=== PATIENT | male | born 1950 | race Caucasian/White ===

== ENCOUNTER 2020-01-24 07:23 | Outpatient (RCR) | payer SELFPAY | END 2020-08-23 14:23 | disposition home or self-care (01) | LOC: ANHCPRIII 07:23 | PROVIDERS: Visit Provider Internal Medicine Cardiovascular Disease | DX: Z95.1 Presence of aortocoronary bypass graft (principal); Z95.2 Presence of prosthetic heart valve | CPT/HCPCS: 99199 ==

== ENCOUNTER 2020-04-09 14:34 | Emergency (ER) | payer MEDICARE, SELFPAY ==
[2020-04-09] VITALS (7 sets, daily range): BP systolic 126–150; BP diastolic 75–87; PULSE 69–86; RESP 16–22; TEMP 36.7; O2SAT 97–100
--- NOTE | ~2020-04-09 | XR_ITS ---
EXAMINATION: XR chest 2V DATE: 04/09/2020 15:16 INDICATION: Left-sided chest pain TECHNIQUE: PA and lateral views of the chest are obtained. COMPARISON: 12/17/2018 FINDINGS: There is mild atelectasis of the lingula. There is no pleural effusion or pneumothorax. The re are changes of prior cardiac valve surgery. There is moderate thoracic spondylosis. IMPRESSION: 1. No acute cardiopulmonary abnormality. Reviewed, dictated and finalized at location A.
--- NOTE | 2020-04-09 14:44 | ECG_ITS ---
Measurements Intervals [place] Rate: 84 P: 65 RI: 180 QRS: -6 QRSD: 89 T: 53 QT: 378 QTc: 447 Interpretive Statements SINUS RHYTHM EARLY PRECORDIAL R/S TRANSITION NONSPECIFIC ST & T-WAVE ABNORMALITY- INF/LAT LEADS BORDERLINE ECG Electronically Signed On 04-09-2020 16:20:02 CDT by Jay Jonas D.O.
[2020-04-09 15:02] LABS: Basophils Percent Auto 0.3 % (0.2-1.2); Eosinophils Absolute Auto 0.3 K/mm3 (0-0.3); Eosinophils Percent Auto 3.5 % (0-4.4); Hematocrit 47.9 % (42.0-52.0); Hemoglobin 16.1 g/dL (14.0-18.0); Immature Granulocyte Absolute 0.02 K/mm3 (0.00-0.031); Immature Granulocyte Percent A 0.3 % (0-0.5); Lymphocytes Absolute Auto 1.82 K/mm3 (0.9-3.2); Lymphocytes Percent Auto 24.2 % (18.3-44.2); Mean Corpuscular HGB Conc 33.6 g/dl (32-36); Mean Corpuscular Hemoglobin 33.6 pg (26-34); Mean Platelet Volume 10.2 fl (7.4-10.4); Monocytes Absolute Auto 0.6 K/mm3 (0.1-0.6); Monocytes Percent Auto 7.6 % (2.6-8.5); Neutrophils Absolute Auto 4.8 K/mm3 (1.3-6.7); Neutrophils Percent Auto 64.1 % (45.5-73.1); Platelet Count Result 228 k/mm3 (150-375); Red Blood Count 4.79 M/mm3 (4.6-6.20); Red Cell Distribution Width 13.7 % (11.5-14.5); White Blood Count 7.5 K/mm3 (4.5-10.0)
[2020-04-09 15:12] LABS: Prothrombin Time 12.7 Seconds (11.1-14.7)
[2020-04-09 15:13] LABS: Partial Thromboplastin Time 26.1 SECONDS (22.3-36.8)
[2020-04-09 15:15] LABS: Blood Urea Nitrogen 21 mg/dL (9-20); Calcium 9.3 mg/dL (8.4-10.2); Carbon Dioxide 27 mmol/L (22-30); Chloride 102 mmol/L (98-107); Estimated CRCL calculation 66 ml/min; Estimated Glomerular Filt Rate > 60; Glucose 107 mg/dL (75-110); Potassium 4.3 mmol/L (3.4-5.0); Sodium 138 mmol/L (137-145)
[2020-04-09 15:27] LABS: Troponin I < 0.012 ng/mL (0.000-0.034)
--- NOTE | 2020-04-09 15:51 | ED.CHESTPAIN ---
HPI - Chest Pain General Chief Complaint: Chest Pain Stated Complaint: chest pain Time Seen by Provider: 04/09/20 15:06 Source: patient Mode of arrival: ambulatory Limitations: no limitations History of Present Illness HPI narrative: This patient is a 70 year old male with history of mitral valve repair and CaBG who presents for evaluation of mid chest pain. Patient states he has been having intermittent nonradiating midsternal sharp chest pain since yesterday. When his pain presents it will last a few minutes and then it resolves spontaneously. He denies having pain now. He thinks his pain happens when he moves his upper body. He denies exertional pain, sob, diaphoresis, nausea, or vomiting. His advanced practice nurse psychotherapist is Dr. Rai Related Data Home Medications Medication Instructions Recorded Confirmed Aspir-81 04/09/20 04/09/20 carbidopa-levodopa tablet 04/09/20 ezetimibe mg 04/09/20 hydrochlorothiazide 04/09/20 isosorbide mononitrate mg PO 04/09/20 losartan 04/09/20 propranolol 04/09/20 rosuvastatin mg 04/09/20 Allergies Allergy/AdvReac Type Severity Reaction Status Date / Time No Known Allergies Allergy Verified 04/09/20 14:41 Review of Systems Review of Systems: All systems reviewed & are unremarkable except as noted in HPI and below Constitutional: Constitutional: Denies chills and Denies fever(s) ENT: Denies vertigo and Denies nasal congestion Cardiovascular: Cardiovascular: Reports chest pain, Denies rapid heart rate, Denies radiating jaw, neck or arm pain and Denies slow heart rate Respiratory: Respiratory: Denies cough, Denies dyspnea and Denies wheezing Gastrointestinal: Gastrointestinal: Denies abdominal pain, Denies diarrhea, Denies nausea and Denies vomiting [facility] Past Medical History Medical History (Updated 04/09/20 @ 18:44 by Amira Jj MD) CAD (coronary artery disease) Mitral valve disease Surgical History Surgical History (Updated 04/09/20 @ 15:52 by Amira Jj MD) H/O mitral valve repair S/P CABG x 2 Social History Social History Smoking status: Never smoker Alcohol intake: current Exam Const: General: no acute distress and alert Orientation/consciousness: patient oriented x3 Chest: Other: focal tenderness mid sternum Resp: Effort & Inspection: normal respiratory effort and no retractions Auscultation: clear to auscultation bilaterally Cardio: Rate: regular rate Rhythm: regular rhythm Heart sounds: no murmurs GI: Inspection: non-distended Auscultation: normal bowel sounds Other: soft nontender Back/Spine/Pelvis: Back: no CVA tenderness Skin: General skin exam: normal color Rashes: no rashes Course Reevaluation(s) Reevaluation #1: patient has no pain. His chest pain was not associated with any other symptoms and is extremely atypical. I do not believe this is angina but he will call his advanced practice nurse psychotherapist tomorrow. Date: 04/09/20 Time: 18:43 Vital Signs Vital signs: Vital Signs Temperature 98.0 F 04/09/20 14:37 Pulse Rate 86 04/09/20 14:37 Respiratory Rate 20 04/09/20 14:37 Blood Pressure 150/87 H 04/09/20 14:37 Pulse Oximetry 98 04/09/20 14:37 Temperature 98.0 F 04/09/20 14:37 Pulse Rate 77 04/09/20 19:00 Respiratory Rate 22 H 04/09/20 19:00 Blood Pressure 137/87 04/09/20 19:00 Pulse Oximetry 100 04/09/20 19:00 MDM - Chest Pain Lab Data Attestation: I reviewed the patient's lab results. Result diagrams: 04/09/20 14:55 04/09/20 14:55 Labs: Lab Results 04/09/20 04/09/20 04/09/20 Range/Units 14:55 14:55 14:55 WBC 7.5 (4.5-10.0) K/mm3 RBC 4.79 (4.6-6.20) M/mm3 Hgb 16.1 (14.0-18.0) g/dL Hct 47.9 (42.0-52.0) % MCV 100.0 (80-100) fl MCH 33.6 (26-34) pg MCHC 33.6 (32-36) g/dl RDW 13.7 (11.5-14.5) % Plt Count 228 (150-375) k/mm3 MPV 10.2 (7.4-10.4) fl Immature Gran % (Auto) 0.3 (0-0.5)
[2020-04-09] MEDS: ASPIRIN 81 MG CHEWABLE TABLET 324 MG PO (15:58)
[2020-04-09 18:16] LABS: Troponin I < 0.012 ng/mL (0.000-0.034)
== END 2020-04-09 19:00 | disposition home or self-care (01) ==
PROVIDERS: Emergency Provider General Practice; PCP Family Medicine Adolescent Medicine
DX: R07.89 Other chest pain (principal); I34.1 Nonrheumatic mitral (valve) prolapse; Z95.1 Presence of aortocoronary bypass graft; I25.10 Atherosclerotic heart disease of native coronary artery without angina pectoris; R94.31 Abnormal electrocardiogram [ECG] [EKG]
CPT/HCPCS: 36415; 71046; 80048; 84484; 85025; 85610; 85730; 93005; 99284; A9270

== ENCOUNTER 2021-11-05 08:27 | Outpatient (CLI) | payer MEDICARE, SELFPAY ==
--- NOTE | ~2021-11-05 | NM_ITS ---
EXAMINATION: NM bone scan whole body DATE: 11/05/2021 12:01 INDICATION: Prostate cancer TECHNIQUE: 26 mCi Tc-99m HDP was administered intravenously. Delayed whole-body scintigrams were obt ained. COMPARISON: Pelvis MRI dated 11/05/2021 and chest radiograph dated 04/09/2020 FINDINGS: Mild likely degenerative joint centered uptake at the bilateral acromioclavicular and sternoclavicula r joints. Mild likely enthesopathic uptake at the bilateral patellae and anterior tibial tuberosities . Subtle foci of increased uptake along the inferior sternum. The location and absence of other suspi cious foci of abnormal bone uptake to suggest metastatic disease suggest these are likely related to either the costochondral calcification ribs or related to median sternotomy wires as seen on the prio r radiographs. IMPRESSION: 1. No foci of bone uptake suspicious for metastatic disease. Reviewed, dictated and finalized at [facility]. F TALLY CLERK
--- NOTE | ~2021-11-05 | MR_ITS ---
EXAMINATION: MR pelvis wo/w con DATE: 11/05/2021 11:12 INDICATION: Prostate cancer TECHNIQUE: Magnetic resonance imaging (MRI) of the pelvis was performed without and with 20 mL Multih ance intravenous contrast. [place] sequences of the pelvis included axial and coronal T2-weighted S S FSE, axial, sagittal and coronal 2D FIESTA, axial 2D FIESTA FS, axial SSFSE-IR EMMETT, axial dual-echo T1-weighted FSPGR, axial and coronal T1 weighted LAVA, 3D axial T2 Cube, axial diffusion-weighted SE with apparent diffusion coefficient (ADC) maps. Postcontrast sequences included a time course axial T1-weighted LAVA and sagittal and coronal T1-weighted LAVA. COMPARISON: None. FINDINGS: Prostatomegaly measuring 5.2 x 3.6 to 4.7 cm . There is a region of T2 hyperintensity consistent with hydrocele spacer positioned between the posterior margin of the prostate in the anterior wall of the rectum. The collection measures 3.9 cm craniocaudally, 1.2 cm AP and 2.0 cm medial to lateral. There is anterior extension of a small portion of the hydrogel along the left inferior margin of the prost ate. Bladder is normal. Moderate scattered diverticulosis along the descending and sigmoid colon with out adjacent inflammatory change to suggest diverticulitis remainder of the visualized bowels are unr emarkable. Small fat-containing umbilical hernia. No free fluid in the pelvis or lower abdomen. No pa thologically enlarged pelvic, inguinal or lower abdominal lymphadenopathy. Mild lower lumbar spondylo sis. Normal bone marrow signal with no pathologic marrow replacing process. IMPRESSION: 1. 3.9 x 1.2 x 2.0 cm collection of hydrogel situated between the anterior wall of the rectum and the enlarged prostate. 2. No evident metastatic disease. 3. Diverticulosis. Reviewed, dictated and finalized at location . STRINGER
[2021-11-05 09:55] LABS: Estimated Glomerular Filt Rate > 60
== END 2021-11-05 08:28 | disposition home or self-care (01) ==
LOC: ANHIMG 08:38
PROVIDERS: PCP Family Medicine Adolescent Medicine; Visit Provider Radiology Radiation Oncology
DX: C61 Malignant neoplasm of prostate (principal); K57.90 Diverticulosis of intestine, part unspecified, without perforation or abscess without bleeding
CPT/HCPCS: 72197; 78306; A9561; A9577

== ENCOUNTER 2022-12-18 14:17 | Observation (INO) | payer MEDICARE, SELFPAY ==
--- NOTE | ~2022-12-18 | US_ITS ---
EXAMINATION: US venous doppler [facility] DATE: 12/19/2022 15:44 INDICATION: Lower limb edema. TECHNIQUE: Grayscale ultrasound images without and with compression and Doppler ultrasound images of the bilateral lower extremity veins were obtained. COMPARISON: None. FINDINGS: The visualized portions of right common femoral vein, profunda (deep) femoral vein, femoral vein, pop liteal vein, peroneal veins, posterior tibial veins, and greater saphenous vein outflow are patent. The visualized portions of left common femoral vein, profunda femoral vein, femoral vein, popliteal v ein, peroneal veins, posterior tibial veins, and greater saphenous vein outflow are patent. IMPRESSION: 1. No deep venous thrombosis. Reviewed, dictated and finalized at location A. SHOW HOST
[2022-12-18 14:33] VITALS: BP 150/95; PULSE 83; RESP 18; TEMP 36.9; O2SAT 97
[2022-12-18 17:17] VITALS: BP 158/95; PULSE 81; O2SAT 97
[2022-12-18 19:47] LABS: Alanine Aminotransferase 15 U/L (6-50); Albumin Level 4.2 g/dL (3.5-5.1); Alkaline Phosphatase 89 U/L (38-126); Anion Gap 8 mmol/L (8-16); Aspartate Amino Transferase 25 U/L (17-59); Bilirubin,Total 1.1 mg/dL (0.2-1.3); Blood Urea Nitrogen 23 mg/dL (9-20); Carbon Dioxide 28 mmol/L (22-30); Chloride 108 mmol/L (98-107); Estimated CRCL calculation 68 ml/min; Estimated Glomerular Filt Rate > 60; Glucose 101 mg/dL (65-110); Potassium 3.7 mmol/L (3.4-5.0); Sodium 144 mmol/L (137-145)
[2022-12-18 19:48] LABS: Basophils Percent Auto 0.3 % (0.2-1.2); Eosinophils Absolute Auto 0.2 K/mm3 (0-0.3); Eosinophils Percent Auto 2.9 % (0-4.4); Hematocrit 44.4 % (42.0-52.0); Hemoglobin 13.9 g/dL (14.0-18.0); Immature Granulocyte Absolute 0.02 K/mm3 (0.00-0.031); Immature Granulocyte Percent A 0.3 % (0-0.5); Lymphocytes Absolute Auto 0.67 K/mm3 (0.9-3.2); Lymphocytes Percent Auto 10.7 % (18.3-44.2); Mean Corpuscular HGB Conc 31.3 g/dl (32-36); Mean Corpuscular Hemoglobin 32.4 pg (26-34); Mean Corpuscular Volume 103.5 fl (80-100); Mean Platelet Volume 9.9 fl (7.4-10.4); Monocytes Absolute Auto 0.6 K/mm3 (0.1-0.6); Monocytes Percent Auto 8.9 % (2.6-8.5); Neutrophils Absolute Auto 4.8 K/mm3 (1.3-6.7); Neutrophils Percent Auto 76.9 % (45.5-73.1); Platelet Count Result 182 k/mm3 (150-375); Red Blood Count 4.29 M/mm3 (4.6-6.20); Red Cell Distribution Width 13.9 % (11.5-14.5); White Blood Count 6.3 K/mm3 (4.5-10.0)
[2022-12-18 20:16] VITALS: BP 152/94; PULSE 81; RESP 16; TEMP 36.7; O2SAT 98
--- NOTE | 2022-12-18 21:59 | ED.MALEGU ---
HPI - Male Genitourinary General Chief complaint: Urogenital-Male Stated complaint: hematuria Time Seen by Provider: 12/18/22 21:08 History of Present Illness HPI Narrative: Patient with history of prostate ca receiving radiation therapy has had urinary retention and hematuria since yesterday. No fevers or chills, has never had symptoms like this in the past. Now completely unable to produce urine at the vertigo. Is distended and uncomfortable Related Data Home Medications Medication Instructions Recorded Confirmed Aspir-81 1 tablet PO DAILY 04/09/20 12/19/22 carbidopa 25 mg-levodopa 100 mg 2 tablet PO TID 04/09/20 12/19/22 tablet ezetimibe 10 mg tablet 1 mg PO DAILY 04/09/20 12/19/22 losartan 100 mg tablet 100 mg PO DAILY 04/09/20 12/19/22 propranolol 60 mg tablet 60 mg PO DAILY 04/09/20 12/19/22 rosuvastatin 40 mg tablet 40 mg PO DAILY 04/09/20 12/19/22 omega-3 fatty acids-fish oil 360 1 cap PO DAILY 10/23/22 12/19/22 mg-1,200 mg capsule (Fish Oil) tamsulosin 0.4 mg capsule 0.4 mg PO DAILY 10/23/22 12/19/22 escitalopram oxalate 10 mg tablet 10 mg PO DAILY 12/19/22 12/19/22 mirtazapine 7.5 mg tablet 3.75 mg PO HS 12/19/22 12/19/22 oxybutynin chloride 15 mg 15 mg PO DAILY 12/19/22 12/19/22 tablet,extended release 24 hr Allergies Allergy/AdvReac Type Severity Reaction Status Date / Time No Known Allergies Allergy Verified 12/19/22 02:15 Review of Systems Review of Systems: CONST: No fever. HEENT: No sore throat C/V: No chest pain RESP: No cough GI: Reports abdominal distention : Hematuria and retention M/S: No joint pain. SKIN: No rash. NEURO: [No headache or focal numbness or weakness] PSYCH: [No depression] [facility] Past Medical History Medical History (Updated 12/19/22 @ 04:07 by Isatu Robertson MD) CAD (coronary artery disease) Malignant neoplasm of prostate (2020) 2020 Mitral valve disease Parkinson's disease 12/04 Surgical History Surgical History H/O mitral valve repair (2016) History of coronary artery stent placement (2004) S/P CABG x 2 (2016) Family History Family History Father Heart disease Mother Heart disease Social History Social History Smoking status: Former smoker Tobacco type: cigarettes Alcohol intake: never Substance use: never Substance use type: does not use Lack of Transportation: No Lack of Food: Never True Current Housing: I Have Housing Concerned About Future Housing: No Difficulty Paying Gas/Electric Bills: No Difficulty Paying for Meds: No Currently Unemployed: No Education: Trade/Vocational Certificate Difficulty w/ Childcare or Family Care: No Spiritual care concerns: No Exam Narrative: EXAMINATION OF ORGAN SYSTEMS/BODY AREAS: Constitutional: Vital signs per nursing GENERAL: Appears quite uncomfortable HEAD: Normal with no signs of head trauma. EYES: EOMI, conjunctiva normal ENT: Hearing grossly intact LUNGS: Nonlabored breathing. HEART: [Regular rate and rhythm] ABD: [Soft], [distended, somewhat tender to palpation] EXT: Normal range of motion SKIN: [No rashes or lesions.] NEURO: [Alert and oriented x 3. Tremulous.] PSYCH: Normal affect Course Vital Signs Vital signs: Vital Signs Temperature 98.4 F 12/18/22 14:33 Pulse Rate 83 12/18/22 14:33 Respiratory Rate 18 12/18/22 14:33 Blood Pressure 150/95 H 12/18/22 14:33 Pulse Oximetry 97 12/18/22 14:33 Oxygen Delivery Room Air 12/18/22 14:33 Temperature 96.9 F L 12/19/22 02:20 Pulse Rate 82 12/19/22 02:20 Respiratory Rate 20 12/19/22 02:20 Blood Pressure 126/67 12/19/22 02:20 Pulse Oximetry 100 12/19/22 02:20 Oxygen Delivery Room Air 12/19/22 02:47 MDM - Male Genitourinary MDM Narrative Medical decision making narrative: 72-year-old male presenting with u
[2022-12-18 22:02] LABS: Appearance Urine Cloudy (Clear); Bilirubin Urine 1+ (Negative); Blood Urine 3+ (Negative); Color Urine Yellow (Yellow); Glucose Urine UA Negative (Negative); Ketones Urine Trace mg/dL (Negative); Leukocyte Esterase Ur 3+ LEU/UL (Negative); Nitrate Urine Negative (Negative); Protein Urine 3+ mg/dL (Negative)
[2022-12-18 22:07] LABS: Bacteria Urine Trace /hpf; Mucus Urine Heavy /lpf; RBC Urine >75 /hpf (0-2); Squamous Epithelial Cell Urine Many /hpf (Few); WBC Urine >75 /hpf
[2022-12-18 22:08] LABS: Add Urine Microscopic? YES
[2022-12-18] MEDS: CIPROFLOXACIN 400 MG/D5W 200ML 200 ML 200 MG IVPB (22:33)
--- NOTE | 2022-12-18 23:23 | WPDURCON ---
Assessment and Plan Assessment and plan (1) Urinary retention: Code(s): R33.9 - Retention of urine, unspecified Status: Acute Assessment and Plan: I attempted to advance a glide wire per urethra, however the wire kept bending back. Thus a flexible cystoscope was placed and a dense bulbar urethral stricture noted with a 4-6F opening noted. A glidewire was advanced through and to the bladder. A 16F [place] was then advanced through the stricture and to the bladder with return of urine, 10 cc of sterile water placed, 1600 mL of tea colored urine drained. Plan Maintain catheter, minimum 1 week. Recommend antibiotics to cover pathogens for 3-4 days. Follow up with Dr. Anaya. Urology Consult Note HPI Date Seen: 12/18/22 Primary Care Provider: iWll Mac MD Consult Narrative Narrative: Nando Interiano is a 72 year old male Review of Systems Review of Systems: 72 year old man with Parkinson's and history of prostate cancer s/p IMRT, current patient of Dr. Lockhart significant LUTS. Started on Gemtesa and then Ditropan. Reports he has not voided for 2 days, except for small squirts of urine and as of this afternoon, blood without clots. SCr 1.00 mg/dL. He denies fevers or chills. ER has attempted catheter placement x2 without success. Constitutional: Comments: none Eyes: Comments: none ENT: Comments: none Cardiovascular: Comments: none Respiratory: Comments: none Gastrointestinal: Comments: none Genitourinary: Comments: urinary retention, hematuria. Musculoskeletal: Comments: none Integumentary/Breasts: Comments: none Neurologic: Comments: none Psychiatric: Comments: none [facility] Past Medical History Medical History (Updated 12/18/22 @ 23:27 by Andrew Salmon MD) CAD (coronary artery disease) Mitral valve disease Surgical History Surgical History (Updated 10/22/22 @ 16:33 by Will Mac MD) H/O mitral valve repair (2016) History of coronary artery stent placement (2004) S/P CABG x 2 (2016) Social History Social History Smoking status: Never smoker Alcohol intake: current Meds Home Medications and Allergies Home Medications Medication Instructions Recorded Confirmed Type Aspir-81 04/09/20 04/09/20 History carbidopa 25 mg-levodopa 100 mg tablet 04/09/20 History tablet ezetimibe 10 mg tablet mg 04/09/20 History losartan 100 mg tablet 04/09/20 History propranolol 60 mg tablet 04/09/20 History rosuvastatin 40 mg tablet mg 04/09/20 History omega-3 fatty acids-fish oil 360 1 cap PO DAILY 10/23/22 History mg-1,200 mg capsule (Fish Oil) tamsulosin 0.4 mg capsule 0.4 mg PO DAILY 10/23/22 History Allergies Allergy/AdvReac Type Severity Reaction Status Date / Time No Known Allergies Allergy Verified 10/23/22 10:07 Vital Signs Vital Signs - 24 hr 12/18/22 14:33 12/18/22 17:17 12/18/22 20:16 Temperature 98.4 F 98.1 F Pulse Rate 83 81 81 Respiratory Rate 18 16 Blood Pressure 150/95 H 158/95 H 152/94 H Pulse Oximetry 97 97 98 Oxygen Delivery Room Air Exam Narrative: Minimal distress, A&Ox3 RRR eWOB Soft, bladder palpable. Blood at meatus. Results Labs 12/18/22 19:26 12/18/22 19:26 Labs: Short CBC 12/18/22 Range/Units 19:26 WBC 6.3 (4.5-10.0) K/mm3 Hgb 13.9 L (14.0-18.0) g/dL Hct 44.4 (42.0-52.0) % Plt Count 182 (150-375) k/mm3 BMP 12/18/22 19:26 Sodium 144 Potassium 3.7 Chloride 108 H Carbon Dioxide 28 BUN 23 H Creatinine 1.00 Glucose 101 Calcium 9.0 Liver Function 12/18/22 Range/Units 19:26 Total Bilirubin 1.1 (0.2-1.3) mg/dL AST 25 (17-59) U/L ALT 15 (6-50) U/L Alkaline Phosphatase 89 (38-126) U/L Albumin 4.2 (3.5-5.1) g/dL Urine 12/18/22 Range/Units 21:45 Urine Color Yellow (Yellow) Urine Appearance Cloudy H (Clear) Urine pH
--- NOTE | 2022-12-18 23:31 | P.OP_ITS ---
Procedure Note - Detailed Date of Procedure 12/18/22 Pre-op Diagnosis urinary retention Post-op Diagnosis Same Procedure Performed 1. Flexible cystoscopy 2. Urethral stricture dilation by calibration 3. Complex catheter placement Surgeon Andrew Salmon MD Anesthesia None Indications Patient in urinary retention and unable to place catheter after multiple attempts by ER staff. Findings 4-6F urethral sticture 16F [place] placed over wire with some difficulty. 1600 mL of tea colored urine drained. Description of Procedure Under sterile conditions a flexible cystoscope was placed atraumatically. The cystosope was navigated through the urethra to the bulbar urethra where a dense stricture was noted with a 4-6 cm lumen noted. A straight glidewire was advanced through the working channel of the cystoscope and through the lumen of the stricture and into the bladder. The cystoscope was removed and a 16F [place] catheter advanced over the wire and into the bladder with return of urine, 10 cc of sterile water placed in balloon. Patient tolerated well. Estimated Blood Loss 2 (2 mL) Drains Yes (16F [place] catheter) Condition Stable Disposition Other (Per ER)
[2022-12-18] MEDS: SODIUM CHLORIDE 0.9% IV 1,000 ML 999 ML (23:32)
[2022-12-19] VITALS (8 sets, daily range): BP systolic 112–132; BP diastolic 64–72; PULSE 53–82; RESP 16–20; TEMP 36.1–37.1; O2SAT 96–100
--- NOTE | 2022-12-19 | ECHO_ITS ---
Patient Info Name: Nando Interiano Age: 72 years : 1950 Gender: Male Ht: 71 in Wt: 215 lbs BSA: 2.23 m2 HR: 58 bpm BP: 112 / 64 mmHg Heart Rhythm: Sinus Rhythm Technical Quality: Fair Exam Date: 12/19/2022 4:17 PM Exam Location: [facility] Pulmonary Exam Room: 257 Patient Status: Inpatient Admit Date: 12/18/2022 Staff Ordering Physician: Jacqueline Barrientos PA-C Brand Coordinator: Dayanna Recinos RDCS Attending Provider: Batool Garcia DO Referring Physician: Floyd CARTER; Exam Type: CA echo dop color flow w con Study Info Indications - MVR EDEMA Complete two-dimensional, color flow and Doppler transthoracic echocardiogram is performed with contrast to opacify the left ventricle and to improve the deliniation of the left ventricle endocardial borders. Contrast/Agitated Saline Contrast/Ag. Saline: Definity Amount: 2.00 ml Administered By: Dayanna Recinos [facility] Existing IV Access: Yes IV Access Condition: patent with no signs of infiltration Summary 1. Left ventricular chamber dimension is mildly enlarged. 2. Left ventricular systolic function is normal, estimated at 60-65%. 3. There is mildly increased left ventricular wall thickness. 4. The left ventricular diastolic function is grade I diastolic dysfunction. 5. Left atrial chamber dimension is mildly enlarged. 6. There is moderate aortic valve regurgitation. 7. There is mild mitral valve regurgitation. 8. There is mild to moderate tricuspid valve regurgitation. 9. Mild pulmonary hypertension, estimated pulmonary arterial systolic pressure is 42 mmHg. 10. There is moderate pulmonic regurgitation. Left Ventricle Left ventricular chamber dimension is mildly enlarged. Left ventricular systolic function is normal, estimated at 60-65%. There is mildly increased left ventricular wall thickness. The left ventricular diastolic function is grade I diastolic dysfunction. Right Ventricle Right ventricular chamber dimension is normal. Right ventricular systolic function is normal. Left Atria Left atrial chamber dimension is mildly enlarged. Right Atria Right atrial chamber dimension is normal. Atrial Septum Intact interatrial septum visualized by color flow imaging. Aortic Valve The aortic valve is trileaflet. There is no aortic valve stenosis. There is moderate aortic valve regurgitation. Pulmonic Valve The pulmonic valve is normal. There is no pulmonic valve stenosis. There is moderate pulmonic regurgitation. Mitral Valve The mitral valve has thickened leaflets. There is no mitral valve stenosis. There is mild mitral valve regurgitation. Tricuspid Valve The tricuspid valve leaflets are normal. There is no significant tricuspid valve stenosis. There is mild to moderate tricuspid valve regurgitation. Mild pulmonary hypertension, estimated pulmonary arterial systolic pressure is 42 mmHg. Pericardium/Pleural The pericardium appears normal. There is trivial pericardial effusion. Aorta The aortic root size at the sinus of Valsalva is dilated. Left Ventricular Outflow Tract Name Value Normal LVOT 2D LVOT Diameter 2.21 cm L
[2022-12-19] MEDS: ACETAMINOPHEN 500 MG TABLET 1000 MG PO (00:33)
[2022-12-19] MEDS: LIDOCAINE HCL 2% GEL UROJET 10 ML PKG MUCOUS MEM (00:35)
--- NOTE | 2022-12-19 02:16 | ADMGEN ---
This patient, Nando Interiano, was admitted to 2 Medical Room 257-01. Patient/family oriented to hospital policies and general routines including ID bracelet, bed and alarms, visiting hours, pain management, procedures, bathroom and other care routines, personal items, smoking policy, room service/diet, and visiting hours. Information on how to activate the Rapid Response Team has been discussed. Patient/Family are encouraged to report perceived risks to care and to ask questions if they do not understand what they are told or what they should do.
[2022-12-19 02:22] LABS: Influenza A QL RT-PCR Negative (Negative); Influenza B QL RT-PCR Negative (Negative); RSV RNA, RT-PCR Negative (Negative); SARS-CoV-2 RNA PCR Negative
[2022-12-19 05:21] LABS: Basophils Percent Auto 0.2 % (0.2-1.2); Eosinophils Absolute Auto 0.1 K/mm3 (0-0.3); Eosinophils Percent Auto 1.9 % (0-4.4); Hematocrit 34.1 % (42.0-52.0); Hemoglobin 10.8 g/dL (14.0-18.0); Immature Granulocyte Absolute 0.02 K/mm3 (0.00-0.031); Immature Granulocyte Percent A 0.3 % (0-0.5); Lymphocytes Absolute Auto 0.56 K/mm3 (0.9-3.2); Lymphocytes Percent Auto 9.7 % (18.3-44.2); Mean Corpuscular HGB Conc 31.7 g/dl (32-36); Mean Corpuscular Hemoglobin 32.2 pg (26-34); Mean Corpuscular Volume 101.8 fl (80-100); Mean Platelet Volume 9.8 fl (7.4-10.4); Monocytes Absolute Auto 0.6 K/mm3 (0.1-0.6); Monocytes Percent Auto 10.3 % (2.6-8.5); Neutrophils Absolute Auto 4.5 K/mm3 (1.3-6.7); Neutrophils Percent Auto 77.6 % (45.5-73.1); Platelet Count Result 143 k/mm3 (150-375); Red Blood Count 3.35 M/mm3 (4.6-6.20); Red Cell Distribution Width 13.5 % (11.5-14.5); White Blood Count 5.8 K/mm3 (4.5-10.0)
[2022-12-19 05:34] LABS: Magnesium 2.1 mg/dL (1.6-2.3); Phosphorus 3.6 mg/dL (2.5-4.5)
[2022-12-19 05:40] LABS: Alanine Aminotransferase 19 U/L (6-50); Albumin Level 2.9 g/dL (3.5-5.1); Alkaline Phosphatase 61 U/L (38-126); Anion Gap 5 mmol/L (8-16); Aspartate Amino Transferase 19 U/L (17-59); Bilirubin,Total 0.9 mg/dL (0.2-1.3); Blood Urea Nitrogen 22 mg/dL (9-20); Carbon Dioxide 26 mmol/L (22-30); Chloride 110 mmol/L (98-107); Estimated CRCL calculation 64 ml/min; Estimated Glomerular Filt Rate > 60; Glucose 99 mg/dL (65-110); Potassium 3.5 mmol/L (3.4-5.0); Sodium 141 mmol/L (137-145)
--- NOTE | 2022-12-19 07:18 | WPDUROPN2 ---
Progress Note: A&P Assessment and Plan (1) Acute urinary retention: Code(s): R33.8 - Other retention of urine Status: Acute (2) Malignant neoplasm of prostate: Onset Date: 2020 Code(s): C61 - Malignant neoplasm of prostate Status: Acute (3) Urinary retention: Code(s): R33.9 - Retention of urine, unspecified Status: Acute Assessment and Plan: Urine minimally blood tinged, no clots. Will need catheter indwelling for 7 days. Possibly home later today if urine continues to clear. Subjective Subjective Date/Time Seen: 12/19/22 07:18 Comfortable, no complaints Review of Systems Cardiovascular: Cardiovascular: Denies chest pain, Denies lightheadedness, Denies palpitations and Denies dyspnea Respiratory: Respiratory: Denies dyspnea Gastrointestinal: Gastrointestinal: Denies diarrhea, Denies nausea and Denies vomiting Genitourinary: Genitourinary: Denies hematuria and Denies dysuria Endocrine: Endocrine: Denies palpitations Exam Const: General: no acute distress Resp: Effort & Inspection: normal respiratory effort GI: Inspection: non-distended GI Palp: No abdominal tenderness and No Guarding due to palpation present (GI) Auscultation: normal bowel sounds Urinary Catheter: Urinary Catheter: patent and draining and urine pink Objective Data Vital Signs Vital Signs: Vital Signs - 24 hr 12/18/22 14:33 12/18/22 17:17 12/18/22 20:16 Temperature 98.4 F 98.1 F Pulse Rate 83 81 81 Respiratory Rate 18 16 Blood Pressure 150/95 H 158/95 H 152/94 H Pulse Oximetry 97 97 98 Oxygen Delivery Room Air 12/19/22 01:49 12/19/22 02:20 12/19/22 02:47 Temperature 98.8 F 96.9 F L Pulse Rate 82 82 Respiratory Rate 18 20 Blood Pressure 132/72 126/67 Pulse Oximetry 98 100 Oxygen Delivery Room Air 12/19/22 04:09 Temperature 97.1 F L Pulse Rate 67 Respiratory Rate 20 Blood Pressure 112/64 Pulse Oximetry 96 Oxygen Delivery Intake/Output Intake/Output: Intake & Output 12/16/22 12/17/22 12/18/22 12/19/22 23:59 23:59 23:59 23:59 Intake Total 1580 Output Total 1200 1650 Balance -1200 -70 Meds/Results Medications: Active Medications Generic Name Dose Route Start Last Admin Trade Name Silverio PRN Reason Stop Dose Admin Acetaminophen 650 mg 12/19/22 03:49 Acetaminophen 325 Mg Tablet PO Q4H PRN Mild Pain (1-3) or Fever Carbidopa/Levodopa 2 tablet 12/19/22 08:00 Carbidopa/Levodopa 25/100 Mg Tablet PO TIDWM [facility] Ezetimibe 10 mg 12/19/22 09:00 Ezetimibe 10 Mg Tablet PO DAILY [facility] Escitalopram Oxalate 10 mg 12/19/22 09:00 Escitalopram Oxalate 10 Mg Tablet PO DAILY [facility] Fish Oil 1 gm 12/19/22 09:00 [place] 3 Polyunsat Fatty Acids 1 Gm Cap PO DAILY [facility] Losartan Potassium 100 mg 12/19/22 09:00 Losartan Potassium 100 Mg Tablet PO DAILY [facility] Mirtazapine 3.75 Mg 1 each 12/19/22 21:00 Tablet PO HS [facility] Propranolol HCl 60 mg 12/19/22 09:00 Propranolol Hcl 60 Mg Capsule Cr PO DAILY [facility] Rosuvastatin Calcium 40 mg 12/19/22 09:00 Rosuvastatin 10 Mg Tablet PO DAILY [facility] Tamsulosin HCl 0.4 mg 12/19/22 09:00 Tamsulosin Hcl 0.4 Mg Capsule PO DAILY [facility] Labs Labs: Laboratory Results - last 24 hr 12/18/22 12/18/22 12/18/22 19:26 19:26 21:45 WBC 6.3 RBC 4.29 L Hgb 13.9 L Hct 44.4 MCV 103.5 H MCH 32.4 MCHC 31.3 L RDW 13.9 Plt Count 182 MPV 9.9 Immature Gran % (Auto) 0.3 Neut % (Auto) 76.9 H Lymph % (Auto) 10.7 L [place] % (Auto) 8.9 H Eos % (Auto) 2.9 Baso % (Auto) 0.3 Lymph # (Auto) 0.67 L [place] # (Auto) 0.6 Eos # (Auto) 0.2 Baso # (Auto) 0.0 Abs Immat Gran (auto) 0.02 Absolute Neuts (auto) 4.8 Absolute Nucleated RBC 0.0 Nucleated RBC % 0.0 Sodium 144 Potassium 3.7 Chloride 108 H Carbon Dioxide 28 Anion Gap 8 BUN
[2022-12-19] MEDS: TAMSULOSIN HCL 0.4 MG CAPSULE PO (08:48)
[2022-12-19] MEDS: LOSARTAN POTASSIUM 100 MG TABLET PO (08:48)
[2022-12-19] MEDS: ROSUVASTATIN 10 MG TABLET 40 MG PO (08:48)
[2022-12-19] MEDS: CARBIDOPA/LEVODOPA 25/100 MG TABLET 2 TABLET PO ×3 (08:48→18:07)
[2022-12-19] MEDS: PROPRANOLOL HCL 60 MG CAPSULE CR PO (08:49)
[2022-12-19] MEDS: OMEGA 3 POLYUNSAT FATTY ACIDS 1 GM CAP PO (08:50)
[2022-12-19] MEDS: ESCITALOPRAM OXALATE 10 MG TABLET PO (08:50)
[2022-12-19] MEDS: EZETIMIBE 10 MG TABLET PO (08:50)
[2022-12-19] MEDS: BISACODYL 5 MG TABLET EC 10 MG PO (09:00)
[2022-12-19 11:38] LABS: Toxigenic C. Diff NEGATIVE (NEGATIVE)
--- NOTE | 2022-12-19 13:41 | PM.IMHP ---
H&P: HPI History of Present Illness Date/Time: 12/19/22 13:41 Chief Complaint: Urinary tension, hematuria Narrative: This is a 72-year-old male with a history of prostate cancer, Parkinson's disease, hypertension, and mitral valve disease. Patient presented to the ED on at the 12/18/22 with complaints of urinary retention and hematuria. Patient states that he has not urinated in 2 days prior to ED arrival. Patient noticed blood when he was attempt to go to the bathroom and about 3 drops of urine came out with blood in it. Patient states that he had feelings of feeling bloated and felt as if he had to use the restroom. When he attempted to urinate nothing would come out. Denies pain, fever, nausea vomiting. Bladder scan done in the ED and showed greater than 1 L of urine in the bladder. Chou catheter placement attempted although ER staff could not place catheter. Urology consulted and [address] [place] was placed through the stricture and into the bladder. 1600 mL of tea-colored urine was drained. UA positive for 3+ leukocyte esterase, greater than 75 RBCs, greater than 75 wbc's, many squamous epithelial cells and heavy mucus. Patient not being treated for UTI but urine cultures are pending. Other labs unremarkable. Patient negative COVID and flu. Patient underwent flexible cystoscopy, urethral stricture dilation by calibration and a catheter placement. Patient admitted to observation. Urology following patient. Review of Systems Review of Systems: All systems reviewed & are unremarkable except as noted in HPI and below PMFSH Past Medical History Medical History CAD (coronary artery disease) Malignant neoplasm of prostate (2020) 2020 Mitral valve disease Parkinson's disease 12/04 Surgical History Surgical History H/O mitral valve repair (2016) History of coronary artery stent placement (2004) S/P CABG x 2 (2016) Family History Family History Father Heart disease Mother Heart disease Social History Social History Smoking status: Former smoker Tobacco type: cigarettes Alcohol intake: never Substance use: never Substance use type: does not use Lack of Transportation: No Lack of Food: Never True Current Housing: I Have Housing Concerned About Future Housing: No Difficulty Paying Gas/Electric Bills: No Difficulty Paying for Meds: No Currently Unemployed: No Education: Trade/Vocational Certificate Difficulty w/ Childcare or Family Care: No Spiritual care concerns: No Meds Home Medications and Allergies Home Medications Medication Instructions Recorded Confirmed Type Aspir-81 1 tablet PO DAILY 04/09/20 12/19/22 History carbidopa 25 mg-levodopa 100 mg 2 tablet PO TID 04/09/20 12/19/22 History tablet ezetimibe 10 mg tablet 1 mg PO DAILY 04/09/20 12/19/22 History losartan 100 mg tablet 100 mg PO DAILY 04/09/20 12/19/22 History propranolol 60 mg tablet 60 mg PO DAILY 04/09/20 12/19/22 History rosuvastatin 40 mg tablet 40 mg PO DAILY 04/09/20 12/19/22 History omega-3 fatty acids-fish oil 360 1 cap PO DAILY 10/23/22 12/19/22 History mg-1,200 mg capsule (Fish Oil) tamsulosin 0.4 mg capsule 0.4 mg PO DAILY 10/23/22 12/19/22 History escitalopram oxalate 10 mg tablet 10 mg PO DAILY 12/19/22 12/19/22 History mirtazapine 7.5 mg tablet 3.75 mg PO HS 12/19/22 12/19/22 History oxybutynin chloride 15 mg 15 mg PO DAILY 12/19/22 12/19/22 History tablet,extended release 24 hr Allergies Allergy/AdvReac Type Severity Reaction Status Date / Time No Known Allergies Allergy Verified 12/19/22 02:15 Vital Signs Vital Signs - 24 hr 12/18/22 14:33 12/18/22 17:17 12/18/22 20:16 Temperature 98.4 F 98.1 F Pulse Rate 83 81 81 Respiratory Rate 18 16 [place]
[2022-12-19] MEDS: PERFLUTREN LIPID MICROSPHERES 1.5 ML VIAL DILUTED TO 10 ML TOTAL VOLUME IV PUSH (16:40)
--- NOTE | 2022-12-19 16:47 | IVDEFINITY ---
Prior to administration of IV Definity the patient was educated on the risks and benefits of the imaging enhancing agent including potential adverse side effects. The patient verbalized understanding. Allergies were verified. No exclusion criteria were identified and at least one of the following inclusion criteria were met: 1) physician request, 2) patient technically difficult to image (per the [place] [employer] guidelines of two or more segments not discernable within the apical view), or 3) questionable left ventricular function. ?
[2022-12-19] MEDS: ACETAMINOPHEN 325 MG TABLET 650 MG PO (20:59)
[2022-12-20 04:36] VITALS: BP 136/74; PULSE 55; RESP 20; TEMP 36; O2SAT 96
[2022-12-20 06:21] LABS: Basophils Percent Auto 0.4 % (0.2-1.2); Eosinophils Absolute Auto 0.3 K/mm3 (0-0.3); Eosinophils Percent Auto 7.2 % (0-4.4); Hematocrit 35.2 % (42.0-52.0); Hemoglobin 11.2 g/dL (14.0-18.0); Immature Granulocyte Absolute 0.01 K/mm3 (0.00-0.031); Immature Granulocyte Percent A 0.2 % (0-0.5); Lymphocytes Absolute Auto 0.68 K/mm3 (0.9-3.2); Lymphocytes Percent Auto 14.4 % (18.3-44.2); Mean Corpuscular HGB Conc 31.8 g/dl (32-36); Mean Corpuscular Hemoglobin 32.3 pg (26-34); Mean Corpuscular Volume 101.4 fl (80-100); Mean Platelet Volume 9.7 fl (7.4-10.4); Monocytes Absolute Auto 0.5 K/mm3 (0.1-0.6); Neutrophils Absolute Auto 3.1 K/mm3 (1.3-6.7); Neutrophils Percent Auto 66.8 % (45.5-73.1); Platelet Count Result 153 k/mm3 (150-375); Red Blood Count 3.47 M/mm3 (4.6-6.20); Red Cell Distribution Width 13.7 % (11.5-14.5); White Blood Count 4.7 K/mm3 (4.5-10.0)
[2022-12-20 06:28] LABS: Alanine Aminotransferase 12 U/L (6-50); Albumin Level 3.2 g/dL (3.5-5.1); Alkaline Phosphatase 61 U/L (38-126); Anion Gap 4 mmol/L (8-16); Aspartate Amino Transferase 17 U/L (17-59); Bilirubin,Total 0.9 mg/dL (0.2-1.3); Blood Urea Nitrogen 23 mg/dL (9-20); Calcium 8.1 mg/dL (8.4-10.2); Carbon Dioxide 27 mmol/L (22-30); Chloride 107 mmol/L (98-107); Estimated CRCL calculation 70 ml/min; Estimated Glomerular Filt Rate > 60; Glucose 91 mg/dL (65-110); Potassium 3.4 mmol/L (3.4-5.0); Sodium 138 mmol/L (137-145)
[2022-12-20 06:36] LABS: NT Pro B Type Natriuretic Pept 537 pg/mL (19.9-100)
[2022-12-20 08:35] VITALS: PULSE 57
[2022-12-20] MEDS: PROPRANOLOL HCL 60 MG CAPSULE CR PO (08:35)
[2022-12-20] MEDS: ENOXAPARIN 40 MG/0.4 ML SYRINGE SUB-Q (08:35)
[2022-12-20] MEDS: CARBIDOPA/LEVODOPA 25/100 MG TABLET 2 TABLET PO ×3 (08:36→16:36)
[2022-12-20] MEDS: EZETIMIBE 10 MG TABLET PO (08:36)
[2022-12-20] MEDS: LOSARTAN POTASSIUM 100 MG TABLET PO (08:36)
[2022-12-20] MEDS: OMEGA 3 POLYUNSAT FATTY ACIDS 1 GM CAP PO (08:36)
[2022-12-20] MEDS: ROSUVASTATIN 10 MG TABLET 40 MG PO (08:36)
[2022-12-20] MEDS: TAMSULOSIN HCL 0.4 MG CAPSULE PO (08:36)
[2022-12-20] MEDS: ESCITALOPRAM OXALATE 10 MG TABLET PO (08:36)
--- NOTE | 2022-12-20 11:24 | PM.IMPN ---
Progress Note: A&P Assessment and Plan (1) Acute urinary retention: Code(s): R33.8 - Other retention of urine Status: Acute Assessment and Plan: Patient presents to the ED with acute urinary retention for 2 days. Urology consulted Catheter placement yielding 1600 mL of urine Patient underwent flexible cystoscopy, urethral stricture dilation and catheter placement. Urology following patient appreciate recommendations Recommended patient keep catheter for a total of 7 days. (2) Hematuria: Code(s): R31.9 - Hematuria, unspecified Status: Acute Assessment and Plan: Patient found to be dribbling blood from urethral orifice. Patient found to have urethral stricture Urology following UA suspicious for UTI. Urine culture pending. Patient started on IV Rocephin (3) Malignant neoplasm of prostate: Onset Date: 2020 Code(s): C61 - Malignant neoplasm of prostate Status: Acute Assessment and Plan: Patient received radiation during the months of November and January of 2022. Last PSA a week or 2 ago was within normal limits (4) Edema: Code(s): R60.9 - Edema, unspecified Status: Acute Assessment and Plan: Patient has lower extremity edema and stated that this had just developed over the past week or 2. 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 Patient eager to go home. Patient's swelling mildly improved. Denies fevers, nausea, vomiting, chest pain and shortness of breath. Review of Systems Review of Systems: All systems reviewed & are unremarkable except as noted in HPI and below Exam Narrative: GENERAL: Comfortable, no acute distress HENMT: moist mucous membranes EYES: EOM intact b/l NECK: no lymphadenopathy RESPIRATORY: clear to auscultation CARDIO: RRR GI: soft, nontender, bowel sounds present : Urinary catheter placed and draining blood tinged urine SKIN: no rashes EXTREMITIES: 2+ pitting edema from mid thigh down. Improved from yesterday Objective Data Vital Signs Vital Signs: Vital Signs - 24 hr 12/19/22 14:33 12/19/22 20:06 12/19/22 20:00 Temperature 98.1 F 97.0 F L Pulse Rate 60 53 L 82 Respiratory Rate 16 18 18 Blood Pressure 116/64 121/68 Pulse Oximetry 97 98 98 Oxygen Delivery Room Air 12/20/22 04:36 12/20/22 08:35 12/20/22 08:35 Temperature 96.8 F L Pulse Rate 55 L 57 L Respiratory Rate 20 Blood Pressure 136/74 Pulse Oximetry 96 Oxygen Delivery Room Air Intake/Output Intake/Output: Intake & Output 12/17/22 12/18/22 12/19/22 12/20/22 23:59 23:59 23:59 23:59 Intake Total 2710 750 Output Total 1200 2100 300 Balance -1200 610 450 Meds/Results Medications: Active Medications Generic Name Dose Route Start Last Admin Trade Name Freq PRN Reason Stop Dose Admin Acetaminophen 650 mg 12/19/22 03:49 12/19/22 20:59 Acetaminophen 325 Mg Tablet PO 650 mg Q4H PRN Administration Mild Pain (1-3) or Fever Carbidopa/Levodopa 2 tablet 12/19/22 08:00 12/20/22 08:36 Carbidopa/Levodopa 25/100 Mg Tablet PO 2 tablet TIDWM DEIDRA Administration Ezetimibe 10 mg 12/19/22 09:00 12/20/22 08:36 Ezetimibe 10 Mg Tablet PO 10 mg DAILY DEIDRA Administration Enoxaparin Sodium 40 mg 12/20/22 09:00 12/20/22 08:35 Enoxaparin 40 Mg/0.4 Ml Syringe SUB-Q 40 mg DAILY DEIDRA Administration Escitalopram Oxalate 10 mg 12/19/22 09:00 12/20/22 08:36 Escitalopram Oxalate 10 Mg Tablet PO 10 mg DAILY DEIDRA Administration Fish Oil 1 gm 12/19/22 09:00
[2022-12-20 15:00] VITALS: BP 114/63; PULSE 53; RESP 20; TEMP 36.5; O2SAT 96
--- NOTE | 2022-12-20 16:34 | PM.DS ---
DS: Admitting Diagnosis Discharge Date 12/20/22 Admitting Diagnosis Urinary retention, hematuria DS: Discharge Diagnosis Discharge Diagnosis (1) Acute urinary retention: Code(s): R33.8 - Other retention of urine Status: Acute Assessment and Plan: Patient presents to the ED with acute urinary retention for 2 days. Urology consulted Catheter placement yielding 1600 mL of urine Patient underwent flexible cystoscopy, urethral stricture dilation and catheter placement. Urology following patient appreciate recommendations Recommended patient keep catheter for a total of 7 days. (2) Hematuria: Code(s): R31.9 - Hematuria, unspecified Status: Acute Assessment and Plan: Patient found to be dribbling blood from urethral orifice. Patient found to have urethral stricture Urology following UA suspicious for UTI. Urine culture negative Patient started on IV Rocephin and then discontinued after urine culture negative (3) Malignant neoplasm of prostate: Onset Date: 2020 Code(s): C61 - Malignant neoplasm of prostate Status: Acute Assessment and Plan: Patient received radiation during the months of November and January of 2022. Last PSA a week or 2 ago was within normal limits (4) Edema: Code(s): R60.9 - Edema, unspecified Status: Acute Assessment and Plan: Patient has lower extremity edema and stated that this had just developed over the past week or 2. 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 Patient had not urinated 2 days prior to arrival to ED. patient did notice that he had some blood tinged urine at the urethral orifice and felt as if he should be evaluated. ED nurses were unable to insert Chou catheter and Urology consulted. Chou catheter placed and 1600 mL of tea-colored urine was strained. UA positive for 3+ leukocyte esterase, greater than 75 RBCs, greater than 75 wbc's, many squamous epithelial cells heavy mucus. Patient started on Rocephin. Urine culture sent. Patient underwent flexible cystoscopy, urethral stricture dilation and catheter placement. Patient advised to follow-up with urology as an outpatient to have catheter removed. Urine culture came back negative. Antibiotics discontinued. Patient cleared for discharge to follow-up with urology. Time Spent with Patient Time attestation: Total time spent providing and/or coordinating discharge services: Exam Narrative: GENERAL: Comfortable, no acute distress HENMT: moist mucous membranes EYES: EOM intact b/l NECK: no lymphadenopathy RESPIRATORY: clear to auscultation CARDIO: RRR GI: soft, nontender, bowel sounds present : Urinary catheter placed and draining blood tinged urine SKIN: no rashes EXTREMITIES: 2+ pitting edema from mid thigh down. Improved from yesterday DS: Data Data Completed and Pending Labs on day of discharge: Labs from last 24 hours 12/20/22 12/20/22 06:01 06:01 WBC 4.7 RBC 3.47 L Hgb 11.2 L Hct 35.2 L MCV 101.4 H MCH 32.3 MCHC 31.8 L RDW 13.7 Plt Count 153 MPV 9.7 Immature Gran % (Auto) 0.2 Neut % (Auto) 66.8 Lymph % (Auto) 14.4 L [place] % (Auto) 11.0 H Eos % (Auto) 7.2 H Baso % (Auto) 0.4 Lymph # (Auto) 0.68 L [place] # (Auto) 0.5 Eos # (Auto) 0.3 Baso # (Auto) 0.0 Abs Immat Gran (auto) 0.01 Absolute Neuts (auto) 3.1 Absolute Nucleated RBC 0.0 Nucleated RBC % 0.0 Sodium 138 [place]
== END 2022-12-20 18:40 | disposition home or self-care (01) ==
LOC: ANHED 22:25 → ANH2MED 12-19 02:08
PROVIDERS: Internal Medicine Critical Care Medicine; Admitting Provider Internal Medicine; Emergency Provider Emergency Medicine; PCP Family Medicine Adolescent Medicine; Visit Provider Internal Medicine
DX: N35.912 Unspecified bulbous urethral stricture, male (principal); R33.9 Retention of urine, unspecified; R31.9 Hematuria, unspecified; Z85.46 Personal history of malignant neoplasm of prostate; I25.10 Atherosclerotic heart disease of native coronary artery without angina pectoris; Z95.1 Presence of aortocoronary bypass graft; G20 Parkinson's disease; I10 Essential (primary) hypertension; R60.9 Edema, unspecified; Z87.891 Personal history of nicotine dependence; Z20.822 Contact with and (suspected) exposure to COVID-19
CPT/HCPCS: 52281; 36415; 80053; 81001; 83735; 83880; 84100; 85025; 87086; 87088; 87493; 87637; 93970; 96365; 96366; 96367; 96372; 96375; 99285; A9270; C1769; C8929; G0378; J0696; J0744; J1650; J7030; Q9957

== ENCOUNTER 2023-06-03 07:48 | Outpatient (CLI) | payer MEDICARE, SELFPAY ==
--- NOTE | 2023-06-03 08:00 | ECG_ITS ---
Measurements Intervals [place] Rate: 69 P: -17 HI: 182 QRS: -18 QRSD: 90 T: 99 QT: 378 QTc: 408 Interpretive Statements SINUS RHYTHM DELAYED PRECORDIAL R/S TRANSITION BORDERLINE ST-T WAVE ABNORMALITY- HIGH LATERAL LEADS BASELINE ARTIFACT- I, II, III, AVR, AVL, AVF, V2-V3 BORDERLINE ECG COMPARED TO ECG 04/09/2020 14:40:39 NO SIGNIFICANT CHANGES Electronically Signed On 06-03-2023 8:41:53 CDT by Jay Jonas D.O.
== END 2023-06-03 07:49 | disposition home or self-care (01) ==
LOC: ANHSURGERY 07:56
PROVIDERS: PCP Family Medicine Adolescent Medicine; Visit Provider Urology
DX: I10 Essential (primary) hypertension (principal); Z01.818 Encounter for other preprocedural examination; R94.31 Abnormal electrocardiogram [ECG] [EKG]
CPT/HCPCS: 93005

== ENCOUNTER 2023-06-09 01:42 | Day surgery (SDC) | payer MEDICARE, SELFPAY ==
[2023-05-27 15:07] VITALS: BMI 31.0
--- NOTE | 2023-05-27 15:23 | PC.NURSE ---
PRE-OP INSTRUCTIONS, PLEASE READ CAREFULLY Report to the Outpatient Waiting Room, entrance under the green pavilion located off [facility], at time _1000_ on date _06/09/23_. Planned Procedure Time: _1200_. Time changes happen often and if your time is changed the preop area will call you the afternoon before. - You and your visitor will be asked to self-screen and do not enter if you have any COVID symptoms. - A mask is optional within the hospital at this time. Patients may have clear liquids (water, carbonated beverages, clear teas, apple juice) until 3 hours prior to surgery (0900 AM) with a maximum of 20 ounces. - No food from midnight until time of surgery Take the following medications with a SIP of water the morning of surgery: _CARBIDOPA-LEVODOPA, PROPRANOLOL_ DO NOT STOP ANY OF YOUR OTHER PRESCRIPTION MEDICATIONS PRIOR TO SURGERY ?EXCEPT THE FOLLOWING Medications to discontinue - _ASPIRIN & FISH OIL PER DR. DUBOSE'S INSTRUCTIONS_ Date to take last dose Please no make-up, nail [place], hairspray, perfume, deodorant, or body powder the day of surgery. No jewelry (including any body piercings) or valuables the day of surgery, leave them at home. Please take a shower or bath the night before, or the morning of, surgery with an antibacterial soap. Wear comfortable, loose fitting clothing. - Jewelry must be removed prior to entering the operating room. Rings and piercings that are not removed may be cut off. - The hospital will not accept responsibility for valuables. - Please leave all valuables, including medications, at home the day of surgery. If you are going home after surgery, a licensed fork truck driver must drive you home. - NO public transportation without another adult if you receive anesthesia. - We recommend that an adult stay with you for 24 hours following discharge. - We also recommend that you do not drive, make important decision, drink alcoholic beverages, or take any drugs that were not prescribed by your health care provider for at least 24 hours after your discharge time. Follow any additional instructions given to you from your surgeon. If you or anyone in your household have experienced Covid symptoms in the past week, please notify your surgeon or the nurse liaison at the phone number below for possible testing. Telephone instructions given to _PATIENT_and asked if any additional questions and then verbalized understanding. Patient advised to call surgeon office or pre surgery nurse liaison [phone] if any additional questions.
[2023-06-09] VITALS (7 sets, daily range): BP systolic 109–125; BP diastolic 68–85; PULSE 47–62; RESP 12–20; TEMP 36.1–36.3; O2SAT 100
--- NOTE | ~2023-06-09 | XR_ITS ---
XR urethrocystogram 06/09/2023 12:58 Indication: Retrograde urethrogram. Urethral dilation. Procedure: 3 fluoroscopic images from retrograde urethrogram are submitted. 19 seconds of fluoroscopy . Comparison: No prior studies for comparison. Findings: There is normal contrast opacification of the urethra. No focal strictures or intraluminal filling defects are identified. Please refer to procedural report for details. Impression: 1: Unremarkable retrograde urethrogram. Please refer to procedural report for details. Reviewed, dictated and finalized at location A. Impression: 1: Unremarkable retrograde urethrogram. Please refer to procedural report for d etails.
--- NOTE | 2023-06-09 07:51 | WPDANESEPPF ---
Anes - Initial Pre Proc Eval Procedure: Operation Date: 06/09/23 12:00 Proposed Procedures p Cystoscopy, Retrograde Pyelography, Urethral Dilatation - Rodolfo Anaya MD Date/Time: 06/09/23 07:51 Surgeon: Rodolfo Anaya MD Pre Op Diagnosis: uretheral stricture Patient Data Age: 73 Gender: M Height: 1.75 m Weight: 95.45 kg Allergies Allergy/AdvReac Type Severity Reaction Status Date / Time No Known Allergies Allergy Verified 06/09/23 10:09 Home Medications Medication Instructions Recorded Confirmed Type Aspir-81 1 tablet PO DAILY 04/09/20 05/27/23 History carbidopa 25 mg-levodopa 100 mg 3 tablet PO TID 04/09/20 05/27/23 History tablet losartan 100 mg tablet 100 mg PO DAILY 04/09/20 05/27/23 History propranolol 60 mg tablet 60 mg PO DAILY 04/09/20 05/27/23 History rosuvastatin 40 mg tablet 40 mg PO DAILY 04/09/20 05/27/23 History omega-3 fatty acids-fish oil 360 1 cap PO DAILY 10/23/22 05/27/23 History mg-1,200 mg capsule (Fish Oil) tamsulosin 0.4 mg capsule 0.4 mg PO DAILY 10/23/22 05/27/23 History mirtazapine 7.5 mg tablet 3.75 mg PO HS 12/19/22 05/27/23 History mirabegron 25 mg tablet,extended 25 mg PO DAILY 05/27/23 05/27/23 History release 24 hr (Myrbetriq) Patient hx anesthesia problems: none Family hx anesthesia problems: none Results Review: All pre-operative results and documents have been reviewed as part of the pre-operative evaluation. [facility] Past Medical History Medical History (Updated 06/09/23 @ 07:52 by Nando Torres DO) Anxiety CAD (coronary artery disease) Malignant neoplasm of prostate (2020) 2020 Mitral valve disease Parkinson's disease 12/04 PVD (peripheral vascular disease) Surgical History Surgical History H/O mitral valve repair (2016) History of coronary artery stent placement (2004) S/P CABG x 2 (2017) Family History Family History Father Heart disease Mother Heart disease Social History Social History Smoking packs per day: 1.5 Smoking cigarettes per day: 30.0 Years smoked: 31 Smoking pack-years: 46.50 Smoking status: Former smoker Tobacco type: cigarettes Second hand tobacco smoke exposure: No Smoking end date: 11/16/92 Alcohol intake: never Substance use: never Substance use type: does not use Lack of Transportation: No Lack of Food: Never True Current Housing: I Have Housing Concerned About Future Housing: No Difficulty Paying Gas/Electric Bills: No Difficulty Paying for Meds: No Currently Unemployed: No Education: Trade/Vocational Certificate Difficulty w/ Childcare or Family Care: No Living arrangements: with family Spiritual care concerns: No Anes - Eval Final PreProcedure Day of Procedure 06/09/23 07:51 Patient weight: obese Heart: regular rate and rhythm Lungs: clear to auscultation Airway: Mallampati scale class II Neurological: alert and oriented Last oral intake: >/= 8 hours ASA classification: IV Emergent: no Anesthetic plan: proceed Anesthesia type and monitoring: general LMA and standard monitoring Results Review: All pre-operative results and documents have been reviewed as part of the pre-operative evaluation. Informed Consent: The patient's anesthetic plan and its attendant risks and benefits were discussed with the patient/family/POA. Questions were solicited and answers provided to the satisfaction of the patient/family/POA.
--- NOTE | 2023-06-09 10:38 | SUR.PREOP ---
Patient unable to void for urine specimen. Notified Dr Anaya who cancelled specimen.
[2023-06-09] MEDS: LACTATED RINGERS 1,000 ML 30 ML IV CONT (10:43)
--- NOTE | 2023-06-09 12:14 | WPDHPUPDATE1 ---
History and Physical Update Update Date/Time: 06/09/23 12:14 History and Physical has been reviewed, including an updated exam of the patient. There are NO changes in the patient's condition. Risks, benefits, and alternatives have been discussed and questions answered. Patient agrees to proceed with procedure. Proceed with cystoscopy, retrograde urethrogram, urethral dilation
[2023-06-09] MEDS: ceFAZolin 2 GM/D5W 50 ML 2 GM/50 ML BAG IVPB (12:27)
[2023-06-09] MEDS: LIDOCAINE HCL 2% GEL UROJET 10 ML PKG MUCOUS MEM (12:50)
--- NOTE | 2023-06-09 12:56 | P.OP_ITS ---
Procedure Note - Detailed Date of Procedure 06/09/23 Pre-op Diagnosis uretheral stricture Post-op Diagnosis Same Procedure Performed Retrograde urethrogram, cystoscopy, urethral dilation with amplantz dilators 24 fr., complex Chou catheter placement 20 [place] tip Surgeon Rodolfo Anaya MD Anesthesia General Description of Procedure Patient is taken to the operative suite correctly identified. Once anesthesia was obtained was placed in dorsal lithotomy position and prepped draped usual sterile fashion. Sixteen [place] red rubber catheters inserted into the urethra and a retrograde urethrogram was performed. He has a tight bulbar stricture. I could not get any contrast go into the bladder. I then used a Glidewire was able to manipulated through a small tiny opening and under fluoroscopy confirmed placement into the bladder. And plans dilators were placed and a superstiff wire was then passed into the bladder. The urethral stricture was dilated up to 24 [place]. Reinspection now cystoscopy revealed no other strictures. Prostate has some lateral lobe hypertrophy. The bladder itself has no evidence of bladder tumors at this time. 2% viscous lidocaine was inserted into the urethra. Twenty [place] tip catheter was then passed over the guidewire into the bladder. 10 cc was placed in the balloon. Patient is taken recovery stable condition. Will plan on removing the catheter on Thursday. This completes to take a degroot on this patient. Please send a copy of this op note to my office. Estimated Blood Loss 0 Drains Yes Packing No Pathology None sent Complications No immediate complications Condition Stable Disposition PACU
[2023-06-09] MEDS: oxyCODONE HCL (*CRX) 5 MG TAB IR PO (14:08)
== END 2023-06-09 14:32 | disposition home or self-care (01) ==
PROVIDERS: PCP Family Medicine Adolescent Medicine; Visit Provider Urology
PROC: 0T7D8ZZ Dilation of Urethra, Via Natural or Artificial Opening Endoscopic (ICD-10-PCS; CPT 52281; principal; 2023-06-09 12:00)
DX: N35.912 Unspecified bulbous urethral stricture, male (principal); I25.10 Atherosclerotic heart disease of native coronary artery without angina pectoris; G20 Parkinson's disease; I73.9 Peripheral vascular disease, unspecified; F41.9 Anxiety disorder, unspecified; Z95.5 Presence of coronary angioplasty implant and graft; Z95.1 Presence of aortocoronary bypass graft; Z85.46 Personal history of malignant neoplasm of prostate; Z87.891 Personal history of nicotine dependence; E66.9 Obesity, unspecified; Z68.29 Body mass index [BMI] 29.0-29.9, adult; Z79.82 Long term (current) use of aspirin
CPT/HCPCS: 52281; 51610; 74450; A9270; C1726; C1769; J0690; J1100; J2405; J2704; J3010; J7120; Q9966

== ENCOUNTER 2025-01-16 12:17 | Emergency (ER) | payer MEDICARE, SELFPAY ==
[2025-01-16] VITALS (7 sets, daily range): BP systolic 120–154; BP diastolic 74–92; PULSE 61–85; RESP 15–20; TEMP 36.4–36.8; O2SAT 97–100
[2025-01-16 14:54] LABS: Basophils Percent Auto 0.2 % (0.2-1.2); Eosinophils Percent Auto 0.4 % (0-4.4); Hematocrit 45.7 % (42.0-52.0); Hemoglobin 14.9 g/dL (14.0-18.0); Immature Granulocyte Absolute 0.03 K/mm3 (0.00-0.031); Immature Granulocyte Percent A 0.3 % (0-0.5); Lymphocytes Absolute Auto 0.79 K/mm3 (0.9-3.2); Lymphocytes Percent Auto 7.3 % (18.3-44.2); Mean Corpuscular HGB Conc 32.6 g/dl (32-36); Mean Corpuscular Volume 101.1 fl (80-100); Monocytes Absolute Auto 0.6 K/mm3 (0.1-0.6); Monocytes Percent Auto 5.7 % (2.6-8.5); Neutrophils Absolute Auto 9.3 K/mm3 (1.3-6.7); Neutrophils Percent Auto 86.1 % (45.5-73.1); Platelet Count Result 190 k/mm3 (150-375); Red Blood Count 4.52 M/mm3 (4.6-6.20); Red Cell Distribution Width 13.2 % (11.5-14.5); White Blood Count 10.8 K/mm3 (4.5-10.0)
--- NOTE | 2025-01-16 14:54 | ED.ABDPAIN ---
HPI - Abdominal Pain General Chief Complaint: Abdominal Pain <Abigail Greer APRN - Last Filed: 01/16/25 14:57> Stated Complaint: abd pain <Abigail Greer APRN - Last Filed: 01/16/25 14:57> Time Seen by Provider: 01/16/25 16:00 <Abigail Greer APRN - Last Filed: 01/16/25 14:57> Focused HPI: Patient is a 74-year-old male who presents to the with abdominal pain that radiates to his right flank. He reports it started approximately 9:00 a.m. this morning. Patient reports he had a bowel movement this morning at 7:00 a.m. and it was normal for him. Patient or cyst history of high blood pressure, Parkinson's, and Agent [place] exposure. He denies any history of COPD or diabetes. Patient reports the abdominal pain comes and goes. GENERAL: Well-appearing, well-nourished, and in mild distress d/t abdominal pain. HEAD: Normocephalic, atraumatic. CHEST: Clear to auscultation. ?No respiratory distress. HEART: Regular rate and rhythm.? NEURO: ?Alert and oriented x3. Patient screened in triage and initial orders placed.? ?Additional care and disposition to be based upon?diagnostic testing and treatment. <Abigail Greer APRN - Last Filed: 01/16/25 14:57> History of Present Illness HPI narrative: 74 YEARS OLD WHITE MALE CAME TO THE ED WITH HIS BY PRIVATE CAR COMPLAINING OF SUDDEN ONSET OF LOWER ABDOMINAL PAIN STARTED 9:00 A.M. TODAY, SHARP, STABBING, FEELING LIKE HIS ABDOMEN IS SWOLLEN AND TIGHT. SYMPTOMS ARE IMPROVING ON ARRIVAL TO THE ED. PATIENT DENIES ANY FEVER, CHILLS, NAUSEA, VOMITING, DIARRHEA, CONSTIPATION. PATIENT WAS ABLE TO URINATE AND DEFECATE PRIOR TO ARRIVAL WITHOUT ANY SIGNIFICANT EFFECT ON THE PAIN. HISTORY OF HYPERTENSION HYPERLIPIDEMIA MITRAL VALVE REPAIR [place], CURRENTLY ON BABY ASPIRIN ONCE A DAY. PATIENT DOES NOT SMOKE OR DRINK OR USE DRUGS <Garret Torres MD - Last Filed: 01/16/25 18:57> Related Data Home Medications: Home Medications ?Medication ?Instructions ?Recorded ?Confirmed ?Last Taken ?Type Aspir-81 1 tablet PO DAILY 04/09/20 06/18/23 Unknown History carbidopa 25 mg-levodopa 100 mg 3 tablet PO TID 04/09/20 06/18/23 Unknown History tablet losartan 100 mg tablet 100 mg PO DAILY 04/09/20 06/18/23 Unknown History propranolol 60 mg tablet 60 mg PO DAILY 04/09/20 06/18/23 Unknown History rosuvastatin 40 mg tablet 40 mg PO DAILY 04/09/20 06/18/23 Unknown History omega-3 fatty acids-fish oil 360 1 cap PO DAILY 10/23/22 06/18/23 Unknown History mg-1,200 mg capsule (Fish Oil) tamsulosin 0.4 mg capsule 0.4 mg PO DAILY 10/23/22 06/18/23 Unknown History mirtazapine 7.5 mg tablet 3.75 mg PO HS 12/19/22 06/18/23 Unknown History mirabegron 25 mg tablet,extended 25 mg PO DAILY 05/27/23 06/18/23 Unknown History release 24 hr (Myrbetriq) <Abigail Greer APRN - Last Filed: 01/16/25 14:57> Allergies/Adverse Reactions: Allergies Allergy/AdvReac Type Severity Reaction Status Date / Time No Known Allergies Allergy Verified 06/18/23 09:42 <Abigail Greer APRN - Last Filed: 01/16/25 14:57> Review of Systems Review of Systems: All systems reviewed & are unremarkable except as noted in HPI and below <Garret Torres MD - Last Filed: 01/16/25 18:57> [facility] Past Medical History Medical History: Medical History Anxiety PVD (peripheral vascular disease) Malignant neoplasm of prostate (2020) 2020 Parkinson's disease 12/04 CAD (coronary artery disease) Mitral valve disease <Abigail Greer APRN - Last Filed: 01/16/25 14:57> Surgical History Surgical History: Surgical History History of coronary artery stent placement (2004) H/O mitral valve repair (2016) S/P CABG x 2 (2016) <Abigail Greer APRN - Last Filed: 01/16/25 14:57> Family History Family History: Family History Father Heart disease Mother Heart disease <Abigail Greer APRN - Last Filed: 01/16/25 14:57> Social History Social History: Social History Smoking packs per day: 1.5 Smoking cigarettes per day: 30.0 Years smoked: 31 Smoking pack-years: 46.50 Smoking status: Former smoker Tobacco type: cigarettes Second hand tobacco smoke exposure: No Smoking end date: 11/16/92 Alcohol intake: never Substance use: never Substance use type: does not use Lack of Transportation: No Lack of Food: Never True Current Housing: I Have Housing Concerned About Future Housing: No Difficulty Paying Gas/Electric Bills: No Difficulty Paying for Meds: No Currently Unemployed: No Education: Trade/Vocational Certificate Difficulty w/ Childcare or Family Care: No Living arrangements: with family Spiritual care concerns: No <Abigail Greer PROFESSOR OF COMMUNICATION ARTS - Last Filed: 01/16/25 14:57> Exam Narrative: GENERAL APPEARANCE: WELL-DEVELOPED, WELL-NOURISHED SKIN: NORMAL COLOR HEAD: NORMOCEPHALIC, NONTRAUMATIC EYES: CLEAR CONJUNCTIVA ENT: OROPHARYNX NORMAL, EARS NORMAL, NOSE NORMAL NECK: SUPPLE, NONTENDER CHEST AND RESPIRATORY: AIRWAY PATENT, NO RESPIRATORY DISTRESS, NO ACCESSORY MUSCLE USE HEART: REGULAR RATE/RHYTHM ABDOMEN: SOFT, SLIGHT DIFFUSE TENDERNESS ACROSS THE LOWER ABDOMEN, NO BRUISES, NO SWELLING, NO RASH, NO GUARDING OR REBOUND, NO ORGANOMEGALY, QUIET BOWEL SOUNDS VASCULAR: NORMAL PERIPHERAL PULSES, NORMAL CAPILLARY REFILL. MUSCULOSKELETAL: NORMAL RANGE OF MOTION, NONTENDER BACK NEUROLOGIC: ALERT AND ORIENTED ?3, COURT ABSTRACTOR IS NORMAL TESTED, NO GROSS MOTOR DEFICIT <Garret Torres MD - Last Filed: 01/16/25 18:57> Course Vital Signs Vital signs: Vital Signs Temperature 36.6 C 01/16/25 12:35 Pulse Rate 61 01/16/25 12:35 Respiratory Rate 15 01/16/25 12:35 Blood Pressure 120/74 01/16/25 12:35 Pulse Oximetry 99 01/16/25 12:35 Temperature 36.5 C 01/16/25 16:59 Pulse Rate 85 01/16/25 18:00 Respiratory Rate 20 01/16/25 18:00 Blood Pressure 153/86 H 01/16/25 18:00 Pulse Oximetry 97 01/16/25 18:00 Oxygen Delivery Room Air 01/16/25 16:46 <Abigail Greer APRN - Last Filed: 01/16/25 14:57> Vital Signs Temperature 36.6 C 01/16/25 12:35 Pulse Rate 61 01/16/25 12:35 Respiratory Rate 15 01/16/25 12:35 Blood Pressure 120/74 01/16/25 12:35 Pulse Oximetry 99 01/16/25 12:35 Temperature 36.5 C 01/16/25 16:59 Pulse Rate 85 01/16/25 18:00 Respiratory Rate 20 01/16/25 18:00 Blood Pressure 153/86 H 01/16/25 18:00 Pulse Oximetry 97 01/16/25 18:00 Oxygen Delivery Room Air 01/16/25 16:46 <Garret Torres MD - Last Filed: 01/16/25 18:57> MDM - Abdominal Pain MDM Narrative Medical decision making narrative: PATIENT PRESENTS WITH LOWER ABDOMINAL PAIN VITAL SIGNS ARE STABLE PHYSICAL EXAMINATION CONSISTENT WITH SLIGHT TENDERNESS ACROSS THE LOWER ABDOMEN DIFFERENTIAL DIAGNOSIS INCLUDE DIVERTICULITIS, APPENDICITIS, COLITIS, DIVERTICULITIS, URINARY TRACT INFECTION, CONSTIPATION, INTRA-ABDOMINAL MALIGNANCY. BLOOD WORK TODAY WITH CBC, CMP, LIPASE SHOWED WBC OF 10.8 URINALYSIS SHOWED 2+ PROTEIN, 2+ KETONE, 3+ BLOOD 3+ LEUKOCYTE ESTRACE, WBC MORE THAN 100 CT ABDOMEN AND PELVIS WITH IV CONTRAST SHOWED Right-sided hydroureteronephrosis without an obstructing calculus identified. 8 mm nonobstructing stone within the lower pole of the right kidney. Asymmetric perinephric fat stranding on the right, possibly sequelae of a recently passed stone. Hiatal hernia with eccentric wall thickening for which direct visualization is recommended (nonemergently). PATIENT RECEIVED 1 G OF ROCEPHIN IV PRIOR TO DISCHARGE, DISCHARGED ON CIPRO 500 B.I.D. FOR 10 DAYS <Garret Torres MD - Last Filed: 01/16/25 18:57> Differential Diagnosis Differential diagnosis: Likely other ( ABOVE) <Garret Torres MD - Last Filed: 01/16/25 18:57> Medical Records Attestation: I reviewed the patient's medical records. <Garret Torres MD - Last Filed: 01/16/25 18:57> Lab Data Attestation: I reviewed the patient's lab results. <Garret Torres MD - Last Filed: 01/16/25 18:57> Result diagrams: 01/16/25 14:33 01/16/25 14:33 <Abigail Greer APRN - Last Filed: 01/16/25 14:57> Labs: Lab Results 01/16/25 01/16/25 Range/Units 14:33 16:22 WBC 10.8 H (4.5-10.0) K/mm3 RBC 4.52 L (4.6-6.20) M/mm3 Hgb 14.9 D (14.0-18.0) g/dL Hct 45.7 (42.0-52.0) % MCV 101.1 H (80-100) fl MCH 33.0 (26-34) pg MCHC 32.6 (32-36) g/dl RDW 13.2 (11.5-14.5) % Plt Count 190 (150-375) k/mm3 MPV 10.0 (7.4-10.4) fl Immature Gran % (Auto) 0.3 (0-0.5) % Neut % (Auto) 86.1 H (45.5-73.1) % Lymph % (Auto) 7.3 L (18.3-44.2) % Brule % (Auto) 5.7 (2.6-8.5) % Eos % (Auto) 0.4 (0-4.4) % Baso % (Auto) 0.2 (0.2-1.2) % Lymph # (Auto) 0.79 L (0.9-3.2) K/mm3 Brule # (Auto) 0.6 (0.1-0.6) K/mm3 Eos # (Auto) 0.0 (0-0.3) K/mm3 Baso # (Auto) 0.0 (0.0-0.1) K/mm3 Abs Immat Gran (auto) 0.03 (0.00-0.031) K/mm3 Absolute Neuts (auto) 9.3 H (1.3-6.7) K/mm3 Absolute Nucleated RBC 0.000 (0.0-0.012) K/mm3 Nucleated RBC % 0.0 (0.0-0.2) % Sodium 142 (137-145) mmol/L Potassium 4.7 (3.4-5.0) mmol/L Chloride 107 (98-107) mmol/L Carbon Dioxide 22 (22-30) mmol/L Anion Gap 13 H (4-12) mmol/L BUN 19 (9-20) mg/dL Creatinine 0.81 (0.7-1.3) mg/dL Estim Creat Clear Calc 80 ml/min Estimated GFR > 60 (59 - ) Glucose 98 (65-110) mg/dL Calcium 9.3 (8.4-10.2) mg/dL Total Bilirubin 1.3 (0.2-1.3) mg/dL AST 32 (17-59) U/L ALT 19 (6-50) U/L Alkaline Phosphatase 79 (38-126) U/L Total Protein 8.0 (6.3-8.2) g/dL Albumin 4.2 (3.5-5.1) g/dL Lipase 41 (23-300) U/L Urine Color Yellow (Yellow) Urine Appearance Cloudy H (Clear) Urine pH 5.0 (5.0-9.0) Ur Specific [place] 1.015 (1.001-1.035) Urine Protein 2+ H (Negative) mg/dL Urine Glucose (UA) Negative (Negative) mg/dL Urine Ketones 2+ H (Negative) mg/dL Ur Blood (Man) 3+ H (Negative) Urine Nitrate Negative (Negative) Urine Bilirubin Negative (Negative) Urine Urobilinogen 0.2 (<2.0) mg/dL Leukocyte Esterase Rfl 3+ H (Negative) ANALISA/UL Urine RBC 21-50 H (0-2) /hpf Urine WBC >100 H (0-3) /hpf Ur Squamous Epith Cells None seen (Few) /hpf Urine Bacteria 1+ H /hpf Urine Casts 0-2 <Abigail Greer, PROFESSOR OF COMMUNICATION ARTS - Last Filed: 01/16/25 14:57> Lab Results 03/03/25 03/03/25 Range/Units 14:33 16:22 WBC 10.8 H (4.5-10.0) K/mm3 RBC 4.52 L (4.6-6.20) M/mm3 Hgb 14.9 D (14.0-18.0) g/dL Hct 45.7 (42.0-52.0) % MCV 101.1 H (80-100) fl MCH 33.0 (26-34) pg MCHC 32.6 (32-36) g/dl RDW 13.2 (11.5-14.5) % Plt Count 190 (150-375) k/mm3 MPV 10.0 (7.4-10.4) fl Immature Gran % (Auto) 0.3 (0-0.5) % Neut % (Auto) 86.1 H (45.5-73.1) % Lymph % (Auto) 7.3 L (18.3-44.2) % Brule % (Auto) 5.7 (2.6-8.5) % Eos % (Auto) 0.4 (0-4.4) % Baso % (Auto) 0.2 (0.2-1.2) % Lymph # (Auto) 0.79 L (0.9-3.2) K/mm3 Brule # (Auto) 0.6 (0.1-0.6) K/mm3 Eos # (Auto) 0.0 (0-0.3) K/mm3 Baso # (Auto) 0.0 (0.0-0.1) K/mm3 Abs Immat Gran (auto) 0.03 (0.00-0.031) K/mm3 Absolute Neuts (auto) 9.3 H (1.3-6.7) K/mm3 Absolute Nucleated RBC 0.000 (0.0-0.012) K/mm3 Nucleated RBC % 0.0 (0.0-0.2) % Sodium 142 (137-145) mmol/L Potassium 4.7 (3.4-5.0) mmol/L Chloride 107 (98-107) mmol/L Carbon Dioxide 22 (22-30) mmol/L Anion Gap 13 H (4-12) mmol/L BUN 19 (9-20) mg/dL Creatinine 0.81 (0.7-1.3) mg/dL Estim Creat Clear Calc 80 ml/min Estimated GFR > 60 (59 - ) Glucose 98 (65-110) mg/dL Calcium 9.3 (8.4-10.2) mg/dL Total Bilirubin 1.3 (0.2-1.3) mg/dL AST 32 (17-59) U/L ALT 19 (6-50) U/L Alkaline Phosphatase 79 (38-126) U/L Total Protein 8.0 (6.3-8.2) g/dL Albumin 4.2 (3.5-5.1) g/dL Lipase 41 (23-300) U/L Urine Color Yellow (Yellow) Urine Appearance Cloudy H (Clear) Urine pH 5.0 (5.0-9.0) Ur Specific [place] 1.015 (1.001-1.035) Urine Protein 2+ H (Negative) mg/dL Urine Glucose (UA) Negative (Negative) mg/dL Urine Ketones 2+ H (Negative) mg/dL Ur Blood (Man) 3+ H (Negative) Urine Nitrate Negative (Negative) Urine Bilirubin Negative (Negative) Urine Urobilinogen 0.2 (<2.0) mg/dL Leukocyte Esterase Rfl 3+ H (Negative) ANALISA/UL Urine RBC 21-50 H (0-2) /hpf Urine WBC >100 H (0-3) /hpf Ur Squamous Epith Cells None seen (Few) /hpf Urine Bacteria 1+ H /hpf Urine Casts 0-2 <Garret Torres MD - Last Filed: 01/16/25 18:57> Imaging Data Radiologist's impression: ITS Impressions Abdomen/Pelvis CT 01/16/25 17:24 IMPRESSION: Right-sided hydroureteronephrosis without an obstructing calculus identified. 8 mm nonobstructing stone within the lower pole of the right kidney. Asymmetric perinephric fat stranding on the right, possibly sequelae of a recently passed stone. Hiatal hernia with eccentric wall thickening for which direct visualization is recommended (nonemergently). <Abigail Greer APRN - Last Filed: 01/16/25 14:57> ITS Impressions Abdomen/Pelvis CT 01/16/25 17:24 IMPRESSION: Right-sided hydroureteronephrosis without an obstructing calculus identified. 8 mm nonobstructing stone within the lower pole of the right kidney. Asymmetric perinephric fat stranding on the right, possibly sequelae of a recently passed stone. Hiatal hernia with eccentric wall thickening for which direct visualization is recommended (nonemergently). <Garret Torres MD - Last Filed: 01/16/25 18:57> Critical Care Time Critical Care Time Critical Care Time: No <Garret Torres MD - Last Filed: 01/16/25 18:57> Discharge Plan Discharge Clinical Impression: Urinary tract infection, Kidney stone <Abigail Greer APRN - Last Filed: 01/16/25 14:57> Patient Disposition: Home, Self-Care <Abigail Greer APRN - Last Filed: 01/16/25 14:57> Condition: Stable <Abigail Greer APRN - Last Filed: 01/16/25 14:57> Instructions: Antibiotic Form, Kidney Stones (ED), Urinary Tract Infection in Men (ED) <Abigail Greer APRN - Last Filed: 01/16/25 14:57> Additional Instructions: RETURN IF SYMPTOMS ARE WORSENING , CALL YOUR UROLOGIST FOR APPOINTMENT, TAKE TYLENOL, IBUPROFEN NEEDED FOR ACHES AND PAIN, CONTINUE HOME MEDICATIONS. <Abigail Greer APRN - Last Filed: 01/16/25 14:57> Patient Language: Wolof <Abigail Greer APRN - Last Filed: 01/16/25 14:57> Prescriptions: New ciprofloxacin HCl [Cipro] 500 mg tablet 500 mg PO Q12H Qty: 10 0RF No Action tamsulosin 0.4 mg capsule 0.4 mg PO DAILY omega-3 fatty acids-fish oil [Fish Oil] 360-1,200 mg capsule 1 cap PO DAILY Aspir-81 1 tablet PO DAILY propranolol 60 mg tablet 60 mg PO DAILY carbidopa-levodopa 25-100 mg tablet 3 tablet PO TID losartan 100 mg tablet 100 mg PO DAILY rosuvastatin 40 mg tablet 40 mg PO DAILY mirtazapine 7.5 mg tablet 3.75 mg PO HS Myrbetriq 25 mg Tablet Extended Release 24 Hr 25 mg PO DAILY <Abigail Greer APRN - Last Filed: 01/16/25 14:57> Follow-up/Referrals: Will Mac MD [Primary Care Provider] - <Abigail Greer, PROFESSOR OF COMMUNICATION ARTS - Last Filed: 01/16/25 14:57>
[2025-01-16 15:05] LABS: Alanine Aminotransferase 19 U/L (6-50); Albumin Level 4.2 g/dL (3.5-5.1); Alkaline Phosphatase 79 U/L (38-126); Anion Gap 13 mmol/L (4-12); Aspartate Amino Transferase 32 U/L (17-59); Bilirubin,Total 1.3 mg/dL (0.2-1.3); Blood Urea Nitrogen 19 mg/dL (9-20); Calcium 9.3 mg/dL (8.4-10.2); Carbon Dioxide 22 mmol/L (22-30); Chloride 107 mmol/L (98-107); Estimated CRCL calculation 80 ml/min; Estimated Glomerular Filt Rate > 60; Glucose 98 mg/dL (65-110); Lipase 41 U/L (23-300); Potassium 4.7 mmol/L (3.4-5.0); Sodium 142 mmol/L (137-145)
[2025-01-16 16:31] LABS: Add Urine Microscopic? YES; Appearance Urine Cloudy (Clear); Bacteria Urine 1+ /hpf; Bilirubin Urine Negative (Negative); Blood Urine 3+ (Negative); Color Urine Yellow (Yellow); Glucose Urine UA Negative (Negative); Ketones Urine 2+ mg/dL (Negative); Leukocyte Esterase Ur 3+ LEU/UL (Negative); Nitrate Urine Negative (Negative); Non Pathogenic Casts 0-2; Protein Urine 2+ mg/dL (Negative); RBC Urine 21-50 /hpf (0-2); Specific Grav Ur 1.015 (1.001-1.035); Squamous Epithelial Cell Urine None Seen /hpf (Few); Urobilinogen Urine 0.2 mg/dL (<2.0); WBC Urine >100 /hpf (0-3)
[2025-01-16] MEDS: SODIUM CHLORIDE 0.9% IV 1,000 ML 999 ML IV CONT (16:56)
[2025-01-16] MEDS: ONDANSETRON INJ 4 MG/2 ML VIAL IV PUSH (16:57)
[2025-01-16] MEDS: HYDROmorphone HCL INJ (*CRX) 1 MG/ML SYR 0.5 MG IV PUSH (16:58)
== END 2025-01-16 19:39 | disposition home or self-care (01) ==
PROVIDERS: Registered Nurse; Emergency Provider Emergency Medicine; PCP Family Medicine Adolescent Medicine
DX: N39.0 Urinary tract infection, site not specified (principal); N20.0 Calculus of kidney; G20.A1 Parkinson's disease without dyskinesia, without mention of fluctuations; I10 Essential (primary) hypertension; I73.9 Peripheral vascular disease, unspecified; I25.10 Atherosclerotic heart disease of native coronary artery without angina pectoris; E78.5 Hyperlipidemia, unspecified; Z95.5 Presence of coronary angioplasty implant and graft; Z95.1 Presence of aortocoronary bypass graft; Z85.46 Personal history of malignant neoplasm of prostate; Z87.891 Personal history of nicotine dependence; Z79.82 Long term (current) use of aspirin; Z79.899 Other long term (current) drug therapy; K44.9 Diaphragmatic hernia without obstruction or gangrene; N13.30 Unspecified hydronephrosis
CPT/HCPCS: 36415; 74177; 80053; 81001; 83690; 85025; 87086; 87186; 96365; 96375; 99284; J0696; J1171; J2405; J7030; Q9967

== ENCOUNTER → 2025-02-13 10:27 | Outpatient (CLI) | payer MEDICARE, SELFPAY ==
--- NOTE | ~2025-02-13 | XR_ITS ---
XR hip RT min 2V 02/13/2025 10:55 Indication: Right hip pain Procedure: 3 views right hip Comparison: No prior studies for comparison. Findings: No fracture, subluxation or dislocation. There is mild osteoarthritis of the right hip. Ost eopenia. There is lower lumbar spondylosis. Impression: 1: Mild osteoarthritis of the right hip. Reviewed, dictated and finalized at location A. Impression: 1: Mild osteoarthritis of the right hip.
== END ==
LOC: EXPCRAD 10:30
PROVIDERS: PCP Family Medicine; Visit Provider Family Medicine
DX: M16.11 Unilateral primary osteoarthritis, right hip (principal)
CPT/HCPCS: 73502

== ENCOUNTER 2025-03-09 10:30 | Outpatient (CLI) | payer MEDICARE, SELFPAY ==
--- NOTE | ~2025-03-09 | XR_ITS ---
Supine and upright views of the abdomen Clinical history: Renal stone Findings: Bowel gas pattern is nonspecific. No evidence for obstruction or free air. No abnormal mass lesion or calcification is seen. Probable pelvic phleboliths. Osseous structures are intact. Impression: No significant abnormality is seen. Reviewed, dictated and finalized at [facility]. Impression: No significant abnormality is seen.
--- OUTSIDE RECORDS SUMMARY | 2025-03-09 11:56 | XMS_ITS | Referral Summary ---
Author Organization [facility] Address [address] [place] [address] Care Team Providers Care Global Cmo Name Role Phone Will Mac MD Primary Care Prov ider Kell Berkowitz MD Unavailable [phone] Jitendra Moses MD Unavailable [phone] Ivett Saenz MD Unavailable [phone] Allergies Active Allergy Reactions Criticality Noted Date Comments Lisinopril Cough Low 09/08/2018 Oxybutynin Chloride Delusions,Other (See comments) Medium 02/12/2023 Medications carbidopa-levodo pa (SINEMET) 25-100 mg per tabletIndication s:Parkinsonism Take 2 tablets by mouth 3 (three) times a day Active tamsulosin (FLOMAX) 0.4 mg extended release capsuleIndicatio ns:benign prostatic hyperplasia with lower urinary tract sx Take 1 capsule (0.4 mg total) by mouth daily Active aspirin 81 mg enteric coated tablet Take 1 tablet (81 mg total) by mouth daily Active cephalexin (KEFLEX) 500 mg capsule Take 1 capsule (500 mg total) by mouth 2 (two) times a day 6 capsule 09/16/2023 Active HYDROcodone-acet aminophen (NORCO) 5-325 mg per tabletIndication s:Pain Take 1 tablet by mouth every 6 (six) hours as needed for pain 10 tablet 09/16/2023 Active propranoloL (INDERAL) 60 mg tablet TAKE 1 TABLET(60 MG) BY MOUTH DAILY 90 tablet 3 10/02/2023 Active losartan (COZAAR) 100 mg tablet Take 1 tablet (100 mg total) by mouth daily 90 tablet 3 10/02/2023 Active rosuvastatin (CRESTOR) 40 mg tablet Take 1 tablet (40 mg total) by mouth daily 90 tablet 2 11/27/2023 Active busPIRone (BUSPAR) 10 mg tablet Take 0.5 tablets (5 mg total) by mouth 05/26/2024 Active ezetimibe (ZETIA) 10 mg tablet Take 1 tablet (10 mg total) by mouth daily Active vibegron 75 mg tablet Take 75 mg by mouth 05/18/2024 Active Active Problems Problem Noted Date Diagnosed Date Preoperative cardiovascular examination 09/09/20 Assessment & Plan (09/09/2023 10:06 AM CDT): Examination and EKG unremarkable. No symptoms suggestive of angina and it does appear that he can exceed 4 Mets of activity. I have advised him to proceed without any additional cardiac investigation. Impaired glucose tolerance 09/07/2023 Overactive bladder 09/07/2023 Vitamin D deficiency 09/07/2023 Post-traumatic bulbous urethral stricture 2022 Malignant neoplasm of prostate 09/03/2023 Insomnia due to medical condition 10/17/2022 Aneurysm of ascending aorta without rupture 08/16 Assessment & Plan (09/14/2024 9:45 AM CDT): Two years since his last assessment. Will obtain a CT angiogram. Assessment & Plan (09/09/2023 10:08 AM CDT): CT imaging performed a year ago demonstrated that this has been stable over the course of several years. May repeat CT imaging after next appointment. Assessment & Plan (08/27/2022 2:15 PM CDT): Identified on a chest CT from 5 years ago. Will repeat chest CT to determine if been any progression. Anxiety and depression 04/18/2022 PD (Parkinson's disease) 10/05/2019 Assessment & Plan (08/03/2023 10:01 AM CDT): 73 y.o. man with Parkinson's disease that reportedly began in 2016 at age 66 with intermittent rest and postural tremor in the left hand that spread to the left leg and then to the right hand, along with slowing of movements including walking, micrographia, and hypophonia. Examination today continues to show asymmetricl parkinsonism with significant asymmetric resting tremor. The history and examination provide evidence for idiopathic PD. - Motor symptoms: some improvement with levodopa 900mg/day, but no further improvement per patient with levodopa 1200mg/day. Exam today largely unchanged from previous visits. It is quite possible that his PD tremor is not responsive to levodopa, and this can occur in up to 50% of cases. We discussed the indications, risks, and benefits of DBS for medically-refractory PD tremor, and we will provide written information as well. - Orthostatic symptoms: Will continue to monitor. Unclear why he is on propranolol. Also on tamsulosin for LUTS. - Depression/anxiety; He remains on lower-dose mirtazapine . Did not tolerate escitalopram. Low-dose quetiapine made him feel very sedated. Would avoid neuroleptics in this patient with parkinsonism as much as possible. - Sleep: Not clear that he has insomnia (trouble falling asleep) as much as fragmented sleep with frequent awakenings and trouble falling back asleep. A great deal of his awakenings are precipitated by nocturia, and he has a complex urologic history. See above for medications used to target mood/sleep. Some degree of daytime fatigue may be related to poor/fragmented sleep. He could try melatonin. - Urinary symptoms: now status post radiation for prostate cancer, on tamsulosin and mirabegron. Will monitor for orthostatic symptoms. As a selective alpha breanna, tamsulosin has a much lower potential to reduce blood pressure compared to nonselective alpha-blockers. - Constipation: he will titrate Miralax, as needed. - Neuropathy: He may have some length-dependent sensory changes. Not a focus of the visit today. Normal TSH, B12, folate. Advised to supplement low-dose B12 by TONY Correa, which is completely safe and reasonable to try. However, I do not consider a B12 level of 403 to be low. Could check B12 and MMA if there is concern for functional B12 deficiency. I recommend the following: Continue carbidopa/levodopa 3 tabs 3x/day. Continue mirtazapine Can try melatonin for sleep Continue Miralax We discussed seeing me at [facility] for your Parkinson Disease care. He would like to set up an appointment with me there. He also expresses interest in following here with the excellent care provided by TONY Norris.. Will provide DBS packet Assessment & Plan (10/17/2022 5:36 PM FARE REGISTER REPAIRER): ASSESSMENT - 72 y.o. man with Parkinson's disease for 6 years that began in 2016 at age 66 with intermittent rest and posture tremor in the left hand that spread to the left leg and now to the right hand, along with slowing of movements including walking, micrographia, and hypophonia. - Motor symptoms: subjectively unchanged and with similar exam as previous visits. He overall notes no improvement, kick in, or wear off from carbi/levo but is still at a low dose. His orthostasis has resolved since stopping two BP meds and it is now safe to increase carbi/levo, which we will do today. If he has more lightheadedness, we could always again try to cut back one of his two remaining hypertensive (denies A-fib, pulse today 56). If he reaches that level with no tremor benefit, we can consider that he has lack of tremor response to carbi/levo and could consider DBS (his MOCA score was 26/30 and MMSE 28/30 today in 04/2022). He also should start APDA youtube channel exercises but is not currently interested in PT. He should also start PD Voice Project. We will refer to PT today as well. - Depression/anxiety; He and his note more irritability and quite a bit of social anxiety and he doesn't tolerate big enough doses of mirtazapine to affect mood. We will try escitalopram today. In the past, low dose quetiapine made him feel very sedated for the following day. - Insomnia: Even 7.5 mg of mirtazapine makes him too drowsy but sleep is not good. We will try half of a 7.5 mg tab and see if that helps. Quetiapine was also too sedating for him. - Weak urine stream and urgency: He has just finished radiation for prostate cancer. If tamsulosin were considered, it would have to be done with caution given history of orthostasis. He is on Gemtesa now and it is expensive and so far has not helped urgency. He [facility] consider [facility] Gem[facility] or could try to switch to tropsium. - Fatigue/neuropathy: He has some of each of these though no paresthesia. We will check B12, folate and TSH today. PLAN (phrased as addressed to the patient): - Increase carbi/levo as directed. - Start escitalopram 10 mg/day. - Change mirtazapine to half of a 7.5 mg tab for sleep. - Start APDA youtube channel exercises and PD Voice Project. - Could consider trading Gemtesa for trospium given cost, could also consider tamsulosin given the frequency and weak flow. -Gave rx for PT and ST. Assessment & Plan (04/18/2022 12:32 PM CDT): ASSESSMENT - 72 y.o. man with Parkinson's disease for 6 years that began in 2016 at age 66 with intermittent rest and posture tremor in the left hand that spread to the left leg and now to the right hand, along with slowing of movements including walking, micrographia, and hypophonia. - Motor symptoms: subjectively unchanged and with similar exam as previous visits. He overall notes no improvement, kick in, or wear off from carbi/levo but is still at a low dose. However, he is now experiencing orthostasis and his BP today was 96 systolic sitting. I would like him to call his specialty department supervisor about cutting back of stopping one of his 3 antihypertensives, probably propranolol (no A-fib and pulse today was 55 resting) or losartan. Once his BPs are more stable and he is not noting lightheadedness, we will incrementally increase carbi/levo to 4 tabs tid. If he reaches that level with no tremor benefit, we can consider that he has lack of tremor response to carbi/levo and could consider DBS (his MOCA score was 26/30 and MMSE 28/30 today in 04/2022). He also should start APDA youtube channel exercises but is not currently interested in PT. 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 We will try mirtazapine since it may help with all of these issues. We will start very low dose (7.5 mg) since in the past, low dose quetiapine made him feel very sedated for the following day. - Falls: no falls in spite of a 1 on the pull test. - Weak urine stream: He has just finished radiation for prostate cancer. If tamsulosin were considered, it would have to be done with caution given the current orthostasis. PLAN (phrased as addressed to the patient): - Ask specialty department supervisor about cutting back either lisinopril or propranolol given lightheadedness. - When BPs are controlled, Increase carbidopa/levodopa as directed. - Start mirtazapine. - Start APDA youtube channel exercises. - Could keep tamsulosin in mind but would have to watch for orthostasis. Assessment & Plan (10/18/2020 11:55 AM FARE REGISTER REPAIRER): ASSESSMENT - 70 y.o. man with Parkinson's disease for 4 years that began in 2016 at age 66 with intermittent rest and posture tremor in the left hand that spread to the left leg, along with slowing of movements including walking, micrographia, and hypophonia. - Motor symptoms: subjectively unchanged and with similar exam, though today there was no rest tremor in the left leg. The motor UPDRS score today was 31 in Oct 2020, 29 in Oct 2019. Will increase the dose of carbidopa/levodopa with goal to reduce tremor which is his most bothersome symtpom. - Behavioral side effects: absent. No need for quetiapine which caused him to feel like he was in a fog the next day. - Falls: no falls in spite of positive pull test. PLAN (phrased as addressed to the patient): - Increase carbidopa/levodopa 25/100 to 2 tabs 3x/day - Look out for the following possible side effects, and call my office if any of these side effects appear: nausea, dizziness when standing, drowsiness, vivid dreams, nightmares, confusion, hallucinations (seeing things), paranoia, fainting (which can cause falls and head injury). - Contact my office in 4 weeks to report whether your tremor has improved. If it has not, I may consider another increase in the medication dose. - A copy of this note should be sent to your [place] physician, Dr. Jitendra Moses: Address: [address] [place] [address] This encounter's total vxui-th-ypav time was 25 minutes. I spent more than 50% of this time in counseling and/or coordination of care as documented in the note. The patient visit started at 1124 and ended at 1154. Greater than 50% of the visit was spent on counseling and coordinating care. Patient was counseled on rationale for increase in carbidopa/levodopa Assessment & Plan (10/07/2019 2:00 PM FARE REGISTER REPAIRER): - 69 y.o. man with a 3-year history of tremor that began as intermittent rest and posture tremor in the left hand and has spread to the left leg and become more frequently present and of larger amplitude. He has also had some slowing of movements including walking, micrographia, and hypophonia. - The examination revealed mild to moderate asymmetric parkinsonism with unilateral mild to moderate rest tremor on the left, diffuse rigidity some hypomimia, mildly stooped posture, and absent right (not left) arm swing. The motor UPDRS score was 29. - I reviewed outside records from Dr. Will Mac (8 pages) - The most likely diagnosis is Parkinson's disease, as already suspected by Dr. Mac. The unilateral nature of the tremor and its presence at rest, along with other motor findings, makes this diagnosis by far the most likely. The left chest aching pain may have a contribution from PD, as it is on the same side that is more affected by PD now. - He has not had subjective benefit from low-dose carbidopa/levodopa. it's possible that higher doses will improve some of his symptoms. Will change to carbidopa/levodopa 25/100. - On the other hand, he has sleep disruption and vivid dreams that are likely side effect of low-dose carbidopa/levodopa. Therefore will need to treat behavioral side effects. Will try quetiapine. - Falls: no falls NEUROPSYCHOLOGICAL EVALUATION: INTERPRETATION Normal performance on MMSE; Normal performance on MoCA. No evidence of depression on GDS; No evidence of depression on HADS. No evidence of anxiety on HADS. No evidence of daytime drowsiness on Mayo scale. No evidence of REM Behavior Disorder (RBD) on Stiasny-Kolster scale. These scores establish a baseline for potential future reference and do not require a change in current plan. PLAN (phrased as addressed to the patient): - As we discussed, I agree with Dr. Mac that your diagnosis is Parkinson's disease. - The vivid dreams you are having, and the frequent sleep interruptions, may be side effects of the medication you are taking, carbidopa/levodopa. - I think you should try a higher dose of carbidopa/levodopa to see if that can reduce your tremor, your left chest ache, and your speed of movements and walking. - To stop the side effects and to prevent them from becoming worse with the higher medication dose, I want you to also start taking a medication, quetiapine, that counters the mental side effects of carbidopa/levodopa. - Stop carbidopa/levodopa 10/100 - Start carbidopa/levodopa 25/100, 1 tab 3x/day - Look out for the following possible side effects, and call my office if any of these side effects appear: nausea, dizziness when standing, drowsiness, vivid dreams, nightmares, confusion, hallucinations (seeing things), paranoia, fainting (which can cause falls and head injury). - Start quetiapine 25 mg tabs, 1 tab at bedtime - Contact my office in 4 weeks to report whether you still have tremor, small handwriting, ache in the left side of your chest, sleep disruption, and vivid dreams. Status post mitral valve annuloplasty 08/31/2017 Assessment & Plan (08/30/2021 5:37 PM CDT): Exam does not suggest any mitral insufficiency, and he is not experiencing any shortness of breath. Assessment & Plan (02/23/2018 9:59 AM CDT): No mitral insufficiency murmur, and no symptoms suggestive of mitral insufficiency status post mitral valve repair. Assessment & Plan (08/31/2017 8:49 AM CDT): No mitral insufficiency murmur heard. Non-rheumatic mitral regurgitation 08/31/2017 Assessment & Plan (10/26/2020 9:38 AM FARE REGISTER REPAIRER): Status post mitral valve repair. He has no symptoms of shortness of breath. Will obtain an echo Doppler with his office visit in one year Assessment & Plan (03/01/2019 9:54 AM CDT): Status post mitral annuloplasty. No mitral insufficiency murmur is heard. Assessment & Plan (08/31/2017 8:49 AM CDT): Mitral valve prolapse with severe MR, successfully repaired. Coronary artery disease of n ative artery of [place] heart with stable angina pectoris ([facility]) 08/31/2017 Assessment & Plan (09/14/2024 9:41 AM CDT): Continues to do well. No chest discomfort. Continue aspirin and Crestor. Continue propranolol. Assessment & Plan (09/09/2023 10:06 AM CDT): Doing well. No chest discomfort. Continue secondary prevention with aspirin and statin. Assessment & Plan (08/27/2022 2:14 PM CDT): Doing well. No chest discomfort on his current regimen. Continue aspirin and statin. Feel that we can safely discontinue isosorbide at this time. Assessment & Plan (08/30/2021 5:37 PM CDT): No symptoms of myocardial ischemia. EKG is reassuring. Continue aspirin 81 mg daily. He is at low risk of cardiac complications in the course of his upcoming prostate biopsy, and can hold aspirin for seven days prior to his biopsy. Assessment & Plan (10/26/2020 9:38 AM FARE REGISTER REPAIRER): No symptoms of myocardial ischemia. Continue aspirin. Assessment & Plan (03/01/2019 9:54 AM CDT): No symptoms of myocardial ischemia. Continue aspirin. Assessment & Plan (02/23/2018 9:59 AM CDT): No symptoms of myocardial ischemia. He is on anti-platelet therapy. Assessment & Plan (08/31/2017 8:48 AM CDT): Recent coronary revascularization. No symptoms of myocardial ischemia. Continue aspirin. Hyperlipidemia 08/31/2017 Assessment & Plan (09/14/2024 9:45 AM CDT): Improved. Continue Zetia and Crestor. Assessment & Plan (09/09/2023 10:07 AM CDT): Variably compliant with rosuvastatin. LDL has increased from 49-101 mg/dL. Recommended that he maintain compliance with rosuvastatin. Assessment & Plan (08/27/2022 2:15 PM CDT): Well controlled. Continue Crestor. Consider stopping Zetia at his next appointment. Assessment & Plan (08/30/2021 5:38 PM CDT): Lipids done at the [place] reviewed. They are excellent. Continue rosuvastatin 40 mg daily and Zetia 10 mg daily. Assessment & Plan (10/26/2020 9:41 AM FARE REGISTER REPAIRER): On chronic lipid lowering therapy with good control. No changes made. Lipids from 09/21/2020 reviewed. Assessment & Plan (03/01/2019 9:55 AM CDT): Lipids checked today are excellent, with his total cholesterol less than 100, HDL 32, and LDL therefore less than 70. Continue rosuvastatin. He does not need to continue Zetia. Assessment & Plan (02/23/2018 9:59 AM CDT): On chronic lipid-lowering therapy. Assessment & Plan (08/31/2017 8:50 AM CDT): On chronic lipid-lowering therapy. Essential hypertension 08/31/2017 Assessment & Plan (09/14/2024 9:45 AM CDT): Currently well controlled. Continue losartan and propranolol. Assessment & Plan (08/30/2021 5:37 PM CDT): Blood pressure is well controlled. Continue losartan 100 mg daily and hydrochlorothiazide 25 mg daily. Assessment & Plan (10/26/2020 9:39 AM FARE REGISTER REPAIRER): Blood pressure is well controlled. Current medications are appropriate. Should he develop any autonomic insufficiency with orthostatic hypotension, would re- evaluate the use of hydrochlorothiazide. Assessment & Plan (03/01/2019 9:54 AM CDT): Blood pressure is adequately controlled on current regimen. No change was made. Assessment & Plan (02/23/2018 9:59 AM CDT): Blood pressure is adequately controlled on current regimen. No change was made. Assessment & Plan (08/31/2017 8:49 AM CDT): Blood pressure is adequately controlled on current regimen. No change was made. Immunizations Immunization Administration Dates Next Due Influenza, Quadrivalent, Spl it, Preservative Free, Intramuscular 08/20/2018 Influenza, Trivalent, High D ose, Split, Preservative Free, Intramuscular 08/31/2017 Influenza, Unspecified 07/17/2021,09/07/2020,11/2015 Pfizer SARS-CoV-2 Monovalent Vaccination (12+ Yrs) PURPLE 08/20/2021 Pneumococcal Conjugate PCV 13 03/01/2018 Pneumococcal Polysaccharide PPV23 03/21/2019 ZOSTER LIVE 01/29/2017 ZOSTER Recombinant 12/25/2020,09/21/2020 Social History Tobacco Use Types Packs/Day Years Used Date Smoking Tobacco: Former Cigarettes 1.5 20 1 973 - 1992 Passive Smoke Exposure: Past Smokeless Tobacco: Never Tobacco Cessation:Counseling Given: Not Answered Alcohol Use Standard Drinks/Week Comments Yes 0 (1 standard drink = 0.6 oz pur e alcohol) AUDIT-C Answer Date Recorded Q1: How often do you have a drink containing alc ohol? 2-3 times a week 09/09/2023 Q2: How many drinks containi ng alcohol do you have on a typical day when you are drinking? 1 or 2 09/09/2023 Q3: How often do you have si x or more drinks on one occasion? Never 09/09/2023 Personal Safety Answer Date Recorded Have you ever been in or are you currently in a harmful physical or emotional relationship or is someone making you feel afraid or unsafe? 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 Not on file Not on fi le Not on file Last Filed Vital Signs Vital Sign Reading Time Taken Comments Blood Pressure 126/78 09/14/2024 8:52 AM CDT Pulse 68 09/14/2024 8:52 AM CDT Temperature 37 C (98.6 F) 09/16/2023 1:07 PM CDT Respiratory Rate 20 09/16/2023 1:45 PM CDT Oxygen Saturation 98% 09/14/2024 8:52 AM CDT Inhaled Oxygen Concentration - - Weight 97.5 kg (215 lb) 09/14/2024 8:52 AM CDT Height 167.6 cm (5' 6 ) 09/14/2024 8:52 AM CDT Body Mass Index 34.7 09/14/2024 8:52 AM CDT Plan of Treatment Not on file Insurance MEDICARE [facility] Address: [address] [address] [facility] MEDICARE [facility] MEDICARE [employer] Advance Directives For more information, please contact: [phone] Documents on File Type Date Recorded Patient Records Management Manager Expl anation ADVANCE DIRECTIVE 07/09/2017 Advance Di rective Checklist ADVANCE DIRECTIVE 06/29/2017 Advance Di rective Checklist Care Teams Global Cmo Relationship Specialty Start Date End Date Will Mac MD [address] [place] [address] PCP - General 02/13/17 Kell Berkowitz MD [address] [place] [address] Consulting Physician Internal Medicine 10/05/19 Jitendra Moses MD [address] [place] [address] Consulting Physician Family Medicine 10/18/20 Ivett Saenz MD [address] [facility] [address] [place] [address] Input Output Clerk Cardiology 12/31/20
--- OUTSIDE RECORDS SUMMARY | 2025-03-09 11:56 | XMS_ITS | Continuity of Care Document ---
Author Name [facility] Organization [facility] Care Team Providers Care Appliance Repairer Name Role Phone [facility] Unavailable Unavailable Problems Combined list of problems from Department of Defense and Veterans Affairs facilities. It does not include entries that were removed or entered in error. Problem Status Onset Date Problem Type Date of Resolution Comments Source CAD - Coronary artery disease (SNOMED CT 54481000) Active Condition [facility] Essential hypertension (SNOMED CT 10972265) Active Condition [facility] Exposure to potentially hazardous substance (SCT 963103245359380) Active Condition Jun 01 4 Entered By: PRIMITIVO STANLEY Comment: Entered automatically through CLAUDINE Problem List documentation program [facility] Impaired glucose tolerance Active Condition [facility] Mixed hyperlipidemia (SNOMED CT 389724161) Active Condition [facility] Parkinson's disease Active Condition [facility] Prostate cancer Active Condition [facility] Vitamin D deficiency Active Condition [facility] Tremor Inactive Condition 08/20/2021 [facility] Diagnosis: ICD-10-CM G20.A1 Parkinson's dis w/o dyskinesia, w/o mention of fluctuations Active Diagnosis [facility] Diagnosis: ICD-10-CM R13.10 Dysphagia, unspecified Active Diagnosis [facility] Diagnosis: ICD-10-CM I25.10 Athscl heart disease [place] coronary artery w/o ang pctrs Active Diagnosis [facility] Diagnosis: ICD-10-CM Z85.46 Personal history of malignant neoplasm of prostate Active Diagnosis [facility] Diagnosis: ICD-10-CM H40.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, low risk, bilateral Active Diagnosis [facility] Diagnosis: ICD-10-CM H04.123 Dry eye syndrome of bilateral lacrimal glands Active Diagnosis [facility] Diagnosis: ICD-10-CM R13.12 Dysphagia, oropharyngeal phase Active Diagnosis [facility] Diagnosis: ICD-10-CM R41.841 Cognitive communication deficit Active Diagnosis [facility] Diagnosis: ICD-10-CM G20.B2 Parkinson's disease with dyskinesia, with fluctuations Active Diagnosis [facility] Diagnosis: ICD-10-CM N32.81 Overactive bladder Active Diagnosis [facility] Medications Combined list of outpatient medications from Department of Defense and [facility] facilities.Medications provided include 1) outpatient medications from the last 15 months, and 2) patient-reported medications. Medication Details Route Status Patient Instructions Prescription Expires Prescription Number Last Dispense Date Ordering Provider Order Date Order Qty Source ASPIRIN 81MG TAB,EC TAKE ONE TABLET BY MOUTH ONCE A DAY FOR CARDIOVA SCULAR DISEASE TAKE WITH FOOD. ORAL ACTIVE 06/01/2025 [id number] ROBBIE FARRELL 2023 120 [facility] BUSPIRONE HCL 10MG TAB TAKE ONE-HALF TABLET BY MOUTH THREE TIMES A DAY FOR ANXIETY DO NOT TAKE WITH GRAPEFRU IT JUICE. ORAL SUSPEND ED 02/02/2026 [id number] 5 TIHSA HARVEY N 2024 135 [facility] BUSPIRONE HCL 10MG TAB TAKE ONE-HALF TABLET BY MOUTH THREE TIMES A DAY FOR ANXIETY DO NOT TAKE WITH GRAPEFRU IT JUICE. ORAL DISCONT INUED 05/27/2025 [id number] 5 TISHA HARVEY N 2023 135 [facility] BUSPIRONE HCL 10MG TAB TAKE ONE-HALF TABLET BY MOUTH TWICE A DAY FOR ANXIETY DO NOT TAKE WITH GRAPEFRU IT JUICE. ORAL 05/24/2024 [id number] COMFORT HARVEYA N 2023 90 [facility] CARBAMIDE PEROXIDE 6.5%/GLYCER IN SOLN,OTIC INSTILL 2 DROPS IN BOTH EARS TWICE DAILY FOR EAR WAX BLOCKAGE AURICU LAR (OTIC) ACTIVE 06/01/2025 [id number] 4 ROBBIE FARRELL B 2023 30 [facility] CARBIDOPA 25MG/LEVODO PA 100MG TAB TAKE 2 TABLETS BY MOUTH THREE TIMES A DAY FOR PARKINSO N DISEASE ORAL SUSPEND ED 09/24/2025 [id number] 5 TRISHA FREITAS ERT L III 2023 540 [facility] CARBIDOPA 25MG/LEVODO PA 100MG TAB TAKE 2 TABLETS BY MOUTH THREE TIMES A DAY FOR PARKINSO N DISEASE ORAL DISCONT INUED 01/22/2025 [id number] 4 TRISHA FREITAS ERT L III 2023 540 [facility] CARBOXYMETH YLCELLULOSE NA 0.5% SOLN,OPH INSTILL 1 DROP IN BOTH EYES FOUR TIMES A DAY NEEDED OPHTHA LMIC ACTIVE 03/18/2025 [id number] 5 ЕКАТЕРИНА SHEETS THI 2023 45 [facility] EZETIMIBE 10MG TAB TAKE ONE TABLET BY MOUTH ONCE A DAY ORAL ACTIVE ANIA LEAVITT 2022 [facility] GABAPENTIN 100MG CAP TAKE ONE CAPSULE BY MOUTH AT BEDTIME FOR NERVE PAIN ORAL ACTIVE 06/01/2025 [id number] 4 ROBBIE FARRELL B 2023 30 [facility] LOSARTAN POTASSIUM 100MG TAB TAKE ONE TABLET BY MOUTH ONCE A DAY FOR HIGH BLOOD PRESSURE ORAL ACTIVE 06/01/2025 [id number] 5 ROBBIE FARRELL E B 2023 90 [facility] PROPRANOLOL HCL 60MG CAP,SA TAKE ONE CAPSULE BY MOUTH ONCE A DAY FOR HIGH BLOOD PRESSURE ORAL ACTIVE 06/01/2025 [id number] 5 ROBBIE FARRELL B 2023 90 [facility] ROSUVASTATI N CA 40MG TAB TAKE ONE TABLET BY MOUTH EVERY EVENING FOR HIGH CHOLESTE ROL ORAL ACTIVE 06/01/2025 [id number] 5 BUDROBBIE Raman 2023 90 [facility] TAMSULOSIN HCL 0.4MG CAP TAKE ONE CAPSULE BY MOUTH EVERY EVENING APPROXIM ATELY 30 MINUTES AFTER THE SAME MEAL EACH DAY ORAL SUSPEND ED 05/19/2025 [id number] 5 ANIA LEAVITT M 2023 90 [facility] TAMSULOSIN HCL 0.4MG CAP TAKE ONE CAPSULE BY MOUTH EVERY EVENING APPROXIM ATELY 30 MINUTES AFTER THE SAME MEAL EACH DAY ORAL DISCONT INUED 11/11/2024 [id number] 4 ANIA LEAVITT 2022 90 [facility] VIBEGRON 75MG TAB TAKE ONE TABLET BY MOUTH ONCE A DAY FOR OVERACTI VE BLADDER ORAL SUSPEND ED 05/19/2025 [id number] 5 ANIA LEAVITT 2023 90 [facility] N VIBEGRON 75MG TAB TAKE ONE TABLET BY MOUTH ONCE A DAY FOR OVERACTI VE BLADDER ORAL DISCONT INUED 11/13/2024 [id number] 4 ANIA LEAVITT 2022 90 [facility] Allergies, Adverse Reactions, Alerts Combined list of allergies from Department of Defense and Veterans Affairs facilities. It does not include entries that were removed or entered in error. Substance Category Reaction Severity Reaction type Status Date Reported Comments Source LISINOPRIL Propensity to adverse reactions to drug (finding) Cough active 8 [facility] OXYBUTYNIN CHLORIDE Propensity to adverse reactions to drug (finding) Delirium, Retention of urine MILD active 3 [facility] Immunizations Combined list of available immunizations from the Department of Defense and Veterans Affairs facilities. Immunization Series Date Given Administered By Site Reaction Lot Number CVX Code Drug [place] Status Comments Source COVID-19 ([employer]), MRNA, LNP-S, PF, 30 MCG/0.3 ML DOSE 3 2020 208 complet ed PFR; [id number]; 1 [facility] INFLUENZA, UNSPECIFIED FORMULATION 2020 88 complet ed [facility] COVID-19 ([employer]), MRNA, LNP-S, PF, 30 MCG/0.3 ML DOSE 2 2020 208 complet ed [facility] COVID-19 ([facility]), MRNA, LNP-S, PF, 30 MCG/0.3 ML DOSE 1 2020 208 complet [facility] DIVISIO N ZOSTER RECOMBINANT 2 2020 FEVER 187 complet [facility] DIVISIO N ZOSTER RECOMBINANT 1 2019 187 complet [facility] DIVISIO N INFLUENZA, UNSPECIFIED FORMULATION 2019 88 [facility] DIVISIO N PNEUMOCOCCAL POLYSACCHARID E PPV23 2018 33 complet [facility] DIVISIO N INFLUENZA, INJECTABLE, QUADRIVALENT, PRESERVATIVE FREE 2017 150 complet [facility] N PNEUMOCOCCAL CONJUGATE PCV 13 2017 133 complet [facility] DIVISIO N INFLUENZA, HIGH DOSE SEASONAL 2016 135 complet [facility] DIVISIO N ZOSTER LIVE 2016 121 complet ed [facility] INFLUENZA, UNSPECIFIED FORMULATION 2015 88 complet [facility] DIV[facility]IO N Results Combined list of recent chemistry, hematology and other laboratory results from Department of Defense and Veterans Affairs, ranging from 15 months to all on record, depending upon the facility. Order Name Results Value Reference Range Date Interpretation Specimen Comments Source PROST. SPECIFIC AG.(PB-ST L) PROSTATE SPECIFIC AG [MASS/VOLUM E] IN SERUM OR PLASMA 0.804 ng/mL 0.000 - 4.000 05/31 Specimen Type: SERUM Comment: The listed sex of this patient may not be a typical indication for this test. Therefore, reference ranges or interpretiv e criteria listed may not be valid. Clinical correlation suggested. Ordering Provider: NATALYA LEAVITT Report Released Date/Time: Nov 17, 2023 07:12 AM Reporting Lab: [facility] [place] [address] Performing Lab: [facility] [address] LIPID PANEL (STL) CHOLESTEROL [MASS/VOLUM E] IN SERUM OR PLASMA 195 mg/dL 0 - 200 05/31 Specimen Type: PLASMA Comment: No hemolysis noted. Ordering Provider: ROSS FARRELL Report Released Date/Time: May 31, 2024 03:05 PM Reporting Lab: [facility] [place] [address] Performing Lab: [facility] [address] LIPID PANEL (STL) TRIGLYCERID E [MASS/VOLUM E] IN SERUM OR PLASMA 147 mg/dL 0 - 150 05/31 Specimen Type: PLASMA Comment: No hemolysis noted. Ordering Provider: ROSS FARRELL Report Released Date/Time: May 31, 2024 03:05 PM Reporting Lab: [facility] 1 [place] [address] Performing Lab: [facility] [address] LIPID PANEL (STL) CHOLESTEROL IN LDL [MASS/VOLUM E] IN SERUM OR PLASMA BY CALCULATION 125 mg/dL 05/31 Specimen Type: PLASMA Comment: No hemolysis noted. Ordering Provider: ROSS FARRELL Report Released Date/Time: May 31, 2024 03:05 PM Reporting Lab: [facility] [place] [address] Performing Lab: [facility] [address] [facility] LIPID PANEL (STL) CHOLESTEROL IN HDL [MASS/VOLUM E] IN SERUM OR PLASMA 41 mg/dL 40 05/31 Specimen Type: PLASMA Comment: No hemolysis noted. Ordering Provider: ROSS FARRELL Report Released Date/Time: May 31, 2024 03:05 PM Reporting Lab: [facility] [place] [address] Performing Lab: [facility] DIVISION COMPREHEN SIVE METABOLIC PANEL CREATININE [MASS/VOLUM E] IN SERUM OR PLASMA 1.00 mg/dL 0.70 - 1.30 05/31 Specimen Type: PLASMA Comment: No hemolysis noted. Ordering Provider: ROSS FARRELL Report Released Date/Time: May 31, 2024 03:05 PM Reporting Lab: [facility] [place] [address] Performing Lab: [facility] DIVISION COMPREHEN SIVE METABOLIC PANEL UREA NITROGEN [MASS/VOLUM E] IN SERUM OR PLASMA 19.1 mg/dL 9.0 - 25.0 05/31 Specimen Type: PLASMA Comment: No hemolysis noted. Ordering Provider: ROSS FARRELL Report Released Date/Time: May 31, 2024 03:05 PM Reporting Lab: [facility] [place] [address] Performing Lab: [facility] DIVISION COMPREHEN SIVE METABOLIC PANEL GLUCOSE [MASS/VOLUM E] IN SERUM OR PLASMA 97 mg/dL 72 - 99 05/31 Specimen Type: PLASMA Comment: No hemolysis noted. Ordering Provider: ROSS FARRELL Report Released Date/Time: May 31, 2024 03:05 PM Reporting Lab: [facility] [place] [address] Performing Lab: [facility] [phone] [place] [address] DIVISION COMPREHEN SIVE METABOLIC PANEL SODIUM [MOLES/VOLU ME] IN SERUM OR PLASMA 141 meq/L 136 - 145 05/31 Specimen Type: PLASMA Comment: No hemolysis noted. Ordering Provider: ROSS FARRELL Report Released Date/Time: May 31, 2024 03:05 PM Reporting Lab: [facility] [address] Performing Lab: [facility] [phone] DIVISION COMPREHEN SIVE METABOLIC PANEL POTASSIUM [MOLES/VOLU ME] IN SERUM OR PLASMA 4.5 meq/L 3.5 - 5.0 05/31 Specimen Type: PLASMA Comment: No hemolysis noted. Ordering Provider: ROSS FARRELL Report Released Date/Time: May 31, 2024 03:05 PM Reporting Lab: [facility] [phone] Performing Lab: [facility] [phone] DIVISION COMPREHEN SIVE METABOLIC PANEL CHLORIDE [MOLES/VOLU ME] IN SERUM OR PLASMA 107 meq/L 98 - 107 05/31 Specimen Type: PLASMA Comment: No hemolysis noted. Ordering Provider: ROSS FARRELL Report Released Date/Time: May 31, 2024 03:05 PM Reporting Lab: [facility] [address] Performing Lab: [facility] DIVISION COMPREHEN SIVE METABOLIC PANEL CARBON DIOXIDE, TOTAL [MOLES/VOLU ME] IN SERUM OR PLASMA 23 meq/L 22 - 31 05/31 Specimen Type: PLASMA Comment: No hemolysis noted. Ordering Provider: ROSS FARRELL Report Released Date/Time: May 31, 2024 03:05 PM Reporting Lab: [facility] [place] [address] Performing Lab: [facility] DIVISION COMPREHEN SIVE METABOLIC PANEL CALCIUM [MASS/VOLUM E] IN SERUM OR PLASMA 9.6 mg/dL 8.4 - 10.4 05/31 Specimen Type: PLASMA Comment: No hemolysis noted. Ordering Provider: ROSS FARRELL Report Released Date/Time: May 31, 2024 03:05 PM Reporting Lab: [facility] [place] [address] Performing Lab: [facility] DIVISION COMPREHEN SIVE METABOLIC PANEL PROTEIN [MASS/VOLUM E] IN SERUM OR PLASMA 7.4 g/dL 6.0 - 8.6 05/31 Specimen Type: PLASMA Comment: No hemolysis noted. Ordering Provider: ROSS FARRELL Report Released Date/Time: May 31, 2024 03:05 PM Reporting Lab: [facility] [place] [address] Performing Lab: [facility] DIVISION COMPREHEN SIVE METABOLIC PANEL ALBUMIN [MASS/VOLUM E] IN SERUM OR PLASMA 4.3 g/dL 3.4 - 5.0 05/31 Specimen Type: PLASMA Comment: No hemolysis noted. Ordering Provider: ROSS FARRELL Report Released Date/Time: May 31, 2024 03:05 PM Reporting Lab: [facility] [place] [address] Performing Lab: [facility] DIVISION COMPREHEN SIVE METABOLIC PANEL BILIRUBIN.T OTAL [MASS/VOLUM E] IN SERUM OR PLASMA 1.0 mg/dL 0.2 - 1.2 05/31 Specimen Type: PLASMA Comment: No hemolysis noted. Ordering Provider: ROSS FARRELL Report Released Date/Time: May 31, 2024 03:05 PM Reporting Lab: [facility] [place] [address] Performing Lab: [facility] DIVISION COMPREHEN SIVE METABOLIC PANEL ALKALINE PHOSPHATASE [ENZYMATIC ACTIVITY/VO LUME] IN SERUM OR PLASMA 92 U/L 40 - 150 05/31 Specimen Type: PLASMA Comment: No hemolysis noted. Ordering Provider: ROSS FARRELL Report Released Date/Time: May 31, 2024 03:05 PM Reporting Lab: [facility] [place] [address] Performing Lab: [facility] DIVISION COMPREHEN SIVE METABOLIC PANEL ASPARTATE AMINOTRANSF ERASE [ENZYMATIC ACTIVITY/VO LUME] IN SERUM OR PLASMA 16 U/L 5 - 34 05/31 Specimen Type: PLASMA Comment: No hemolysis noted. Ordering Provider: ROSS FARRELL Report Released Date/Time: May 31, 2024 03:05 PM Reporting Lab: [facility] [place] [address] Performing Lab: [facility] DIVISION COMPREHEN SIVE METABOLIC PANEL ALANINE AMINOTRANSF ERASE [ENZYMATIC ACTIVITY/VO LUME] IN SERUM OR PLASMA 12 U/L 8 - 40 05/31 Specimen Type: PLASMA Comment: No hemolysis noted. Ordering Provider: ROSS FARRELL Report Released Date/Time: May 31, 2024 03:05 PM Reporting Lab: [facility] [place] [address] Performing Lab: [facility] [phone] [place] [address] DIVISION COMPREHEN SIVE METABOLIC PANEL GLOMERULAR FILTRATION RATE/1.73 SQ M.PREDICTED [VOLUME RATE/AREA] IN SERUM, PLASMA OR BLOOD BY CREATININE- BASED FORMULA (CKD-EPI 2020) 79.47 60 05/31 Specimen Type: PLASMA Comment: No hemolysis noted. Ordering Provider: ROSS FARRELL Report Released Date/Time: May 31, 2024 03:05 PM Reporting Lab: [facility] [place] [address] Performing Lab: [facility] DIVISION HGA1C HEMOGLOBIN A1C/HEMOGLO BIN.TOTAL IN BLOOD 6.0 4.0 - 6.0 05/31 Specimen Type: BLOOD No comment entered. Ordering Provider: ROSS FARRELL Report Released Date/Time: May 31, 2024 03:05 PM Reporting Lab: [facility] [phone] Performing Lab: [facility] DIVISION CBC LEUKOCYTES [#/VOLUME] IN BLOOD BY AUTOMATED COUNT 7.1 10*3/u L 3.6 - 11.2 05/31 Specimen Type: BLOOD No comment entered. Ordering Provider: ROSS FARRELL Report Released Date/Time: May 31, 2024 03:05 PM Reporting Lab: [facility] [phone] Performing Lab: [facility] [phone] DIVISION CBC ERYTHROCYTE S [#/VOLUME] IN BLOOD BY AUTOMATED COUNT 4.57 10*6/u L 4.10 - 5.70 05/31 Specimen Type: BLOOD No comment entered. Ordering Provider: ROSS FARRELL Report Released Date/Time: May 31, 2024 03:05 PM Reporting Lab: [facility] [address] Performing Lab: [facility] DIVISION CBC HEMOGLOBIN [MASS/VOLUM E] IN BLOOD 14.5 g/dL 13.1 - 16.8 05/31 Specimen Type: BLOOD No comment entered. Ordering Provider: ROSS FARRELL Report Released Date/Time: May 31, 2024 03:05 PM Reporting Lab: [facility] [place] [phone] Performing Lab: [facility] CBC HEMATOCRIT [VOLUME FRACTION] OF BLOOD 43.9 38.2 - 48.4 05/31 Specimen Type: BLOOD No comment entered. Ordering Provider: ROSS FARRELL Report Released Date/Time: May 31, 2024 03:05 PM Reporting Lab: [facility] [place] [address] Performing Lab: [facility] DIVISION CBC MCV [ENTITIC VOLUME] BY AUTOMATED COUNT 96.1 fL 80.0 - 100.0 05/31 Specimen Type: BLOOD No comment entered. Ordering Provider: ROSS FARRELL Report Released Date/Time: May 31, 2024 03:05 PM Reporting Lab: [facility] [phone] Performing Lab: [facility] DIVISION CBC MCH [ENTITIC MASS] BY AUTOMATED COUNT 31.7 pg 27.0 - 34.0 05/31 Specimen Type: BLOOD No comment entered. Ordering Provider: ROSS FARRELL Report Released Date/Time: May 31, 2024 03:05 PM Reporting Lab: [facility] [address] Performing Lab: [facility] [phone] [place] [address] DIVISION CBC MCHC [MASS/VOLUM E] BY AUTOMATED COUNT 33.0 g/dL 33.0 - 36.0 05/31 Specimen Type: BLOOD No comment entered. Ordering Provider: ROSS FARRELL Report Released Date/Time: May 31, 2024 03:05 PM Reporting Lab: [facility] [address] Performing Lab: [facility] [phone] DIVISION CBC PLATELETS [#/VOLUME] IN BLOOD BY AUTOMATED COUNT 192 10*3/u L 150 - 400 05/31 Specimen Type: BLOOD No comment entered. Ordering Provider: ROSS FARRELL Report Released Date/Time: May 31, 2024 03:05 PM Reporting Lab: [facility] [address] Performing Lab: [facility] [phone] DIVISION CBC PLATELET MEAN VOLUME [ENTITIC VOLUME] IN BLOOD BY AUTOMATED COUNT 9.6 fL 7.5 - 11.2 05/31 Specimen Type: BLOOD No comment entered. Ordering Provider: ROSS FARRELL Report Released Date/Time: May 31, 2024 03:05 PM Reporting Lab: [facility] [address] Performing Lab: [facility] [phone] DIVISION CBC ERYTHROCYTE DISTRIBUTIO N WIDTH [RATIO] BY AUTOMATED COUNT 14.6 11.8 - 15.1 05/31 Specimen Type: BLOOD No comment entered. Ordering Provider: ROSS FARRELL Report Released Date/Time: May 31, 2024 03:05 PM Reporting Lab: [facility] [address] Performing Lab: [facility] [phone] [place] [address] DIVISION CBC LYMPHOCYTES /100 LEUKOCYTES IN BLOOD BY AUTOMATED COUNT 18 05/31 Specimen Type: BLOOD No comment entered. Ordering Provider: ROSS FARRELL Report Released Date/Time: May 31, 2024 03:05 PM Reporting Lab: [facility] [phone] Performing Lab: [facility] [phone] [place] [address] DIVISION CBC MONOCYTES/1 00 LEUKOCYTES IN BLOOD BY AUTOMATED COUNT 7 05/31 Specimen Type: BLOOD No comment entered. Ordering Provider: ROSS FARRELL Report Released Date/Time: May 31, 2024 03:05 PM Reporting Lab: [facility] [phone] Performing Lab: [facility] [phone] [place] [address] DIVISION CBC NEUTROPHILS /100 LEUKOCYTES IN BLOOD BY AUTOMATED COUNT 70 05/31 Specimen Type: BLOOD No comment entered. Ordering Provider: ROSS FARRELL Report Released Date/Time: May 31, 2024 03:05 PM Reporting Lab: [facility] [id number] Performing Lab: [facility] [id number] [place] [address] DIVISION CBC EOSINOPHILS /100 LEUKOCYTES IN BLOOD BY AUTOMATED COUNT 4 05/31 Specimen Type: BLOOD No comment entered. Ordering Provider: ROSS FARRELL Report Released Date/Time: May 31, 2024 03:05 PM Reporting Lab: [facility] [id number] Performing Lab: [facility] DIVISION CBC BASOPHILS/1 00 LEUKOCYTES IN BLOOD BY AUTOMATED COUNT 0 05/31 Specimen Type: BLOOD No comment entered. Ordering Provider: ROSS FARRELL Report Released Date/Time: May 31, 2024 03:05 PM Reporting Lab: [facility] [place] [id number] Performing Lab: [facility] DIVISION CBC LYMPHOCYTES [#/VOLUME] IN BLOOD BY AUTOMATED COUNT 1.28 10*3/u L 0.77 - 4.50 05/31 Specimen Type: BLOOD No comment entered. Ordering Provider: ROSS FARRELL Report Released Date/Time: May 31, 2024 03:05 PM Reporting Lab: [facility] [place] [address] Performing Lab: [facility] DIVISION CBC MONOCYTES [#/VOLUME] IN BLOOD BY AUTOMATED COUNT 0.51 10*3/u L 0.19 - 0.80 05/31 Specimen Type: BLOOD No comment entered. Ordering Provider: ROSS FARRELL Report Released Date/Time: May 31, 2024 03:05 PM Reporting Lab: [facility] [place] [address] Performing Lab: [facility] DIVISION CBC NEUTROPHILS [#/VOLUME] IN BLOOD BY AUTOMATED COUNT 4.93 10*3/u L 2.10 - 8.00 05/31 Specimen Type: BLOOD No comment entered. Ordering Provider: ROSS FARRELL Report Released Date/Time: May 31, 2024 03:05 PM Reporting Lab: [facility] [place] [address] Performing Lab: [facility] [address] [facility] CBC EOSINOPHILS [#/VOLUME] IN BLOOD BY AUTOMATED COUNT 0.29 10*3/u L 0.00 - 0.60 05/31 Specimen Type: BLOOD No comment entered. Ordering Provider: ROSS FARRELL Report Released Date/Time: May 31, 2024 03:05 PM Reporting Lab: [facility] [address] Performing Lab: [facility] [id number] [place] [address] CBC BASOPHILS [#/VOLUME] IN BLOOD BY AUTOMATED COUNT 0.02 10*3/u L 0.00 - 0.20 05/31 Specimen Type: BLOOD No comment entered. Ordering Provider: RSOS FARRELL Report Released Date/Time: May 31, 2024 03:05 PM Reporting Lab: [facility] [address] Performing Lab: [facility] [id number] Vital Signs Combined list of inpatient and outpatient Vital Signs from Department of Defense and Veterans Affairs, ranging from 12 months to all on record, depending upon the facility. Vital Sign Value Date Comments Source SYSTOLIC BLOOD PRESSURE 123 02/01/2025 12:36:24 [facility] DIASTOLIC BLOOD PRESSURE 86 02/01/2025 12:36:24 [facility] PULSE OXIMETRY 96 02/01/2025 12:36:24 [facility] PAIN 0 02/01/2025 12:36:24 [facility] TEMPERATURE 97.3 02/01/2025 12:36:24 [facility] PULSE 101 02/01/2025 12:36:24 [facility] RESPIRATION 20 02/01/2025 12:36:24 [facility] SYSTOLIC BLOOD PRESSURE 152 05/31/2024 14:21:48 [facility] DIASTOLIC BLOOD PRESSURE 91 05/31/2024 14:21:48 [facility] PULSE OXIMETRY 95 05/31/2024 14:21:48 [place] [facility] WEIGHT 215 05/31/2024 14:21:48 [facility] [place] [facility] BMI 32 kg/m2 05/31/2024 14:21:48 [facility] [place] [facility] PAIN 0 05/31/2024 14:21:48 [facility] [place] [facility] TEMPERATURE 98.2 05/31/2024 14:21:48 [facility] PULSE 75 05/31/2024 14:21:48 [facility] [place] [facility] RESPIRATION 18 05/31/2024 14:21:48 [facility] SYSTOLIC BLOOD PRESSURE 124 05/18/2024 09:33:35 [facility] DIASTOLIC BLOOD PRESSURE 81 05/18/2024 09:33:35 [facility] PULSE OXIMETRY 96 05/18/2024 09:33:35 [place] [facility] WEIGHT 214 05/18/2024 09:33:35 [place] [place] [facility] BMI 32 kg/m2 05/18/2024 09:33:35 [facility] PAIN 0 05/18/2024 09:33:35 [place] [facility] HEIGHT 69 05/18/2024 09:33:35 [facility] TEMPERATURE 97.5 05/18/2024 09:33:35 [facility] PULSE 54 05/18/2024 09:33:35 [facility] RESPIRATION 18 05/18/2024 09:33:35 [facility] Encounters Combined list of: 1) Encounters from Department of [facility] Affairs facilities going backup to the last 18 months, not all VA inpatient encounters are included; 2) Encounters from the Department of Defense facilities going backup to 280 months. Location Location Details Encounter Type Encounter Number Reason For Visit Attending Provider ADM Date DC Date Status Disposition Source [facility] OFFICE O/P EST HI 40-54 MIN [id number] Diagnos is: ICD-10- CM G20.A1 Hayde on's dis w/o dyskine bud, w/o mention of fluctua tions HAO FREITAS RT L III 10/19 [facility] Outpatient Encounter [id number] 10/19 [facility] OFFICE O/P EST MOD 30-39 MIN [id number] Diagnos is: ICD-10- CM Z85.46 Persona l history of maligna nt neoplas m of prostat e DHEERAJ LEAVITT 11/11 [facility] QNHP OL DIG ASSMT&MGMT 5-10 [id number] Diagnos is: ICD-10- CM N32.81 Overact kyle bladder GEOVANY SHETH 11/13 [facility] Outpatient Encounter [id number] Diagnos is: ICD-10- CM 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, with fluctua tions TRACI JACKSON 01/21 [facility] DIV[facility] OFFICE O/P EST HI 40 MIN [id number] [id number] Diagnos is: ICD-10- CM G20.A1 Hayde on's dis w/o dyskine bud, w/o mention of fluctua tions HAO FREITAS RT L III 01/21 [facility] SPEECH/HEA RING THERAPY [id number] Diagnos is: ICD-10- CM R41.841 Cogniti ve communi cation deficit TOBIAS LEWIS C 01/21 [facility] SELF CARE MNGMENT TRAINING [id number] Diagnos is: ICD-10- CM G20.A1 Hayde on's dis w/o dyskine bud, w/o mention of fluctua tions SARAI ROWLAND A 01/21 [facility] Outpatient Encounter [id number] 01/21 [facility] OT EVAL MOD COMPLEX 45 MIN [id number]. [id number] Diagnos is: ICD-10- CM G20.A1 Hayde on's dis w/o dyskine bud, w/o mention of fluctua tions FLINT,ANDR EW H 01/21 [facility] MOTION FLUOROSCOP Y/SWALLOW [id number] Diagnos is: ICD-10- CM R13.12 Dysphag ia, orophar yngeal phase TOBIAS LEWIS C 02/16 [facility] Outpatient Encounter [id number] NANCY ALEX 02/22 [facility] PSYCH DIAG EVAL W/MED SRVCS [id number]. [id number] Diagnos is: ICD-10- CM G20.A1 Hayde on's dis w/o dyskine bud, w/o mention of fluctua tions BENIGNO FIGUEROA 02/23 [facility] [id number] 02/23 [facility] OFFICE O/P EST MOD 30 MIN [id number] Diagnos is: ICD-10- CM H04.123 Dry eye syndrom e of bilater al lacrima l glands [facility] 03/17 [facility] CMPTR OPHTH IMG OPTIC NERVE [id number] [id number] Diagnos is: ICD-10- CM H40.013 Open angle with borderl ine finding s, low risk, bilater al TONYVIRGILIOBRIANAJessicaANNA T 03/[address] [facility] Outpatient Encounter [id number] [facility] 03/[address] 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 DHEERAJ LEAVITT 05/18 [facility] OFFICE O/P EST MOD 30 MIN [id number] Diagnos is: ICD-10- CM G20.A1 Hayde on's dis w/o dyskine bud, w/o mention of fluctua tions BENIGNO FIGUEROA 05/26 [facility] Outpatient Encounter [id number] NANCY ALEX M 05/26 [facility] Outpatient Encounter [id number] ADAM VENTURA M 05/30 [facility] DIV[facility] OFFICE O/P EST HI 40 MIN [id number] Diagnos is: ICD-10- CM I25.10 Athscl heart disease of [place] coronar y artery w/o ang pctrs ROSS FARRELL B 05/31 [facility] Outpatient Encounter [id number] Diagnos is: ICD-10- CM G20.A1 Hayde on's dis w/o dyskine bud, w/o mention of fluctua tions TRACI JACKSON 12/30 [facility] OFFICE O/P EST MOD 30 MIN [id number] Diagnos is: ICD-10- CM G20.A1 Hayde on's dis w/o dyskine bud, w/o mention of fluctua tions HAO FREITAS RT L III 12/30 [facility] TX SP LANG VOICE COMM INDIV [id number] Diagnos is: ICD-10- CM R13.10 Dysphag ia, unspeci fiTAD Olsen N 12/30 [facility] PT EVAL LOW COMPLEX 20 MIN [id number] Diagnos is: ICD-10- CM G20.A1 Hayde on's dis w/o dyskine bud, w/o mention of fluctua tions SARAI ROWLAND 12/30 [facility] OFFICE O/P EST MOD 30 MIN [id number] Diagnos is: ICD-10- CM G20.A1 Hayde on's dis w/o dyskine bud, w/o mention of fluctua tions BRINDADEMARIO COMFORT RiveraAN 02/01 [facility] Outpatient Encounter [id number] NANCY ALEX 02/01 [facility] DIV[facility]IO N Social History Combined list of available smoking, tobacco, and other social history from Department of Defense and Veterans Affairs facilities. Social History Type Response Date Comment Sour e Tobacco smoking status NHIS VA-TOBACCO FORMER USER 02/23/2024 [facility] History of tobacco use VA-TOBACCO QUIT 1 5 YRS OR MORE 02/23/2024 [facility] History of tobacco use TX-TOBACCO FORMER USER 09/19/2020 [facility] History of tobacco use VA-TOBACCO FORMER USER 03/01/2018 [facility] History of tobacco use QUIT TOBACCO >7 Y EARS AGO 03/01/2018 [facility] History of tobacco use QUIT TOBACCO >7 Y EARS AGO 08/31/2017 [facility] History of tobacco use QUIT TOBACCO >7 Y EARS AGO 01/29/2017 [facility] Plan of Care List of future care activities from Department of [facility] Affairs facilities. Additional future care activities may be listed in the Assessment and Plan section. Date/Time Care Activity Care Activity Detail Facili ty 03/23/2025 AMBULATORY - SURGERY AMBULATORY - SURGERY [facility]
--- OUTSIDE RECORDS SUMMARY | 2025-03-09 11:56 | XMS_ITS | Clinical Summary ---
Author Organization [facility] Address [address] [place] [address] Care Team Providers Care Line Up Machine Operator Name Role Phone Will Mac MD Primary Care Prov ider Kell Berkowitz MD Unavailable [phone] Jitendra Moses MD Unavailable [phone] Ivett Saenz MD Unavailable [phone] Allergies Active Allergy Reactions Criticality Noted Date [...] Continue Miralax We discussed seeing me at [facility] for your Parkinson Disease care. He would like to set up an appointment with me there. He also expresses interest in following here with the excellent care provided by TONY Norris.. Will provide DBS packet Assessment & Plan (10/17/2022 5:36 PM TAX COMPLIANCE AGENT): ASSESSMENT - 72 y.o. 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 We will try mirtazapine since it [...] as addressed to the patient): - Ask coil winding machines set up mechanic about cutting back either lisinopril or propranolol given lightheadedness. - When BPs are controlled, Increase carbidopa/levodopa as directed. - Start mirtazapine. - Start APDA youtube channel exercises. - Could keep tamsulosin in mind but would have to watch for orthostasis. Assessment & Plan (10/18/2020 11:55 AM TAX COMPLIANCE AGENT): ASSESSMENT - 70 y.o. man with Parkinson's [...] this note should be sent to your [facility] physician, Dr. Jitendra Moses: Address: [address] [place] [address] This encounter's total hmqg-vw-ppvm time was 25 minutes. I spent more than 50% of this time in counseling and/or coordination of care as documented in the note. The patient visit started at 1124 and ended at 1154. Greater than 50% of the visit was spent on counseling and coordinating care. Patient was counseled on rationale for increase in carbidopa/levodopa Assessment & Plan (10/07/2019 2:00 PM TAX COMPLIANCE AGENT): - 69 y.o. man with a 3-year [...] HADS. No evidence of daytime drowsiness on Edmonson scale. No evidence of REM Behavior Disorder [...] 08/31/2017 Assessment & Plan (10/26/2020 9:38 AM TAX COMPLIANCE AGENT): Status post mitral valve repair. He has [...] artery disease of n ative artery of [place] heart with stable angina pectoris ([facility]) 08/31/2017 Assessment & Plan (09/14/2024 9:41 AM [...] biopsy. Assessment & Plan (10/26/2020 9:38 AM TAX COMPLIANCE AGENT): No symptoms of myocardial ischemia. Continue aspirin. [...] 5:38 PM CDT): Lipids done at the NH reviewed. They are excellent. Continue rosuvastatin 40 mg daily and Zetia 10 mg daily. Assessment & Plan (10/26/2020 9:41 AM TAX COMPLIANCE AGENT): On chronic lipid lowering therapy with good [...] daily. Assessment & Plan (10/26/2020 9:39 AM TAX COMPLIANCE AGENT): Blood pressure is well controlled. Current medications [...] 03/21/2019 [facility] LIVE 01/29/2017 [facility] Recombinant 12/25/2020,09/21/2020 Surgical History Surgery Date Site/Laterality Comments CORONARY STENT PLACEMENT 07/28/2005 Prox and mid LAD stent MITRAL VALVE REPLACEMENT 07/09/2017 MV repair, CABGx2 CORONARY ARTERY BYPASS GRAFT 07/09/2017 MVrepair, CABGx2 Medical History Medical History Date Comments Hypertension Mitral valve regurgitation Coronary artery disease Atrial fibrillation (HCC) post o p after heart surgery Parkinson disease (HCC) Cancer (HCC) prostate Family History Medical History Relation Name Comments Cancer Father father Heart disease Father father Heart disease Mother mother Parkinsonism Neg Hx Tremor Neg Hx Relation Name Status Comments Father father Mother mother Social History Tobacco Use Types Packs/Day Years [...] on file Legal Sex Male 11:20 AM TAX COMPLIANCE AGENT Gender Identity Not on file Sexual Orientation Not on file 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 Not on file Not on fi le Not on file Obstetrics History Last Filed Vital Signs Vital Sign Reading [...] 09/14/2024 8:52 AM CDT Plan of Treatment Health Maintenance Due Date Last Done Comments Colon Cancer Screening-Colonoscopy 1950 Hepatitis C Screening 1950 DTaP/Tdap/Td Vaccine (1 - Tdap) 1962 Hepatitis B Screening 1969 Abdominal Aortic Aneurysm (A AA) Screen 2016 Well Visit 65+ 2016 Depression Screening 04/18/2023 04/18/2022 Covid-19 Vaccine (2023-2 5 season) 2024 08/20/2021, 01/29/2021, 01/10/2021 Fall Risk Assessment 09/16/2024 09/16/2023 Influenza Vaccine (Season Ended) 2025 07/17/2021, 09/07/2020, 08/20/2018, Additional history exists Pneumococcal vaccine 65+ Completed 03/21/2019, 02/14 Zoster Vaccine Completed 12/25/2020, 04/2020, 01/29/2017 [place] [address] [facility] MEDICARE [facility] MEDICARE [facility] Advance Directives For more information, please contact: [phone] Documents on File Type Date Recorded Patient Quarter Backer Expl anation ADVANCE DIRECTIVE 07/09/2017 Advance Di rective Checklist ADVANCE DIRECTIVE 06/29/2017 Advance Di rective Checklist Care Teams Line Up Machine Operator Relationship Specialty Start Date End Date Will Mac MD [address] [place] [address] PCP - General 02/13/17 Kell Berkowitz MD [address] [place] [address] Consulting Physician Internal Medicine 10/05/19 Jitendra Moses MD [address] [place], [place] [id number] Consulting Physician Family Medicine 10/18/20 Ivett Saenz MD [address] [place] [address] Senior Mechanical Engineer Cardiology 12/31/20
--- OUTSIDE RECORDS SUMMARY | 2025-03-09 11:56 | XMS_ITS ---
Author Name [facility] Address [address] [place] [address] Care Team Providers Care Instantizer Operator Name Role Phone ROSS FARRELL Primary Care Provider Bravo bennett Insurance Providers: All historical and current Section Date Range: From patient's date of to the date document was created. This section includes the names of all active insurance providers for the patient. Insurance Provider Type of Coverage Plan Name Start of Policy Coverage End of Policy Coverage Group Number Member ID Insurance Provider's Telephone Number Policy Gray's Name Patient's Relationship to Policy Gray AARP MED SUPP MEDIGAP PLAN F MEDIC ARE SUPPL EMENT March 16, 2017 PLAN F [id number] [phone] Jose Luis [place] PAT[place] MEDICARE (WNR) MEDICARE (M) PART B March 16, 2017 PART B [id number] Jose Luis [place] PATIENT MEDICARE (WNR) MEDICARE (M) PART A March 16, 2016 PART A [id number] Jose Luis [place] PATIENT Selected Encounter This section includes the information on record at [place] for the Encounter. Date/Time Encounter Type Encounter Description Reason Provider Source Feb 01, 2025 12:30 PM OFFICE O/P EST MOD 30 MIN PSYCHOGERIATRIC - INDIVIDUAL ICD-10-CM G20.A1 Parkinson's dis w/o dyskinesia, w/o mention of fluctuations Meliton SORIA Jessica Encounter Template Text not used by [place] Assessments - Encounter Diagnoses This section includes the primary and secondary diagnoses documented for the Encounter. Date/Time Primary/Secondary Diagnosis Diagnosis Name Provider Source Feb 01, 2025 12:49 PM PRIMARY Parkinson's dis w/o dyskinesia, w/o mention of fluctuations CAMMIE SORIA [facility] Feb 01, 2025 12:49 PM SECONDARY Anxiety disorder, unspecified YANGCAMMIE LUISA [facility] Plan of Treatment: Future Appointments (+ 6 months) and Future Tests (+/- 45 days) The Plan of Treatment section includes future care activities for the [facility] [place] [facility] This section includes future appointments and future orders which are active, pending or scheduled. Future Appointments This section includes appointments that were scheduled to occur 6 months from the date of the Encounter, up to a maximum of 20 appointments. The data comes from all [place] treatment facilities. Appointment Date/Time Appointment Type Appointme nt Facility Name March 23, 2025 08:00 AM AMBULATORY - SURGERY [facility] May 02, 2025 02:30 PM AMBULATORY - MEDICINE [facility] May 17, 2025 09:00 AM AMBULATORY - SURGERY [facility] Aug 04, 2025 12:30 PM AMBULATORY - PSYCHIATRY [facility] Vital Signs: All taken on the encounter date This section contains inpatient and outpatient Vital Signs collected on the date of the Encounter. Date/Time Temperature Pulse Blood Pressure Respiratory Rate SP02 Pain Height Weight Body Mass Index Source Feb 01, 2025 12:36 PM 97.3 101 123/86 20 96 0 [facility] Social History: Smoking Status (Most current) and Tobacco Use (All prior to encounter date) This section includes the most current, and the historical, smoking and tobacco- related health factors from the [place] facility where the Encounter took place. Current Smoking Status This section includes the most current smoking, or tobacco-related health factor, from the [place] facility where the Encounter took place. Date/Time Current Smoking Status Michelle haynes Mar 01, 2018 10:44 AM VA-TOBACCO FORMER USER [facility] Tobacco Use History This section includes a history of the smoking, or tobacco-related health factors, that were collected on or before the date of the Encounter. The data comes from the [place] facility where the Encounter took place. Date/Time Smoking Status/Tobacco Use Comment F acility Mar 01, 2018 10:44 AM VA-TOBACCO QUIT 15 YRS OR MORE [facility] Mar 01, 2018 09:42 AM QUIT TOBACCO >7 YEARS AGO [facility] Aug 31, 2017 09:13 AM QUIT TOBACCO >7 YEARS AGO [facility] Jan 29, 2017 01:06 PM QUIT TOBACCO >7 YEARS AGO [facility] Encounter Notes: All associated encounter notes This section contains the clinical notes associated to the Encounter. Date/Time Encounter Note(s) Provider Source Feb 01, 2025 12:40 PM PSYCHIATRY NOTE: LOCAL TITLE: PSYCHIATRY [facility] STANDARD TITLE: PSYCHIATRY NOTE DATE OF NOTE: FEB 01, 2025@12:40 ENTRY DATE: FEB 01, 2025@12:40:10 AUTHOR: GEE SORIA EXP COSIGNER: URGENCY: STATUS: COMPLETED [facility] - MEDICATION MANAG[facility] Name..................[facility] Age...................74 Sex...................MALE SSN...................[id number] Today's Date..........FEB 01, 2025 Service Connection....Service Connected: Yes (100%) ALLERGIES: LISINOPRIL, OXYBUTYNIN CHLORIDE OUTPATIENT MEDICATIONS: Active Outpatient Medications (excluding Supplies): Issue Date Status Last Fill Active Outpatient Medications Refills Expiration 1) ASPIRIN 81MG EC TAB Qty: 120 for 90 days ACTIVE (S) Issue: 05/31/24 Sig: TAKE ONE TABLET BY MOUTH ONCE A DAY Refills: 0 Last : 02/16/25 TAKE WITH FOOD. Expr : 06/01/25 Indication: FOR CARDIOVASCULAR DISEASE 2) BUSPIRONE HCL 10MG TAB Qty: 135 for 90 days ACTIVE Issue: 05/26/24 Sig: TAKE ONE-HALF TABLET BY MOUTH THREE Refills: 0 Last : 02/10/25 TIMES A DAY DO NOT TAKE WITH GRAPEFRUIT Expr : 05/27/25 JUICE. Indication: FOR ANXIETY 3) CARBAMIDE PEROXIDE 6.5% OTIC SOLN Qty: 30 ACTIVE Issue: 05/31/24 for 30 days Sig: INSTILL 2 DROPS IN BOTH Refills: 0 Last : 07/27/24 EARS TWICE DAILY Expr : 06/01/25 Indication: FOR EAR WAX BLOCKAGE 4) CARBIDOPA 25/LEVODOPA 100MG TAB Qty: 540 for ACTIVE (S) Issue: 09/23/24 90 days Sig: TAKE 2 TABLETS BY MOUTH THREE Refills: 0 Last : 03/30/25 TIMES A DAY Expr : 09/24/25 Indication: FOR PARKINSON DISEASE 5) CARBOXYMETHYLCELLULOSE NA 0.5% OPH SOLN Qty: ACTIVE Issue: 03/17/24 45 for 90 days Sig: INSTILL 1 DROP IN BOTH Refills: 1 Last : 09/03/24 EYES FOUR TIMES A DAY NEEDED Expr : 03/18/25 Indication: FOR DRY EYE(S) 6) GABAPENTIN 100MG CAP Qty: 30 for 30 days ACTIVE Issue: 05/31/24 Sig: TAKE ONE CAPSULE BY MOUTH AT BEDTIME Refills: 0 Last : 08/20/24 Indication: FOR NERVE PAIN Expr : 06/01/25 7) LOSARTAN 100MG TAB Qty: 90 for 90 days Sig: ACTIVE (S) Issue: 05/31/24 TAKE ONE TABLET BY MOUTH ONCE A DAY Refills: 0 Last : 02/16/25 Indication: FOR HIGH BLOOD PRESSURE Expr : 06/01/25 8) PROPRANOLOL HCL 60MG SA CAP Qty: 90 for 90 ACTIVE (S) Issue: 05/31/24 days Sig: TAKE ONE CAPSULE BY MOUTH ONCE A Refills: 0 Last : 02/16/25 DAY Expr : 06/01/25 Indication: FOR HIGH BLOOD PRESSURE 9) ROSUVASTATIN CA 40MG TAB Qty: 90 for 90 days ACTIVE (S) Issue: 05/31/24 Sig: TAKE ONE TABLET BY MOUTH EVERY EVENING Refills: 0 Last : 02/16/25 Indication: FOR HIGH CHOLESTEROL Expr : 06/01/25 10) TAMSULOSIN HCL 0.4MG CAP Qty: 90 for 90 days ACTIVE Issue: 05/18/24 Sig: TAKE ONE CAPSULE BY MOUTH EVERY EVENING Refills: 1 Last : 01/15/25 APPROXIMATELY 30 MINUTES AFTER THE SAME MEAL Expr : 05/19/25 EACH DAY Indication: FOR BENIGN PROSTATIC HYPERPLASIA 11) VIBEGRON 75MG TAB Qty: 90 for 90 days Sig: ACTIVE Issue: 05/18/24 TAKE ONE TABLET BY MOUTH ONCE A DAY Refills: 1 Last : 01/16/25 Indication: FOR OVERACTIVE BLADDER Expr : 05/19/25 Issue Date Status Last Fill Pending Outpatient Medications Refills Expiration 1) BUSPIRONE HCL 10MG TAB Qty: 135 Sig: TAKE PENDING ONE-HALF TABLET BY MOUTH THREE TIMES A DAY Refills: 0 DO NOT TAKE WITH GRAPEFRUIT JUICE. Indication: FOR ANXIETY Start Date Active Non-VA Medications Status Stop Date 1) Non-VA EZETIMIBE 10MG TAB SiMG BY MOUTH ACTIVE ONCE A DAY Indication: FOR HIGH CHOLESTEROL 13 Total Medications PROBLEM LIST: 1) CAD - Coronary artery disease (SNOMED CT 57645904) 2) Essential hypertension (SNOMED CT 38770270) 3) Mixed hyperlipidemia (SNOMED CT 883164148) 4) Impaired glucose tolerance 5) Vitamin D deficiency 6) Parkinson's disease 7) Prostate cancer 8) Exposure to potentially hazardous substance ([facility] [id number]) VITAL SIGNS: Pulse.................101 (02/01/2025 12:36) Temperature...........97.3 F [36.3 C] (02/01/2025 12:36) Blood Pressure........123/86 (02/01/2025 12:36) Pain..................0 (02/01/2025 12:36) Weight................215 lb [97.52 kg] (05/31/2024 14:21) Patient Weight History - Last Four 1. 215.0 lbs. / 97.5 kg. on MAY 31, 2024@14:21:48 2. 214.0 lbs. / 97.1 kg. on MAY 18, 2024@09:33:35 3. 203.0 lbs. / 92.1 kg. on MAY 13, 2023@10:13:28 4. 205.1 lbs. / 93.0 kg. on FEB 11, 2023@09:17:09 LAB VALUES: CBC WBC 7.1 10*3/uL 05/31/2024 15:13 RBC 4.57 10*6/uL 05/31/2024 15:13 HGB 14.5 g/dL 05/31/2024 15:13 HCT 43.9 % 05/31/2024 15:13 MCV 96.1 fL 05/31/2024 15:13 MCH 31.7 pg 05/31/2024 15:13 MCHC 33.0 g/dL 05/31/2024 15:13 RDW 14.6 % 05/31/2024 15:13 PLT 192 10*3/uL 05/31/2024 15:13 MPV 9.6 fL 05/31/2024 15:13 NEUTROPHILS, AUTO % 70 % 05/31/2024 15:13 LYMPHOCYTES, AUTO % 18 % 05/31/2024 15:13 MONOCYTES, AUTO % 7 % 05/31/2024 15:13 EOSINOPHILS, AUTO % 4 % 05/31/2024 15:13 BASOPHILS, AUTO % 0 % 05/31/2024 15:13 NEUTROPHILS, ABSOLUTE 4.93 10*3/uL 05/31/2024 15:13 LYMPHOCYTES, ABSOLUTE 1.28 10*3/uL 05/31/2024 15:13 MONOCYTES, ABSOLUTE 0.51 10*3/uL 05/31/2024 15:13 EOSINOPHILS, ABSOLUTE 0.29 10*3/uL 05/31/2024 15:13 BASOPHILS, ABSOLUTE 0.02 10*3/uL 05/31/2024 15:13 CHEM 7 SODIUM 141 mEq/L 05/31/2024 15:13 POTASSIUM 4.5 mEq/L 05/31/2024 15:13 CHLORIDE 107 mEq/L 05/31/2024 15:13 UREA NITROGEN 19.1 mg/dL 05/31/2024 15:13 CREATININE 1.00 mg/dL 05/31/2024 15:13 CALCIUM 9.6 mg/dL 05/31/2024 15:13 CARBON DIOXIDE 23 mEq/L 05/31/2024 15:13 GLUCOSE 97 mg/dL 05/31/2024 15:13 EGFR (CKD-EPI 2020) 79.47 05/31/2024 15:13 HEPATIC PANEL No data available TRIGLYCERIDES...147 mg/dL (05/31/24 15:13) CHOLESTEROL.....CHOLESTEROL 195 mg/dL 05/31/2024 15:13 TSH.............No TSH (2YR) EO data found LITHIUM.........____ VALPROIC ACID...____ DIAGNOSIS BEING TREATED THIS VISIT: PARKINSON'S DISEASE, ANXIETY NOS. ANY COMPLAINTS/PROBLEMS.......Yes HE CAME WITHHIS AND HE RPEORTED THAT HIS SON HAS MOVED IN WITH HIS FAM[place] THEY GET TO SEE THEM EVERY WEEK. HE IS FRUSTRATED WITHHIS SHAKING HANDS. HE RPEORTS CALM MOOD . NO MARCELINO OR PSYCHOSIS. NOS UI THOUGHTS. NO ACUTE RISK OF HARM TO SELF OR OTHERS AT THIS TIME.MEDS AND LABS REIVEWED. PTSD SYMPTOMS: Patient is not currently having active PTSD symptoms SMOKES...No DRINKS...No DRUGS....No MOOD: MOOD TODAY IS CALM. ACTIVITIES: READ, WATCH TV, TAKE NAPS. CONTACT: Mendy Finn GOAL: STABILISE MOOD ANY MEDICATION SIDE EFFECT....No APPETITE......................Go od SLEEP.........................Fa ir This provider engaged the in shared decision-making/treatment planning. MENTAL STATUS: MOOD/AFFECT.................Norm al MOOD IS CALM TODAY DELUSIONS/HALLUCINATIONS....Abse nt SUICIDAL/AGGRESSIVE.........Abse nt ALERT & ORIENTED X3 WITH GOOD CONCENTRATION........Yes COMMENTS: None NEATLY DRESSED WELL GROOMED WHITE MALE WITH SHAVEN HEAD AND NEAT OUSTACHAE. HE IS CO-OP AND FRIENDLY.HAD GOOD SESSION. MEDICATION CHANGE.............No WILL STAY ON SAME MEDS SUPPORTIVE PSYCHOTHERAPY......Yes WILL SEE ME IN 6 MONTHS OR SOONER IF NEED BE. HAD GOOD SESSION TIME SPENT 20 MINUTES. GAF:No previous GAF entered. Current Gaf: TREATMENT PLAN: Continue with current Treatment Plan Medication Management INSTRUCTIONS GIVEN TO PATIENT/FAMILY: Report medication side effects promptly No alcohol/illicit drug use with medication Needs to be cautious with driving/use of machinery Avoid night-time driving Follow up with Primary Care Provider If symptoms get worse, call clinic or Emergency Room as appropriate /raheem/ Gee Soria M.D. Staff Physician, Psychiatry [facility] Signed: 02/01/2025 12:49 [facility]
--- OUTSIDE RECORDS SUMMARY | 2025-03-09 11:56 | XMS_ITS | Encounter Summary ---
Author Name [facility] [place] Organization [facility] [place] Address [address] [place] [address] Care Team Providers Care Technology Training Associate Name Role Phone ROSS FARRELL Primary Care [...] SUPPL EMENT March 16, 2017 PLAN F [phone] Jose Luis SANTA PATIENT MEDICARE (WNR) MEDICARE (M) PART B March 16, 2017 PART B [id number] Jose Luis [place] PATIENT MEDICARE (WNR) MEDICARE (M) PART A March 16, 2016 PART A [id number] Jose Luis SANTA PATIENT Selected Encounter This section includes the information on record at [place] for the Encounter. Date/Time Encounter Type Encounter Description Reason Provider Source May 18, 2024 09:30 AM OFFICE O/P EST LOW 20 MIN UROLOGY CLINIC ICD-10-CM Z85.46 Personal history of malignant neoplasm of prostate PHILOMENA LEAVITT Encounter Template Text not used by [place] Assessments - Encounter Diagnoses This section includes the primary and secondary diagnoses documented for the Encounter. Date/Time Primary/Secondary Diagnosis Diagnosis Name Provider Source May 31, 2024 07:58 AM PRIMARY Personal history of malignant neoplasm of prostate PHILOMENA LEAVITT [facility] May 31, 2024 07:58 AM SECONDARY Overactive bladder TREEPHILOMENA [facility] Plan of Treatment: Future Appointments (+ 6 months) and Future Tests (+/- 45 days) The Plan of Treatment section includes future care activities for the patient from all [place] [facility]. This section includes future appointments and future orders which are active, pending or scheduled. Future Appointments This section includes appointments that were scheduled to occur 6 months from the date of the Encounter, up to a maximum of 20 appointments. The data comes from all [place] treatment facilities. Appointment Date/Time Appointment Type Appointme nt Facility Name May 26, 2024 08:00 AM AMBULATORY - PSYCHIATRY [facility] May 31, 2024 02:30 PM AMBULATORY - MEDICINE [facility] Active, Pending, and Scheduled Orders This section includes a listing of several types of active, pending, and scheduled orders, including clinic medications orders, diagnostic test orders, procedure orders and consult orders; where the start date of the order is 45 days before the date of the Encounter or 45 days after the date of theEncounter. The data comes from all [place] treatment [facility]. Test Date/Time Test Type Test Details Facility Name May 31, 2024 12:00 AM Laboratory - Chemi stry Order URINALYSIS (STL-PB) URINE SP ONCE [facility] May 31, 2024 12:00 AM Laboratory - Chemi stry Order MICRAL/CREAT PROFILE (STL) URINE SP [facility] Lab Results: +/- 30 days of the encounter This section includes the Chemistry and Hematology Lab Results on record with [place] for the patient. Radiology Reports and Pathology Reports are provided separately, in subsequent sections. Lab Results This section contains the Chemistry/Hematology Results that were resulted 30 days before or 30 daysafter the date of the Encounter. Date/Time Source Result Type Result - Unit Interpretation Reference Range Specimen Type Comment May 31, 2024 03:13 PM [facility] PROST. SPECIFIC AG.(PB-STL) SERUM Specimen Ty pe: SERUM Comment: The listed sex of this patient may not be a typical indication for this test. Therefore, reference ranges or interpretive criteria listed may not be valid. Clinical correlation suggested. Ordering Provider: PHILOMENA LEAVITT Report Released Date/Time: Nov 17, 2023 07:12 AM Reporting Lab: [facility] [address] [facility] [id number] Performing Lab: [facility] #[address] [facility] [id number] PROST. SPECIFIC AG.(PB-STL) 0.804 ng/mL 0.000-4.000 May 31, 2024 03:13 PM [facility] LIPID PANEL (STL) PLASMA Specimen Type: PLASM A Comment: No hemolysis noted. Ordering Provider: ROSS FARRELL Report Released Date/Time: May 31, 2024 03:05 PM Reporting Lab: [facility] #[address] [facility] [address] Performing Lab: [facility] #[address] [facility] [address] CHOLESTEROL 195 mg/dL 0-200 TRIGLYCERIDE 147 mg/dL 0-150 CALCULATED LDL 125 mg/dL See Interp HDL(New) 41 mg/dL > 40 May 31, 2024 03:13 PM [facility] COMPREHENSIVE METABOLIC PANEL PLASMA Specimen Type: PLASMA Comment: No hemolysis noted. Ordering Provider: ROSS FARRELL Report Released Date/Time: May 31, 2024 03:05 PM Reporting Lab: [facility] [facility] [address] Performing Lab: [facility] #[address] [facility] [address] CREATININE 1.00 mg/dL 0.70-1.30 UREA NITROGEN 19.1 mg/dL 9.0-25.0 GLUCOSE 97 mg/dL 72-99 SODIUM 141 meq/L 136-145 POTASSIUM 4.5 meq/L 3.5-5.0 CHLORIDE 107 meq/L 98-107 CARBON DIOXIDE 23 meq/L 22-31 CALCIUM 9.6 mg/dL 8.4-10.4 PROTEIN 7.4 g/dL 6.0-8.6 ALBUMIN 4.3 g/dL 3.4-5.0 TOTAL BILIRUBIN 1.0 mg/dL 0.2-1.2 ALKALINE PHOSPHATASE 92 U/L 40-150 AST/SGOT 16 U/L 5-34 ALT/SGPT 12 U/L 8-40 EGFR (CKD-EPI 2020) 79.47 >60 May 31, 2024 03:13 PM [facility] HGA1C BLOOD Specimen Type: BLOOD No comment entered. Ordering Provider: ROSS FARRELL Report Released Date/Time: May 31, 2024 03:05 PM Reporting Lab: [facility] [address] [place] [address] Performing Lab: [facility] [address] [place] [address] HGA1C 6.0 4.0-6.0 May 31, 2024 03:13 PM [facility] CBC BLOOD Specimen Type: BLOOD No comment entered. Ordering Provider: ROSS FARRELL Report Released Date/Time: May 31, 2024 03:05 PM Reporting Lab: [facility] [address] [place] [address] Performing Lab: [facility] [address] [place] [address] WBC 7.1 10*3/uL 3.6-11.2 RBC 4.57 10*6/uL 4.10-5.70 HGB 14.5 g/dL 13.1-16.8 HCT 43.9 38.2-48.4 MCV 96.1 fL 80.0-100.0 MCH 31.7 pg 27.0-34.0 MCHC 33.0 g/dL 33.0-36.0 PLT 192 10*3/uL 150-400 MPV 9.6 fL 7.5-11.2 RDW 14.6 11.8-15.1 LYMPHOCYTES, AUTO % 18 MONOCYTES, AUTO % 7 NEUTROPHILS, AUTO % 70 EOSINOPHILS, AUTO % 4 BASOPHILS, AUTO % 0 LYMPHOCYTES, ABSOLUTE 1.28 10*3/uL 0.77- 4.50 MONOCYTES, ABSOLUTE 0.51 10*3/uL 0.19-0. 80 NEUTROPHILS, ABSOLUTE 4.93 10*3/uL 2.10- 8.00 EOSINOPHILS, ABSOLUTE 0.29 10*3/uL 0.00- 0.60 BASOPHILS, ABSOLUTE 0.02 10*3/uL 0.00-0. 20 Vital Signs: All taken on the encounter date This section contains inpatient and outpatient Vital Signs collected on the date of the Encounter. Date/Time Temperature Pulse Blood Pressure Respiratory Rate SP02 Pain Height Weight Body Mass Index Source May 18, 2024 09:33 AM 97.5 54 124/81 18 96 0 69 214 32 [facility] Social History: Smoking Status (Most current) and Tobacco Use (All prior to encounter date) This section includes the most current, and the historical, smoking and tobacco- related health factors from the [place] facility where the Encounter took place. Current Smoking Status This section includes the most current smoking, or tobacco-related health factor, from the [place] facility where the Encounter took place. Date/Time Current Smoking Status Comment Ludivina ity Feb 23, 2024 08:33 AM VA-TOBACCO FORMER USER [facility] Tobacco Use History This section includes a history of the smoking, or tobacco-related health factors, that were collected on or before the date of the Encounter. The data comes from the [place] facility where the Encounter took place. Date/Time Smoking Status/Tobacco Use Comment F acility Feb 23, 2024 08:33 AM VA-TOBACCO QUIT 15 YRS OR MORE [facility] Sep 19, 2020 10:31 AM VA-TOBACCO FORMER USER [facility] Sep 19, 2020 10:31 AM VA-TOBACCO QUIT 15 YRS OR MORE [facility] Encounter Notes: All associated encounter notes This section contains the clinical notes associated to the Encounter. 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 Yes APPEARANCE / PERFORMANCE STATUS: A&O x3; robust, comfortable No CREATININE EO data found TOTAL PSA(SO-PB-MA 4.0 ng/mL 01/14/2021 08:42 PROST. SPECIFIC AG.(PB-STL) 2.033 ng/mL 02/11/2023 10:08 PROST. SPECIFIC AG.(PB-STL) 5.286 H* ng/mL 06/17/2021 11:34 PROST. SPECIFIC AG.(PB-STL) 4.018 H* ng/ml 09/21/2020 07:53 UA ABNORMALITIES: No URINALYSIS EO data found ASSESSMENT (DXS AND PROBLEMS) --- 1-hx of prostate cancer >s/p XRT in >PSA down to .5 last month (outside records) >follows with [facility] for this 2-LUTS >on tamsulosin and Gemtesa which helps >still some frequency and urgency PLANS------- ADVICE: 1-hx of prostate cancer >continue following with outside urologist >will follow peripherally, RTC in 1 year 2-LUTS >renewed both tamsulosin and Gemtesa >will RTC once a year for medication renewal and to check in with progress MEDS: Gemtesa and tamsulosin renewed FOLLOW-UP (when/why): RTC in 1 year for f/u and safety visit (MORE INFORMATION) * LABS ------ CREATINENo CREATININE EO data found [facility] URINALYSIS EO data found TOTAL PSA(SO-PB-MA 4.0 ng/mL 01/14/2021 08:42 PROST. SPECIFIC AG.(PB-STL) 2.033 ng/mL 02/11/2023 10:08 PROST. SPECIFIC AG.(PB-STL) 5.286 H* ng/mL 06/17/2021 11:34 PROST. SPECIFIC AG.(PB-STL) 4.018 H* ng/ml 09/21/2020 07:53 --- PAST MEDICAL, SOCIAL, FAMILY HX AND ROS RELEVANT MEDICAL PROBLEMS: 1) CAD - Coronary artery disease (SNOMED CT 42488090) 2) Essential hypertension (SNOMED CT 62741950) 3) Mixed hyperlipidemia (SNOMED CT 277972778) 4) Impaired glucose tolerance 5) Vitamin D deficiency 6) Parkinson's disease 7) Prostate cancer MEDICATIONS: Active Outpatient Medications (including Supplies): Active Outpatient Medications Status ========= 1) BUSPIRONE HCL 10MG TAB TAKE ONE-HALF TABLET BY MOUTH ACTIVE TWICE A DAY FOR ANXIETY DO NOT TAKE WITH GRAPEFRUIT JUICE. 2) CARBIDOPA 25/LEVODOPA 100MG TAB TAKE 2 TABLETS BY ACTIVE MOUTH THREE TIMES A DAY FOR PARKINSON DISEASE 3) CARBOXYMETHYLCELLULOSE NA 0.5% OPH SOLN INSTILL 1 ACTIVE DROP IN BOTH EYES FOUR TIMES A DAY NEEDED 4) TAMSULOSIN HCL 0.4MG CAP TAKE ONE CAPSULE BY MOUTH ACTIVE EVERY EVENING APPROXIMATELY 30 MINUTES AFTER THE SAME MEAL EACH DAY 5) VIBEGRON 75MG TAB TAKE ONE TABLET BY MOUTH ONCE A DAY ACTIVE FOR OVERACTIVE BLADDER Pending Outpatient Medications Status ========= 1) TAMSULOSIN HCL 0.4MG CAP TAKE ONE CAPSULE BY MOUTH PENDING EVERY EVENING APPROXIMATELY 30 MINUTES AFTER THE SAME MEAL EACH DAY 2) VIBEGRON 75MG TAB TAKE ONE TABLET BY MOUTH ONCE A DAY PENDING Active Non-VA Medications Status ========= 1) Non-VA ASPIRIN 81MG EC TAB 81MG BY MOUTH ONCE A DAY ACTIVE 2) Non-VA CARBIDOPA 25/LEVODOPA 100MG TAB 2 TABLETS BY ACTIVE MOUTH THREE TIMES A DAY 3) Non-VA EZETIMIBE 10MG TAB 10MG BY MOUTH ONCE A DAY ACTIVE 4) Non-VA LOSARTAN 100MG TAB 100MG BY MOUTH ONCE A DAY ACTIVE 5) Non-VA MIRTAZAPINE 7.5MG TAB 3.75MG BY MOUTH AT ACTIVE BEDTIME 6) Non-VA PROPRANOLOL HCL 60MG SA CAP 60MG BY MOUTH ONCE ACTIVE A DAY 7) Non-VA ROSUVASTATIN CA 40MG TAB 40MG BY MOUTH EVERY ACTIVE EVENING 8) Non-VA TAMSULOSIN HCL 0.4MG CAP 0.4MG BY MOUTH EVERY ACTIVE EVENING 15 Total Medications -- ----THE MOST RELEVANT INFORMATION IS LOCATED ABOVE THE ARROW * PLEASE BE SURE TO LOOK THERE. --- /raheem/ PHILOMENA LEAVITT Physician Printed Circuit Board Preassembler, Urology Signed: 05/18/2024 10:11 06/28/2024 ADDENDUM STATUS: COMPLETED Patient's PSA resulted as follows: PROST. SPECIFIC AG.(PB-STL) GOLD/RED SST SERUM SP LB #[id number] Collection time: May 31, 2024@15:13 Test Name Result Units Range --------- ------ ----- ----- PSA 0.804 ng/mL 0.000 - 4.000 Comments: Will continue with discussed management plan. /cynthia LEAVITT Physician Printed Circuit Board Preassembler, Urology Signed: 06/28/2024 09:36 [facility]
--- OUTSIDE RECORDS SUMMARY | 2025-03-09 11:56 | XMS_ITS | Encounter Summary ---
Author Name [facility] [place] Address [address] [place] [address] Care Team Providers Care Administrative Medical Director Name Role Phone ROSS FARRELL Primary Care Provider Bravo e Insurance Providers: All historical and current Section [...] SUPPL EMENT March 16, 2017 PLAN F [phone] Jose Luis SANT[place] PATIENT MEDICARE (WNR) MEDICARE (M) PART B March 16, 2017 PART B [id number] Jose Luis SANT[place] PATIENT MEDICARE (WNR) MEDICARE (M) PART A March 16, 2016 PART A [id number] Jose Luis SANTA PATIENT Selected Encounter This section includes the information on record at [place] for the Encounter. Date/Time Encounter Type Encounter Description Reason Provider Source Dec 30, 2024 09:15 AM [place] SP LANG VOICE COMM INDIV SPEECH-LANGUAGE PATHOLOGY ICD-10-CM R13.10 Dysphagia, unspecified YOUNGTADN IHE Encounter Template Text not used by [place] Assessments - Encounter Diagnoses This section includes the primary and secondary diagnoses documented for the Encounter. Date/Time Primary/Secondary Diagnosis Diagnosis Name Provider Source Jan 10, 2025 11:57 AM PRIMARY Dysphagia, unspecified LILLIAN LAWS [facility] Jan 10, 2025 11:57 AM SECONDARY Dysarthria and anarthria LILLIAMLILLIAN [facility] Plan of Treatment: Future Appointments (+ 6 months) and Future Tests (+/- 45 days) The Plan of Treatment section includes future care activities for the patient from all [place] [facility]. This section includes future appointments and future orders which are active, pending or scheduled. Future Appointments This section includes appointments that were scheduled to occur 6 months from the date of the Encounter, up to a maximum of 20 appointments. The data comes from all [place] treatment facilities. Appointment Date/Time Appointment Type Appointme nt Facility Name Feb 01, 2025 12:30 PM AMBULATORY - PSYCHIATRY [facility] March 23, 2025 08:00 AM AMBULATORY - SURGERY [facility] May 02, 2025 02:30 PM AMBULATORY - MEDICINE [facility] May 17, 2025 09:00 AM AMBULATORY - SURGERY [facility] Social History: Smoking Status (Most current) and Tobacco Use (All prior to encounter date) This section includes the most current, and the historical, smoking and tobacco- related health factors from the [place] facility where the Encounter took place. Current Smoking Status This section includes the most current smoking, or tobacco-related health factor, from the [place] facility where the Encounter took place. Date/Time Current Smoking Status Comment Ludivina haynes Feb 23, 2024 08:33 AM VA-TOBACCO FORMER USER [facility] Tobacco Use History This section includes a history of the smoking, or tobacco-related health factors, that were collected on or before the date of the Encounter. The data comes from the [place] facility where the Encounter took place. Date/Time Smoking Status/Tobacco Use Comment F ike Feb 23, 2024 08:33 AM [place]-TOBACCO QUIT 15 YRS OR MORE [facility] Sep 19, 2020 10:31 AM VA-TOBACCO FORMER USER [facility] Sep 19, 2020 10:31 AM [place]-TOBACCO QUIT 15 YRS OR MORE [facility] Encounter Notes: All associated encounter notes This section contains the clinical notes associated to the Encounter. Date/Time Encounter Note(s) Provider Source Dec 30, 2024 11:38 AM SPEECH PATHOLOGY N OTE: LOCAL TITLE: SPEECH PATHOLOGY STL STANDARD TITLE: SPEECH PATHOLOGY NOTE DATE OF NOTE: DEC 30, 2024@11:38 ENTRY DATE: DEC 30, 2024@11:38:10 AUTHOR: LILLIAN LAWS COSIGNER: URGENCY: STATUS: COMPLETED SPEECH-LANGUAGE PATHOLOGY MOVEMENT DISORDER NOTE NAME: LOVE SANTA VISIT DATE: 12/30/24 PERTINENT HISTORY: 1) CAD - Coronary artery disease (SNOMED CT 02253374) 2) Essential hypertension (SNOMED CT 35759981) 3) Mixed hyperlipidemia (SNOMED CT 784768536) 4) Impaired glucose tolerance 5) Vitamin D deficiency 6) Parkinson's disease 7) Prostate cancer Patient seen in neurology this date during movement disorder clinic. He was accompanied to clinic by this . RESPONSE TO EVAL/TREATMENT: VOICE: He has c/o decreased vocal quality, voicing in noisy environments, increased rate of speech, and intelligibility. The patient presents with mobility/range of motion that is within normal limits. He presents today with speech that is 100% intelligible. His speech AMR's are appropriate and within normal limits. His reports he can whisper when fatigued or when in other settings where background noise is present. The BRAKE REPAIRER and patient reviewed compensatory speech strategies to utilize during communication. These included slow rate, exaggerated/over articulation, and increased loudness. We discussed speaking with intent especially when in situations where there is background noise or when he is feeling his voice is fatigued Patient and his were educated on SPEAK OUT! treatment and reported they would touch base with BRAKE REPAIRER if they wish to initiate treatment. At this time, patient reported he is overwhelmed with upcoming appointments. SWALLOWING: Patient denied concerns with swallow function. He did report intermittent dysphagia with pill swallows. We discussed placing pills in puree textures and use of liquid wash. He reported understanding. Patient is consuming regular textures and thin liquids. Denied aspiration concerns. Recent MBS completed with recommendations reviewed this date. BRAKE REPAIRER reviewed the following compensatory swallow strategies with the patient: small bites, small sips, slow rate, liquid/solid alternation, upright during and after PO intake, double/dry swallows, extra sauce/gravy for dry food textures. COGNITION Patient reported his cognitive-linguistic tasks remain stable since last visit. He continues to manage his medications at home. He reported he is utilizing cant miss reminders such as leaving his pills on the counter for reminders. We discussed use of alarms to assist with recall of medication times. EDUCATIONS: Both verbal instruction and written instruction were provided to this patient this date. The patient was receptive and demonstrated understanding to the above education/treatment plan of care. IMPRESSION: Patient is implementing compensatory speech, swallow and cognitive strategies for improved function. DIAGNOSIS: Parkinson's disease, dysarthria, dysphagia PLAN: ST will continue to follow as needed and within Movement Disorder Clinic. TREATMENT GOALS: 1. Patient will identify and implement compensatory speech strategies (loud, slow, exaggerated speech) with 100% intelligibility. 2. Patient will implement compensatory memory strategies for improved recall in current living environment. RECOMMENDATIONS: 1. Utilize compensatory speech strategies (slow rate, exaggerated/over articulation, and increased loudness.) 2. Utilize compensatory memory strategies. 3. Patient will implement compensatory swallow strategies for improved safety and efficiency of swallow function /es/ Lillian Laws MS, CCC-BRAKE REPAIRER Speech Pathologist, Speech Language Pathology Signed: 12/30/2024 13:24 LILLIAN LAWS [facility]
--- OUTSIDE RECORDS SUMMARY | 2025-03-09 11:56 | XMS_ITS ---
Author Organization [facility] Address [address] [place] [address] Care Team Providers Care Blender Helper Name Role Phone Will Mac MD Primary Care Prov ider Kell Berkowitz MD Unavailable [phone] Jitendra Moses MD Unavailable [phone] Ivett Saenz MD Unavailable Active Problems Problem Noted Date Diagnosed Date [...] Continue Miralax We discussed seeing me at [facility] for your Parkinson Disease care. He would like to set up an appointment with me there. He also expresses interest in following here with the excellent care provided by TONY Norris.. Will provide DBS packet Assessment & Plan (10/17/2022 5:36 PM POURER CRANE LADLE): ASSESSMENT - 72 y.o. man with Parkinson's [...] 7.5 mg tab for sleep. - Start MediciNovaA youtInviragen channel exercises and PD Voice Project. - [...] I would like him to call his multiple launch rocket system crewmember about cutting back of stopping one of [...] a bit of social anxiety along with supervisor records change insomnia. We will try mirtazapine since it [...] as addressed to the patient): - Ask multiple launch rocket system crewmember about cutting back either lisinopril or propranolol given lightheadedness. - When BPs are controlled, Increase carbidopa/levodopa as directed. - Start mirtazapine. - Start APDA youtube channel exercises. - Could keep tamsulosin in mind but would have to watch for orthostasis. Assessment & Plan (10/18/2020 11:55 AM POURER CRANE LADLE): ASSESSMENT - 70 y.o. man with Parkinson's [...] this note should be sent to your [place] physician, Dr. Jitendra Moses: Address: [address] [place] [id number] This encounter's total muta-pf-wglu time was 25 minutes. I spent more than 50% of this time in counseling and/or coordination of care as documented in the note. The patient visit started at 1124 and ended at 1154. Greater than 50% of the visit was spent on counseling and coordinating care. Patient was counseled on rationale for increase in carbidopa/levodopa Assessment & Plan (10/07/2019 2:00 PM POURER CRANE LADLE): - 69 y.o. man with a 3-year [...] HADS. No evidence of daytime drowsiness on Ovid scale. No evidence of REM Behavior Disorder [...] 08/31/2017 Assessment & Plan (10/26/2020 9:38 AM POURER CRANE LADLE): Status post mitral valve repair. He has [...] artery disease of n ative artery of [place] heart with stable angina pectoris ([facility]) 08/31/2017 Assessment & Plan (09/14/2024 9:41 AM [...] biopsy. Assessment & Plan (10/26/2020 9:38 AM POURER CRANE LADLE): No symptoms of myocardial ischemia. Continue aspirin. [...] 5:38 PM CDT): Lipids done at the [place] reviewed. They are excellent. Continue rosuvastatin 40 mg daily and Zetia 10 mg daily. Assessment & Plan (10/26/2020 9:41 AM POURER CRANE LADLE): On chronic lipid lowering therapy with good [...] daily. Assessment & Plan (10/26/2020 9:39 AM POURER CRANE LADLE): Blood pressure is well controlled. Current medications [...] on current regimen. No change was made. Current Treatment and Therapy Plans No current plan information found. Past Treatment and Therapy Plans No past plan information found. Lifetime Dose Tracking * Chemical Lifetime Dose Automatic Entry Manual Entr y Fluoro Time 0.3 minutes 0.3 minutes 0 minutes Air kerma at the reference point (Ka,r) 3.597 mGy 3 .597 mGy 0 mGy
--- OUTSIDE RECORDS SUMMARY | 2025-03-09 11:56 | XMS_ITS | Encounter Summary ---
Author Name [facility] [place] [facility] [place] Address [address] [place] [address] Care Team Providers Care Express Clerk Name Role Phone ROSS FARRELL Primary Care [...] SUPPL EMENT March 16, 2017 PLAN F [id number] [phone] Jose Luis [place] PATIENT MEDICARE (WNR) MEDICARE (M) PART B March 16, 2017 PART B [id number] Jose Luis [place] PATIENT MEDICARE (WNR) MEDICARE (M) PART A March 16, 2016 PART A [id number] Jose Luis [place] PATIENT Selected Encounter This section includes the information on record at [place] for the Encounter. Date/Time Encounter Type Encounter Description Reason Provider Source May 31, 2024 02:30 PM OFFICE O/P EST HI 40 MIN PRIMARY CARE/MEDICINE ICD-10-CM I25.10 [place] heart disease of [place] coronary artery w/o ang pctrs NARRROSS Morales IHE Encounter Template Text not used by [place] Assessments - Encounter Diagnoses This section includes the primary and secondary diagnoses documented for the Encounter. Date/Time Primary/Secondary Diagnosis Diagnosis Name Provider Source May 31, 2024 03:07 PM PRIMARY Athscl heart disease of [place] coronary artery w/o ang pctrs SHERLYAndrewROSS [facility] May 31, 2024 03:07 PM SECONDARY Contact with and exposure to other hazardous substances SHERLYAndrewROSS Raman [facility] May 31, 2024 03:07 PM SECONDARY Essential (primary) hypertension SHERLYAndrewROSS Raman [facility] May 31, 2024 03:07 PM SECONDARY Mixed hyperlipidemia BUDROSS [facility] May 31, 2024 03:07 PM SECONDARY Parkinson's dis w/o dyskinesia, w/o mention of fluctuations BUDROSS Lamine [facility] May 31, 2024 03:07 PM SECONDARY Personal history of malignant neoplasm of prostate SHERLYAndrewROSS Lamine [facility] May 31, 2024 03:07 PM SECONDARY Vitamin D deficiency, unspecified BUDROSS [facility] Plan of Treatment: Future Appointments (+ 6 months) and Future Tests (+/- 45 days) The Plan of Treatment section includes future care activities for the patient from all [place] treatmentfacilities. This section includes future appointments and future orders which are active, pending or scheduled. Active, Pending, and Scheduled Orders This section includes a listing of several types of active, pending, and scheduled orders, including clinic medications orders, diagnostic test orders, procedure orders and consult orders; where the start date of the order is 45 days before the date of the Encounter or 45 days after the date of theEncounter. The data comes from all [place] treatment facilities. Test Date/Time Test Type Test Details Facility Name May 31, 2024 12:00 AM Laboratory - Chemi stry Order URINALYSIS (STL-PB) URINE SP ONCE [facility] May 31, 2024 12:00 AM Laboratory - Chemi stry Order MICRAL/CREAT PROFILE (STL) URINE SP [facility] Lab Results: +/- 30 days of the encounter This section includes the Chemistry and Hematology Lab Results [facility] record with [facility] for the [facility]. Radiology Reports and Pathology Reports are provided separately, in subsequent sections. Lab Results This section contains the Chemistry/Hematology Results that were resulted 30 days before or 30 daysafter the date of the Encounter. Date/Time Source Result Type Result - Unit Interpretation Reference Range Specimen Type Comment May 31, 2024 03:13 PM [facility] PROST. SPECIFIC AG.(PB-STL) SERUM Specimen Ty pe: SERUM Comment: The listed sex of this patient may not be a typical indication for this test. Therefore, reference ranges or interpretive criteria listed may not be valid. Clinical correlation suggested. Ordering Provider: PHILOMENA LEAVITT Report Released Date/Time: Nov 17, 2023 07:12 AM Reporting Lab: [facility] [address] [place] [address] Performing Lab: [facility] [address] [place] [address] PROST. SPECIFIC AG.(PB-STL) 0.804 ng/mL 0.000-4.000 May 31, 2024 03:13 PM [facility] LIPID PANEL (STL) PLASMA Specimen Type: PLASM A Comment: No hemolysis noted. Ordering Provider: ROSS FARRELL Report Released Date/Time: May 31, 2024 03:05 PM Reporting Lab: [facility] [address] [place] [address] Performing Lab: [facility] [address] [place] [address] CHOLESTEROL 195 mg/dL 0-200 TRIGLYCERIDE 147 mg/dL 0-150 CALCULATED LDL 125 mg/dL See Interp HDL(New) 41 mg/dL > 40 May 31, 2024 03:13 PM [facility] COMPREHENSIVE METABOLIC PANEL PLASMA Specimen Type: PLASMA Comment: No hemolysis noted. Ordering Provider: ROSS FARRELL Report Released Date/Time: May 31, 2024 03:05 PM Reporting Lab: [facility] [address] [place] [id number] Performing Lab: [facility] [facility] [id number] CREATININE 1.00 mg/dL 0.70-1.30 UREA NITROGEN 19.1 [...] 79.47 >60 May 31, 2024 03:13 PM [facility] HGA1C BLOOD Specimen Type: BLOOD No comment entered. Ordering Provider: ROSS FARRELL Report Released Date/Time: May 31, 2024 03:05 PM Reporting Lab: [facility] [address] [facility] [address] Performing Lab: [facility] [address] [place] [phone] HGA1C 6.0 4.0-6.0 May 31, 2024 03:13 PM [facility] CBC BLOOD Specimen Type: BLOOD No comment entered. Ordering Provider: ROSS FARRELL Report Released Date/Time: May 31, 2024 03:05 PM Reporting Lab: [facility] [address] [facility] [phone] Performing Lab: [facility] [address] [place] [phone] WBC 7.1 10*3/uL 3.6-11.2 RBC 4.57 10*6/uL [...] Height Weight Body Mass Index Source May 31, 2024 02:22 PM 138/76 [facility] May 31, 2024 02:21 PM 98.2 75 152/91 18 95 0 215 32 [facility] N Social History: Smoking Status (Most current) and Tobacco Use (All prior to encounter date) This section includes the most current, and the historical, smoking and tobacco- related health factors from the [place] facility where the Encounter took place. Current Smoking Status This section includes the most current smoking, or tobacco-related health factor, from the [place] facility where the Encounter took place. Date/Time Current Smoking Status Comment Ludivina haynes Mar 01, 2018 10:44 AM [facility]-TOBACCO FORMER USER [facility] Tobacco Use History This section includes a history of the smoking, or tobacco-related health factors, that were collected on or before the date of the Encounter. The data comes from the [place] facility where the Encounter took place. Date/Time Smoking Status/Tobacco Use Comment Veronica ramires Mar 01, 2018 10:44 AM [place]TO[place] QU[place] 15 YRS OR MORE [facility] Mar 01, 2018 09:42 AM QUIT TOBACCO >7 YEARS AGO [facility] Aug 31, 2017 09:13 AM QUIT TOBACCO >7 YEARS AGO [facility] Jan 29, 2017 01:06 PM QUIT TOBACCO >7 YEARS AGO [facility] Encounter Notes: All associated encounter notes This section contains the clinical notes associated to the Encounter. Date/Time Encounter Note(s) Provider Source May 31, 2024 02:33 PM PRIMARY CARE NOTE: LOCAL TITLE: PRIMARY CARE PROVIDER ESTABLISHED VISIT ST STANDARD TITLE: PRIMARY CARE NOTE DATE OF NOTE: MAY 31, 2024@14:33 ENTRY DATE: MAY 31, 2024@14:33:14 AUTHOR: ROSS FARRELL EXP COSIGNER: URGENCY: STATUS: COMPLETED PRIMARY CARE PROVIDER ESTABLISHED VISIT ST Has ADDENDA [place] is a 74 year old WHITE MALE with past medical history of PMH: 1) CAD - Coronary artery disease (SNOMED CT 24286331) 2) Essential hypertension (SNOMED CT 97243557) 3) Mixed hyperlipidemia (SNOMED CT 633666067) 4) Impaired glucose tolerance 5) Vitamin D deficiency 6) Parkinson's disease 7) Prostate cancer History of present illness Wax buildup in the right ear psa - prostrate cancer -radiation treatment. 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 DATA Review Measurement DT TEMP PULSE RESP BP HT WT F(C) IN(CM) LB(KG)[BMI] ---- ----- ---- -- ------ 05/18/2024 09:33 97.5(36.4) 54 18 124/81 69.0(175) 214(97.1)[32*] 05/13/2023 10:13 98.0(36.7) 58 19 128/83 203(92.1)[30*] Measurement DT CVP POx CG CMH20(MMHG) (L/MIN)(%) IN(CM) ------ 05/18/2024 09:33 96 05/13/2023 10:13 94 Measurement DT Pain ---- 05/18/2024 09:33 0 05/13/2023 10:13 0 31.7 LABS: No CREATININE EGFR EO data found No HEMOGLOBIN EO data found No HEMOGLOBIN A1C EO data found No LIPID PANEL EO data found No data available Medication reconciliation done General: pleasant, well appearing adult male in no apparent distress HEENT: speech fluent and clear, hearing grossly intact Neck: no carotid bruits Heart: regular rate and rhythm; no murmurs, rubs, or gallops Lungs: respirations regular and non-labored; CTA BL; no wheezes, rhonchi, or rales Abdomen: soft, nontender, nondistended, bowel sounds normal Extremities: warm, well-perfused; no clubbing, cyanosis, or edema Skin: no rashes or lesions noted; good turgor Neuro: A&O x 3, gait steady and normal-based Psych: appropriate mood and affect Assessment and plan #1 cerumen impaction right ear- soft wax #2 BMI 30 Metabolic syndrome #3 Parkinson's disease #4 hypertension blood pressure well controlled 138/76 #5 hypercholesterolemia on rosuvastatin patient receives Zetia in the community Lipid profile ordered #6 prostrate cancer in 2019 s/p radiation - complicated by incontinence - edvin liners #7 elevated PSA patient had an MRI in the community and has a prostate biopsy scheduled for September 16 - Shared medical decision making occurred during this visit with the . - Questions answered and [place] is agreeable with treatment plan. - All new medications discussed/reviewed with /caregiver including side effects/teratogenic side effects. Advised to keep all scheduled medical and follow-up appointments. was advised to seek medical treatment if symptoms do not improve and/or worsens. Time spent with patient 40 minutes Follow-up visit 11 months HEALTH MAINTENANCE: CRC screen -No data available for: COLONOSCOPY CONSULT REPORT STL age 45 - 75 for average risk TOTAL PSA(SO-PB-MA 4.0 ng/mL 01/14/2021 08:42 PROST. SPECIFIC AG.(PB-STL) 2.033 ng/mL 02/11/2023 10:08 PROST. SPECIFIC AG.(PB-STL) 5.286 H* ng/mL 06/17/2021 11:34 PROST. SPECIFIC AG.(PB-STL) 4.018 H* ng/ml 09/21/2020 07:53 ADMINISTERED Immunization Series Date Facility Reaction Info COVID-19 (PFIZER), MRNA, LNP-S, * 3 08/20/2021 [facility]* <C> COVID-19 (PFIZER), MRNA, LNP-S, * 2 01/29/2021 [facility] * COVID-19 (PFIZER), MRNA, LNP-S, * 1 01/10/2021 [facility]* INFLUENZA, HIGH-DOSE, TRIVALENT,* 08/31/2017 . [facility]* INFLUENZA, SPLIT VIRUS, QUADRIVA* 08/15/2019 . [facility]* INFLUENZA, SPLIT VIRUS, QUADRIVA* 08/20/2018 . [facility]* INFLUENZA, UNSPECIFIED FORMULATI* Pcp INFLUENZA, UNSPECIFIED FORMULATI* 09/07/2020 Private INFLUENZA, UNSPECIFIED FORMULATI* Private dr PNEUMOCOCCAL CONJUGATE PCV 13 03/01/2018 [facility]* PNEUMOCOCCAL POLYSACCHARIDE PPV23 03/21/2019 [facility]* TDAP 09/21/2019 [facility]* <C> ZOSTER LIVE 01/29/2017 [facility]* ZOSTER RECOMBINANT 2 12/25/2020 [facility]* <> ZOSTER RECOMBINANT 1 09/21/2020 [facility]* CONTRAINDICATED No data available REFUSED ======= No data available <> ZOSTER RECOMBINANT 12/25/2020 [facility] <C> See the Detailed Immunizations Health Summary Component[DIM] for Comments * Value is truncated; see the Detailed Immunizations Health Summary Component[DIM] for complete text Annual (Male)-The patient was counseled regarding the appropriate use of alcohol, screening procedures and recommended schedule for colonoscopy, psa, cholesterol, thyroid and diabetes screening, prevention of dental and periodontal disease, diet, regular sustained exercise for at least 30 minutes 3- 4 times per week, prostate cancer screening, regular use of seat belts. Recommend dilated eye exam and glaucoma screening every 2 years or as indicated by ophthalmology Discussed and recommended Whole Health modalities include Coaching, Well- Being activities andclasses, Chiropractic, Full Body Acupuncture, Integrative Medicine,Holistic RN Care, Health Behavior Specialists, and Functional Nutrition RETURN TO CLINIC: Return to Clinic order placed SUMMARY STATEMENT: Plan of care has been discussed with including expected therapeutic benefits and potential side effects of prescribed medication and treatments. [place] verbalizes understanding and is in agreement with the plan of care. 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 /cynthia FARRELL M.D. PRIMARY CARE PHYSICIAN Signed: 05/31/2024 15:07 06/16/2024 ADDENDUM STATUS: COMPLETED Toxic Exposure Screening Follow-Up: Exposure Concern(s): 05/31/2024 Agent [place] - Toxic Exposure Concern Follow-up Question(s): 05/31/2024 Benefits/Claims Questions - Toxic Exposure Concern Health/Medical Questions - Toxic Exposure Concern Registry Questions - Toxic Exposure Concern [facility] Enrollment Questions - Toxic Exposure Concern /caregiver has health or medical concerns related to their concern of environmental exposure. Concern: Prostate cancer The following connections were provided to the [place]/caregiver: Consult/Referral to Registry Program /cynthia FARRELL M.D. PRIMARY CARE PHYSICIAN Signed: 06/16/2024 12:25 ROSS FARRELL [facility] May 31, 2024 02:23 PM NURSING NOTE: LOCAL TITLE: V15 PACT FACE TO FACE NOTE ST STANDARD TITLE: NURSING NOTE DATE OF NOTE: MAY 31, 2024@14:23 ENTRY DATE: MAY 31, 2024@14:23:06 AUTHOR: MIKEY VENTURA COSIGNER: URGENCY: STATUS: COMPLETED Provider Visit: Patient Identifiers : Full Name Date of Reason for visit: Established Follow-Up Mode of Arrival: Ambulatory Allergy Review: LISINOPRIL, OXYBUTYNIN CHLORIDE Allergy list reviewed and remains current. Recent Vital Signs: Temperature: 98.2 F [36.8 C] (05/31/2024 14:21) Pulse: 75 (05/31/2024 14:21) Respiration: 18 (05/31/2024 14:21) B/P: 138/76 (05/31/2024 14:22) Pain: 0 (05/31/2024 14:21) Wt: 215 lb [97.52 kg] (05/31/2024 14:21) Ht: 69 in [175.3 cm] (05/18/2024 09:33) BMI: 31.8 POX: 95% (05/31/2024 14:21) Would you like to discuss any personal problem, family problem, alcohol use, drug use, or a mental or emotional illness? No Contact provided Primary Care phone number and encouraged to call if any questions or concerns. Review that after hours nurse line [phone] and emergency room are available 08/06 for patient use. Contact verbalized good understanding. Sexual Orientation: The patient thinks of their sexual orientation as: Straight or Heterosexual Toxic Exposure Screening: The [place]/caregiver was asked if they believe the [place] experienced any toxic exposure(s), such as Airborne Hazards and Open Burn Pit, [place] War related exposures, Agent [place], Radiation, contaminated water at [place] or other such exposures, while serving in the [employer]. [place]/caregiver believes the was exposed to the following while serving in the [employer]: [place]: /caregiver was made aware of educational resources that includes information on the Registry Program, presumptive conditions and how to file a claim. Printed information was offered and provided if desired. Health/Medical Questions All patients who report a health/medical concern will receive follow-up from a clinician. For urgent or emergent concerns, they were advised to follow local facility policy. Benefits/Claims Questions /caregiver was informed of local point of contact. [place] Health Care Enrollment and Eligibility Questions [place]/caregiver was informed of local point of contact. Registry Questions /caregiver was informed of local point of contact. Contact information for local resources: [facility] Registry Exam Program: [phone] Eligibility: [phone] JEANETH [id number] Toxic Exposure Screening Follow-Up reminder is needed. Name of person notified: bud COVID-19 Immunization: Refused Pfizer Monovalent COVID-19 vaccine Immunization: COVID-19 (PFIZER), MRNA, LNP-S, PF, ROYCE-SUCROSE, 30 MCG/0.3 ML (AGES 12+ YEARS) Refusal Reason: PATIENT DECISION Patient refuses all immunization(s) in the COVID-19 group Date Documented: 05/31/24 14:24 Influenza Immunization: No influenza vaccination was received during the recent influenza season. Learning Assessment: - * This patient's learning ABILITIES, BARRIERS to learning, CULTURAL and CHURCH beliefs, and learning PREFERENCES were assessed. Following are findings of note: Patient reads well. Patient has the following hearing/auditory barrier(s) to consider when teaching: Hard of hearing., Othertinnitus Patient has the following speech barrier to consider when teaching: No speech barrier identified. LANGUAGE Patient reports that Martiniquais is preferred language for healthcare. Patient has the following language barrier to consider when teaching: No language barrier has been identified. Patient has the following vision barrier(s) to consider when teaching: The following barrier has been identified:, Requires glasses/contacts for reading Patient has the following dexterity/mobility barrier(s) to consider when teaching: The following barrier has been identified., OtherParkinson's Patient has the following cognitive/memory barrier(s) to consider when teaching: No cognitive/memory barrier has been identified. Patient has the following emotional/psychological barrier(s) to consider when teaching: The following barrier has been identified., Otheranxiety Patient has the following social support deficit(s) to consider when teaching: No social support issues have been identified. Patient reports learning preference is to refer to handouts. Patient reports learning preference is attending one-to-one or group demonstrations. [facility] Whole Health - PHP MAP: PERSONAL HEALTH PLAN INVENTORY & MAP 's Response: family SHARED GOALS get Parkinson medication corrected /es/ MIKEY VENTURA LPN LICENSED PRACTICAL NURSE Signed: 05/31/2024 14:26 MIKEY VENTURA [facility]
--- OUTSIDE RECORDS SUMMARY | 2025-03-09 11:56 | XMS_ITS | Encounter Summary ---
Author Name [facility] [place] [facility] [place] Address [address] [place] [address] Care Team Providers Care Senior Programmer Name Role Phone ROSS FARRELL Primary Care [...] SUPPL EMENT March 16, 2017 PLAN F [id number] [phone] Jose Luis SANTA PATIENT MEDICARE (WNR) MEDICARE (M) PART B March 16, 2017 PART B [id number] Jose Luis SANT[place] PATIENT MEDICARE (WNR) MEDICARE (M) PART A March 16, 2016 PART A [id number] Jose Luis SANTA PATIENT Selected Encounter This section includes the information on record at CT for the Encounter. Date/Time Encounter Type Encounter Description Reason Provider Source Dec 30, 2024 09:00 AM OFFICE O/P EST MOD 30 MIN NEUROLOGY ICD-10-CM G20.A1 Parkinson's dis w/o dyskinesia, w/o mention of fluctuations MARIBEL FREITAS [facility] Encounter Template Text not used by CT Assessments - Encounter Diagnoses This section includes the primary and secondary diagnoses documented for the Encounter. 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 This section includes future appointments and future orders which are active, pending or scheduled. Future Appointments This section includes appointments that were scheduled to occur 6 months from the date of the Encounter, up to a maximum of 20 appointments. The data comes from all CT treatment facilities. Appointment Date/Time Appointment Type Appointme nt Facility Name Feb 01, 2025 12:30 PM AMBULATORY - PSYCHIATRY [facility] March 23, 2025 08:00 AM AMBULATORY - SURGERY [facility] May 02, 2025 02:30 PM AMBULATORY - MEDICINE [facility] May 17, 2025 09:00 AM AMBULATORY - SURGERY [facility] Social History: Smoking Status (Most current) and Tobacco Use (All prior to encounter date) This section includes the most current, and the historical, smoking and tobacco- related health factors from the CT facility where the Encounter took place. Current Smoking Status This section includes the most current smoking, or tobacco-related health factor, from the CT facility where the Encounter took place. Date/Time Current Smoking Status Comment Ludivina haynes Feb 23, 2024 08:33 AM VA-TOBACCO FORMER USER [facility] Tobacco Use History This section includes a history of the smoking, or tobacco-related health factors, that were collected on or before the date of the Encounter. The data comes from the [place] facility where the Encounter took place. Date/Time [...] Encounter Note(s) Provider Source Dec 30, 2024 09:54 AM NEUROLOGY OUTPATIENT NOTE: LOCAL TITLE: NEUROLOGY OUTPATIENT FOLLOW UP ST STANDARD TITLE: NEUROLOGY OUTPATIENT NOTE DATE OF NOTE: DEC 30, 2024@09:54 ENTRY DATE: DEC 30, 2024@09:54:52 AUTHOR: MARIBEL FREITAS III EXP COSIGNER: URGENCY: STATUS: COMPLETED ID: 74 year old MALE h/o HTN, HLD, preDM, CAD, vitamin D deficiency, prostate cancer s/p radiation therapy, +AO, with Parkinson Disease. INTERVAL HISTORY: LCV 01/22/24. He reports stable motor symptoms. See ROS below. PD Meds: C/L 25/100 mg 3 tabs 2x/day (Rx for 2 tabs 3x/day) at 5-6am/6-7pm (bedtime). No kicking in, no wearing off per patient, but noticable by , no side effects. Other Relevant VA Meds: buspirone gabapentin vibegron Non-VA Meds: ezetimibe REVIEW OF SYSTEMS: Cognition: +forgetfulness, often remembers later Psych: +anxiety, sees Geropsych, endorses +AH (vague mumbling, knocks on the door), with insight, not overly bothersome Sleep: +nocturia, awakens 2-3x/night Bowel/bladder/autonomic: +urinary urgency/frequency, on vibegron, also has prostate problems and strictures from radiation therapy, sees non-VA Urology Speech/swallow/siallorhea: voice quieter, see SCHO[employer] A[employer]LET[employer] DIRECTOR evaluation from today Other: As per HPI, otherwise negative review of constitutional and neurologic symptoms. ALLERGIES: LISINOPRIL, OXYBUTYNIN CHLORIDE MEDICATIONS: Active Outpatient Medications (including Supplies): Active Outpatient Medications Status 1) ASPIRIN 81MG EC TAB TAKE ONE TABLET BY MOUTH ONCE A DAY ACTIVE (S) TAKE WITH FOOD. Indication: FOR CARDIOVASCULAR DISEASE 2) BUSPIRONE HCL 10MG TAB TAKE ONE-HALF TABLET BY MOUTH THREE ACTIVE (S) TIMES A DAY DO NOT TAKE WITH GRAPEFRUIT JUICE. Indication: FOR ANXIETY 3) CARBAMIDE PEROXIDE 6.5% OTIC SOLN INSTILL 2 DROPS IN BOTH ACTIVE EARS TWICE DAILY Indication: FOR EAR WAX BLOCKAGE 4) CARBIDOPA 25/LEVODOPA 100MG TAB TAKE 2 TABLETS BY MOUTH ACTIVE (S) THREE TIMES A DAY Indication: FOR PARKINSON DISEASE 5) CARBOXYMETHYLCELLULOSE NA 0.5% OPH SOLN INSTILL 1 DROP IN ACTIVE BOTH EYES FOUR TIMES A DAY NEEDED Indication: FOR DRY EYE(S) 6) GABAPENTIN 100MG CAP TAKE ONE CAPSULE BY MOUTH AT BEDTIME ACTIVE Indication: FOR NERVE PAIN 7) LOSARTAN 100MG TAB TAKE ONE TABLET BY MOUTH ONCE A DAY ACTIVE (S) Indication: FOR HIGH BLOOD PRESSURE 8) POISE PAD,MODERATE ABSORBENCY USE/APPLY 1 PAD TO AFFECTED ACTIVE AREA(S) ONCE A DAY - FEMALES ONLY Indication: FOR INCONTINENCE 9) PROPRANOLOL HCL 60MG SA CAP TAKE ONE CAPSULE BY MOUTH ONCE A ACTIVE (S) DAY Indication: FOR HIGH BLOOD PRESSURE 10) ROSUVASTATIN CA 40MG TAB TAKE ONE TABLET BY MOUTH EVERY ACTIVE (S) EVENING Indication: FOR HIGH CHOLESTEROL 11) TAMSULOSIN HCL 0.4MG CAP TAKE ONE CAPSULE BY MOUTH EVERY ACTIVE (S) EVENING APPROXIMATELY 30 MINUTES AFTER THE SAME MEAL EACH DAY Indication: FOR BENIGN PROSTATIC HYPERPLASIA 12) VIBEGRON 75MG TAB TAKE ONE TABLET BY MOUTH ONCE A DAY ACTIVE (S) Indication: FOR OVERACTIVE BLADDER Active Non-VA Medications Status 1) Non-VA CARBIDOPA 25/LEVODOPA 100MG TAB 2 TABLETS BY MOUTH ACTIVE THREE TIMES A DAY Indication: FOR PARKINSON DISEASE 2) Non-VA EZETIMIBE 10MG TAB 10MG BY MOUTH ONCE A DAY ACTIVE Indication: FOR HIGH CHOLESTEROL 14 Total Medications Most Recent Vital Signs: Temperature: 98.2 F [36.8 C] (05/31/2024 14:21) Blood Pressure: 138/76 (05/31/2024 14:22) Pulse: 75 (05/31/2024 14:21) Respirations: 18 (05/31/2024 14:21) Pain: 0 (05/31/2024 14:21) Weight: 215 lb [97.52 kg] (05/31/2024 14:21) BMI: 31.8 Meds at 5am, exam at 10a PHYSICAL EXAM: General: Well-appearing MALE in no acute distress. Mental Status: Awake, Alert. Oriented . Language expression and comprehension intact. Memory, concentration, and insight intact. Cranial Nerves: PERRL. EOMI, Face symmetric. Hearing intact to conversation. Palate elevates symmetrically. Tongue midline. No dysarthria. Motor: Normal bulk. Moves all extremities well. Coordination: No dysmetria on [id number]. Station/Gait: rises from chair using arms; stooped posture;shortened stride length, dereased arm swing. 2-step retropulsion on pull test, but recovered unaided. No freezing. Walks without use of assistive device for exam. See PT evaluation from today for more details. Extrapyramidal: Rigidity: mild rigidity arms, mild rigidity bilateral legs Bradykinesia: slight hypophonia, mild hypomimia; bilateral mild bradykinesia with FFMs, HGs, bilateral mild/mod bradykinesia with HTs. Tremor: near-constant bilateral L>R arm rest tremor; no postural tremor; slight L arm kinetic tremor. Dyskinesia: none observed. Dystonia: none observed IMPRESSION: 74 year old MALE h/o HTN, HLD, preDM, CAD, vitamin D deficiency, prostate cancer s/p radiation therapy, +AO, with Parkinson Disease, previously followed at the [facility]. Examination shows bilateral asymmetric parkinsonism with bilateral rest tremor. SLUMS /30 in 12/2023. The history and examination provide evidence for idiopathic Parkinson Disease. There has been a response to levodopa. Nonmotor features include cognitive dysfunction, some mild auditory hallucinations, anxiety, OAB. RECOMMENDATIONS: 1. Continue carbidopa/levodopa 25/100mg - okay to take 3 tabs 2x/day, but recommend trying 2 tabs 3x/day again. Does can be adjusted in sarahy future based on his response. 2. f/u MH-ART/Geropsychiatry for management of anxiety. 3. I recommend regular cardiovascular exercise, as tolerated. Follow-up: 12 months, or sooner if needed The patient was instructed to go to ER if new symptoms develop, to call if any questions arise or if side effects to prescribed medication develop. I spent 30 minutes in total time in the care of the patient, including review of records, obtaining history, performing a medically appropriate examination, counseling and educating the patient/family/caregiver, ordering medications, placing referrals, communicating with other health respiratory care specialist, documenting clinical information, and coordinating care. /raheem/ MARIBEL FREITAS III STAFF PHYSICIAN, NEUROLOGY Signed: 01/01/2025 16:34 MARIBEL FREITAS III [facility]
--- OUTSIDE RECORDS SUMMARY | 2025-03-09 11:56 | XMS_ITS | Encounter Summary ---
Author Name [facility] [place] Address [address] [place] [address] Care Team Providers Care Flake Or Shred Roll Operator Name Role Phone ROSS FARRELL Primary [...] SUPPL EMENT March 16, 2017 PLAN F [id number] [phone] Jose Luis SANTA PATIENT MEDICARE (WNR) MEDICARE (M) PART B March 16, 2017 PART B [id number] Jose Luis SANTA PATIENT MEDICARE (WNR) MEDICARE (M) PART A March 16, 2016 PART A [id number] Jose Luis SANTA PATIENT Selected Encounter This section includes the information on record at [place] for the Encounter. Date/Time Encounter Type Encounter Description Reason Provider Source March 17, 2024 08:00 AM OFFICE O/P EST MOD 30 MIN OPTOMETRY ICD-10-CM H04.123 Dry eye syndrome of bilateral lacrimal glands KATIE SHEETS Encounter Template Text not used by [place] Assessments - Encounter Diagnoses This section includes the primary and secondary diagnoses documented for the Encounter. Date/Time Primary/Secondary Diagnosis Diagnosis Name Provider Source March 24, 2024 07:13 PM PRIMARY Dry eye syndrome of bilateral lacrimal glands KATIE SHEETS [facility] March 24, 2024 07:13 PM SECONDARY Combined forms of age-related cataract, bilateral [facility] March 24, 2024 07:13 PM SECONDARY Open angle with borderline findings, low risk, bilateral ЕКАТЕРИНА SHEETSJILL [facility] March 24, 2024 07:13 PM SECONDARY Presbyopia [facility] Plan of Treatment: Future Appointments (+ 6 months) and Future Tests (+/- 45 days) The Plan of Treatment section includes future care activities for the patient [facility] [place] [facility]. This section includes future appointments and future orders which are active, pending or scheduled. Future Appointments This section includes appointments that were scheduled to occur 6 months from the date of the Encounter, up to a maximum of 20 appointments. The data comes from all [place] treatment facilities. Appointment Date/Time Appointment Type Appointme nt Facility Name May 18, 2024 09:30 AM AMBULATORY - SURGERY [facility] May 26, 2024 08:00 AM AMBULATORY - PSYCHIATRY [facility] May 31, 2024 02:30 PM AMBULATORY - MEDICINE [facility] Active, Pending, and Scheduled Orders This section includes a listing of several types of active, pending, and scheduled orders, including clinic medications orders, diagnostic test orders, procedure orders and consult orders; where the start date of the order is 45 days before the date of the Encounter or 45 days after the date of theEncounter. The data comes from all [place] treatment [facility]. Test Date/Time Test Type Test Details Facility Name Mar 08, 2024 12:00 AM Laboratory - Chemi stry Order OCCULT BLOOD FIT X1 SCREEN ([facility] ONLY) STOOL FECES SP [facility] Social History: Smoking Status (Most current) and Tobacco Use (All prior to encounter date) This section includes the most current, and the historical, smoking and tobacco- related health factors from the [place] facility where the Encounter took place. Current Smoking Status This section includes the most current smoking, or tobacco-related health factor, from the [place] facility where the Encounter took place. Date/Time Current Smoking Status Comment Ludivina haynes Mar 01, 2018 10:44 AM VA-TOBACCO FORMER USER [facility] Tobacco Use History This section includes a history of the smoking, or tobacco-related health factors, that were collected on or before the date of the Encounter. The data comes from the [place] facility where the Encounter took place. Date/Time Smoking Status/Tobacco Use Comment F acility Mar 01, 2018 10:44 AM PA-TOBACCO QUIT 15 YRS OR MORE [facility] Mar 01, 2018 09:42 AM QUIT TOBACCO >7 YEARS AGO [facility] Aug 31, 2017 09:13 AM QUIT TOBACCO >7 YEARS AGO [facility] Jan 29, 2017 01:06 PM QUIT TOBACCO >7 YEARS AGO [facility] Radiology Reports: +/- 30 days of the encounter Radiology Reports For cases when an order for radiology services may have been completed prior to the date of the Encounter, the report list includes the Radiology Reports that were completed up to 30 days before dateof the Encounter. For cases when an order for radiology services may have been completed after the date of the Encounter, the report list also includes the Radiology Reports that were completed up to30 days after date of the Encounter. The data comes from all [facility]. Date/Time Radiology Report Provider Source Feb 17, 2024 09:05 AM ESOPHAGUS (MODIFIE D BARIUM SWALLOW): LOVE SANTA CHARU [id number] -[id number] M Exm Date: FEB 17, 2024@09:05 Req Phys: FELICIANO LEWIS Pat Loc: [facility] (Req'g Img Loc: [facility] SUITE Service: Unknown (Case [id number] COMPLETE) ESOPHAGUS (MODIFIED BARIUM SWALL(RAD Detailed) CPT:69440 Contrast Media : Barium Reason for Study: Dysphagia Clinical History: Report Status: Verified Date Reported: FEB 17, 2024 Date Verified: FEB 17, 2024 Quilter Fixer E-Sig:/ES/TA YUSUF MD Report: CASE: [id number] EXAMINATION: Modified barium swallow INDICATION: Dysphagia COMPARISON: No prior study is available for comparison. FLUORO TIME: 2.4 minutes FINDINGS: A modified barium swallow examination to evaluate swallowing function was performed in conjunction with the speech pathologist. Fluoroscopy with video radiography was performed by the radiologist while the patient ingested barium of various consistencies. Further details may be obtained from the speech pathology note. Impression: Modified barium swallow, as above. Dictated by Judith Damon M.D. (radiology technician). I, Ta Yusuf, have reviewed the images and report and concur with these findings. Primary Interpreting Staff: TA YUSUF MD, Radiologist (Quilter Fixer) Primary Interpreting Resident: JUDITH DAMON, Resident Physician /TA CABRAL [facility] Encounter Notes: All associated encounter notes This section contains the clinical notes associated to the Encounter. Date/Time Encounter Note(s) Provider Source March 17, 2024 08:55 AM OPTOMETRY CONSULT: [facility] TITLE: OPTOMETRY CONSULT [facility] STANDARD TITLE: OPTOMETRY CONSULT DATE OF NOTE: MARCH 17, 2024@08:55 ENTRY DATE: MARCH 17, 2024@08:55:17 AUTHOR: KATIE SHEETS EXP COSIGNER: URGENCY: STATUS: COMPLETED Ocular Coherence Tomography Report RNFL/ONH and Macula Note: The image can be viewed on [employer] [facility] Reason for OCT: 1. asymmetric CDR Assessment: RNFL OD: mild inferior RNFL thinning, avg RNFL 73 OS: no RNFL thinning, avg RNFL 78 OU: stable to 2019 zeiss Macula OD: normal foveal pit contour, tr ERM OS: normal foveal pit contour, tr ERM /es/ KATIE SHEETS O.D. Staff Physician, Optometry Signed: 03/17/2024 08:57 KATIE SHEETS [facility] March 17, 2024 07:47 AM OPTOMETRY NOTE: LOCAL TITLE: OPTOMETRY NOTE STANDARD TITLE: OPTOMETRY NOTE DATE OF NOTE: MARCH 17, 2024@07:47 ENTRY DATE: MARCH 17, 2024@07:48:09 AUTHOR: KATIE SHEETS EXP COSIGNER: URGENCY: STATUS: COMPLETED Last Seen: 10/02/2020 CC: 1. vision is blurry OD more than OS parkinson progressing but no c/o diplopia distance worse than near prefers to be without glasses for near has multiple near pairs at home Pt states no longer diabetic. was recently dx with prostate CA now is s/p radiation therapy, follows outside urology Ocular meds: none Ocular ROS: 1. Hx of DM without retinopathy OU 2. Ocular rosacea OU 3. Cataract OU 4. Asymmetric CDR OS > OD Family OcHX: (-) blindness (-) glaucoma (-) AMD (-) RD Cardiovascular ROS: no change from problem & medication lists CPRS Problem list, medications and allergies reviewed: CPRS Serology for Diabetes No GLUCOSE EO data found No HEMOGLOBIN A1C EO data found Cardiovascular BP: 128/83 (05/13/2023 10:13) Pulse: 58 (05/13/2023 10:13) Neuro: Orientation: Normal Psych: Mood/Affect: Normal Depression/suicide ideation: NO VISUAL ACUITY With correction Distance Visual Acuity OD: 20/20-2 OS: 20/20 Pupils PERRL OU (-)APD Confrontation: FTFC OU Extra-Ocular Muscles Full OU Covertest cc distance, 4XP cc near, 6XP' Externals/adnexa: Dermatochalsis OU Refraction: 10/02/2020 OD: -0.50 -1.50 x072 20/20, less shadowing & fluctuates with blink OS: -0.50 -1.25 x105 20/20, less shadowing & fluctuates with blink Add: +2.50 Refraction 03/17/2024 OD: -0.50 -1.50 x073 20/20 OS: -0.75 -1.00 x105 20/20 Add: +2.50 SLIT LAMP EXAMINATION Lids/Lashes/Lacrimal mild bleph with telangiectasia OU saponification OU Conjunctiva/Sclera White/quiet OU Cornea Clear OU - instant TBUT OU Ant Chamber Deep and quiet OU Iris Normal, (-)NVI OU Lens 1+ NS with tr cortical spoking OU Intraocular Pressures (Goldmann) 1 gtt fluress Date: O.D. O.S. Time Meds 10/02/20 14 15 0924 none 03/17/2024 13 13 0809 none RETINAL EVALUATION 1 phenyleph 2.5%, 1 trop 1% OU DFE Dilated retinal exam Optic Nerve OD: 0.4 CDR Flat, pink, distinct (-)NVD, sloping temporal OS: 0.6 CDR Flat, pink, distinct (-)NVD, sloping temporal Vessels: 2/3 OU, (-)NVE OU Posterior Pole: OD: (-) Hemorrhages (-) exudates (-) cotton wool spots OS: (-) Hemorrhages (-) exudates (-) cotton wool spots Macula: OD: tr ERM without traction (-)CSME OS: tr ERM without traction (-)CSME Periphery: OD: Flat and attached OS: Flat and attached Vitreous: Syneresis OU Assessment/Plan 03/17/2024 1. Blepharitis/TAISHA OU - Pt asymptomatic but could be contributing to fluctuating vision - (+)parkinsons - Has not been using any treatment - Encouraged to increase ATs to QID OU, ordered - Edu pt on all findings, monitor 2. Low Risk Glaucoma Suspect 2/2 Asymmetric CDRs OS > OD - CDRs asymmetric and sloping temporal OS > OD, stable since 2018 - IOPs today; consistently low to normal without treatment - OCT RNFL today with mild RNFL thinning OD, no RNFL thinning OS stable to 2019 OCT RNFL - no known family history of glaucoma - Edu pt on all findings, IOP adequate for stable ONH appearance Treatment not indicated - Monitor yearly 3. Combined Cataracts OU - mild visual significance - Defer c/e until BVA is 20/40 or worse and signs/sx indicate 4. Refractive Error with Presbyopia, OU - BCVA stable with refraction today - Fluctuating vision likely 2/2 #1 - encouraged to use ATs regularly - Ordered new glasses, consult placed for and polarized sunglasses Pt edu on all findings and given the opportunity to have questions answered RTC 12 months, sooner prn /es/ KATIE SHEETS O.D. Staff Physician, Optometry Signed: 03/17/2024 09:05 KATIE SHEETS [facility]
--- OUTSIDE RECORDS SUMMARY | 2025-03-09 11:56 | XMS_ITS | Encounter Summary ---
Author Name [facility] Organization [facility] Address [address] [place] [address] Care Team Providers Care Model Home Sales Greeter Name Role Phone ROSS FARRELL Primary Care [...] SUPPL EMENT March 16, 2017 PLAN F [id number] [phone] Jose Luis SANTA PATIENT MEDICARE (WNR) MEDICARE (M) PART B March 16, 2017 PART B [id number] Jose Luis SANT[place] PATIENT MEDICARE (WNR) MEDICARE (M) PART A March 16, 2016 PART A [id number] Jose Luis SANTA PATIENT Selected Encounter This section includes the information on record at [place] for the Encounter. Date/Time Encounter Type Encounter Description Reason Provider Source May 26, 2024 08:00 AM OFFICE O/P EST MOD 30 MIN PSYCHOGERIATRIC - INDIVIDUAL ICD-10-CM G20.A1 Parkinson's dis w/o dyskinesia, w/o mention of fluctuations YANGMeliton INGRAM IHJessica Encounter Template Text not used by [facility] Assessments - Encounter Diagnoses This section includes the primary and secondary diagnoses documented for the Encounter. Date/Time Primary/Secondary Diagnosis Diagnosis Name Provider Source May 26, 2024 08:26 AM PRIMARY Parkinson's dis w/o dyskinesia, w/o mention of fluctuations [facility] May 26, 2024 08:26 AM SECONDARY Anxiety disorder, unspecified YANGCAMMIE MORAN [facility] Plan of Treatment: Future Appointments (+ 6 months) and Future Tests (+/- 45 days) The Plan of Treatment section includes future care activities for the patient from all [facility]. This section includes future appointments and future orders which are active, pending or scheduled. Future Appointments This section includes appointments that were scheduled to occur 6 months from the date of the Encounter, up to a maximum of 20 appointments. The data comes from all [place] treatment facilities. Appointment Date/Time Appointment Type Appointme nt Facility Name May 31, 2024 02:30 PM AMBULATORY - MEDICINE [facility] Active, Pending, and Scheduled Orders This section includes a listing of several types of active, pending, and scheduled orders, including clinic medications orders, diagnostic test orders, procedure orders and consult orders; where the start date of the order is 45 days before the date of the Encounter or 45 days after the date of theEncounter. The data comes from all [facility]. Test Date/Time Test Type Test Details Facility Name May 31, 2024 12:00 AM Laboratory - Chemi stry Order URINALYSIS (STL-PB) URINE SP ONCE [facility] May 31, 2024 12:00 AM Laboratory - Chemi stry Order MICRAL/CREAT PROFILE (STL) URINE SP [facility] Lab Results: +/- 30 days of the encounter This section includes the Chemistry and Hematology Lab Results on record with [place] for the patient. Radiology Reports and Pathology Reports are provided separately, in subsequent sections. Lab Results This section contains the Chemistry/Hematology Results that were resulted 30 days before or 30 daysafter the date of the Encounter. Date/Time Source Result Type Result - Unit Interpretation Reference Range Specimen Type Comment May 31, 2024 03:13 PM [facility] PROST. SPECIFIC AG.(PB-STL) SERUM Specimen Ty pe: SERUM Comment: The listed sex of this patient may not be a typical indication for this test. Therefore, reference ranges or interpretive criteria listed may not be valid. Clinical correlation suggested. Ordering Provider: PHILOMENA LEAVITT Report Released Date/Time: Nov 17, 2023 07:12 AM Reporting Lab: [facility] [address] [place] [address] Performing Lab: [facility] [address] [place] [address] PROST. SPECIFIC AG.(PB-STL) 0.804 ng/mL 0.000-4.000 May 31, 2024 03:[address] [facility] LIPID PANEL (STL) PLASMA Specimen Type: PLASM A Comment: No hemolysis noted. Ordering Provider: ROSS FARRELL Report Released Date/Time: May 31, 2024 03:05 PM Reporting Lab: [facility] [address] [place] [address] Performing Lab: [facility] [address] [place] [address] CHOLESTEROL 195 mg/dL 0-200 TRIGLYCERIDE 147 mg/dL 0-150 CALCULATED LDL 125 mg/dL See Interp HDL(New) 41 mg/dL > 40 May 31, 2024 03:[address] [facility] COMPREHENSIVE METABOLIC PANEL PLASMA Specimen Type: PLASMA Comment: No hemolysis noted. Ordering Provider: ROSS FARRELL Report Released Date/Time: May 31, 2024 03:05 PM Reporting Lab: [facility] [address] [place] [address] Performing Lab: [facility] [address] [place] [address] CREATININE 1.00 mg/dL 0.70-1.30 UREA NITROGEN 19.1 [...] 79.47 >60 May 31, 2024 03:13 PM [facility] HGA1C BLOOD Specimen Type: BLOOD No comment entered. Ordering Provider: ROSS FARRELL Report Released Date/Time: May 31, 2024 03:05 PM Reporting Lab: [facility] [address] [place] [address] Performing Lab: [facility] [address] [facility] [id number] HGA1C 6.0 4.0-6.0 May 31, 2024 03:13 PM [facility] CBC BLOOD Specimen Type: BLOOD No comment entered. Ordering Provider: ROSS FARRELL Report Released Date/Time: May 31, 2024 03:05 PM Reporting Lab: [facility] [address] [facility] [id number] Performing Lab: [facility] [address] [facility] [id number] WBC 7.1 10*3/uL 3.6-11.2 RBC 4.57 10*6/uL [...] 0.60 BASOPHILS, ABSOLUTE 0.02 10*3/uL 0.00-0. 20 Social History: Smoking Status (Most current) and Tobacco Use (All prior to encounter date) This section includes the most current, and the historical, smoking and tobacco- related health factors from the [place] facility where the Encounter took place. Current Smoking Status This section includes the most current smoking, or tobacco-related health factor, from the [place] facility where the Encounter took place. Date/Time Current Smoking Status Comment Ludivina haynes Mar 01, 2018 10:44 AM VA-TOBACCO FORMER USER [facility] Tobacco Use History This section includes a history of the smoking, or tobacco-related health factors, that were collected on or before the date of the Encounter. The data comes from the [place] facility where the Encounter took place. Date/Time Smoking Status/Tobacco Use Comment F acjareth Mar 01, 2018 10:44 AM VA-TOBACCO QUIT 15 YRS OR MORE [facility] Mar 01, 2018 09:42 AM QUIT TOBACCO >7 YEARS AGO [facility] Aug 31, 2017 09:13 AM QUIT TOBACCO >7 YEARS AGO [facility] Jan 29, 2017 01:06 PM QUIT TOBACCO >7 YEARS AGO [facility] Encounter Notes: All associated encounter notes This section contains the clinical notes associated to the Encounter. Date/Time Encounter Note(s) Provider Source May 26, 2024 08:18 AM PSYCHIATRY NOTE: LOCAL TITLE[facility] STAND[facility] TITLE: PSYCHIATRY NOTE DATE OF NOTE: MAY 26, 2024@08:18 ENTRY DATE: MAY 26, 2024@08:18:15 AUTHOR: GEE SORIA EXP COSIGNER: URGENCY: STATUS: COMPLETED [facility] - MEDICATION MANAGEMENT Name..................KIET,ST MELODY [address]OX Age...................74 Sex...................MALE SSN...................[id number] Today's Date..........MAY 26, 2024 Service Connection....Service Connected: Yes (100%) ALLERGIES: LISINOPRIL, OXYBUTYNIN CHLORIDE OUTPATIENT MEDICATIONS: Active Outpatient Medications (excluding Supplies): Issue Date Status Last Fill Active Outpatient Medications Refills Expiration ========= 1) CARBIDOPA 25/LEVODOPA 100MG TAB Qty: ACTIVE Issu:01-22-24 540 for 90 days Sig: TAKE 2 TABLETS Refills: 1 Last:04-14-24 BY MOUTH THREE TIMES A DAY FOR Expr:01-22-25 PARKINSON DISEASE 2) CARBOXYMETHYLCELLULOSE NA 0.5% OPH SOLN ACTIVE Issu:03-17-24 Qty: 45 for 90 days Sig: INSTILL 1 Refills: 3 Last:03-17-24 DROP IN BOTH EYES FOUR TIMES A DAY Expr:03-18-25 NEEDED 3) TAMSULOSIN HCL 0.4MG CAP Qty: 90 for 90 ACTIVE (S) Issu:05-18-24 days Sig: TAKE ONE CAPSULE BY MOUTH Refills: 3 Last:07-29-24 EVERY EVENING APPROXIMATELY 30 MINUTES Expr:05-19-25 AFTER THE SAME MEAL EACH DAY 4) VIBEGRON 75MG TAB Qty: 90 for 90 days ACTIVE (S) Issu:05-18-24 Sig: TAKE ONE TABLET BY MOUTH ONCE A Refills: 3 Last:07-30-24 DAY FOR OVERACTIVE BLADDER Expr:05-19-25 Issue Date Status Last Fill Pending Outpatient Medications Refills Expiration ========= 1) BUSPIRONE HCL 10MG TAB Qty: 135 Sig: PENDING TAKE ONE-HALF TABLET BY MOUTH THREE Refills: 0 TIMES A DAY DO NOT TAKE WITH GRAPEFRUIT JUICE. Start Date Active Non-VA Medications Refills Expiration ========= 1) Non-VA ASPIRIN 81MG EC TAB SiMG BY ACTIVE MOUTH ONCE A DAY 2) Non-VA CARBIDOPA 25/LEVODOPA 100MG TAB ACTIVE Si TABLETS BY MOUTH THREE TIMES A DAY 3) Non-VA EZETIMIBE 10MG TAB SiMG BY ACTIVE MOUTH ONCE A DAY 4) Non-VA LOSARTAN 100MG TAB SiMG BY ACTIVE MOUTH ONCE A DAY 5) Non-VA MIRTAZAPINE 7.5MG TAB Sig: ACTIVE 3.75MG BY MOUTH AT BEDTIME 6) Non-VA PROPRANOLOL HCL 60MG SA CAP Sig: ACTIVE 60MG BY MOUTH ONCE A DAY 7) Non-VA ROSUVASTATIN CA 40MG TAB Sig: ACTIVE 40MG BY MOUTH EVERY EVENING 8) Non-VA TAMSULOSIN HCL 0.4MG CAP Sig: ACTIVE 0.4MG BY MOUTH EVERY EVENING 13 Total Medications PROBLEM LIST: 1) CAD - Coronary artery disease (SNOMED CT 47806717) 2) Essential hypertension (SNOMED CT 67135674) 3) Mixed hyperlipidemia (SNOMED CT 152369670) 4) Impaired glucose tolerance 5) Vitamin D deficiency 6) Parkinson's disease 7) Prostate cancer VITAL SIGNS: Pulse.................54 (05/18/2024 09:33) Temperature...........97.5 F [36.4 C] (05/18/2024 09:33) Blood Pressure........124/81 (05/18/2024 09:33) Pain..................0 (05/18/2024 09:33) Weight................214 lb [97.07 kg] (05/18/2024 09:33) Patient Weight History - Last Four 1. 214.0 lbs. / 97.1 kg. on MAY 18, 2024@09:33:35 2. 203.0 lbs. / 92.1 kg. on MAY 13, 2023@10:13:28 3. 205.1 lbs. / 93.0 kg. on FEB 11, 2023@09:17:09 4. 229.6 lbs. / 104.1 kg. on AUG 20, 2021@09:05 LAB VALUES: CBC No CBC EO data found CHEM 7 No BASIC METABOLIC PANEL (BMP) EO data found HEPATIC PANEL No data available TRIGLYCERIDES...____ CHOLESTEROL.....No CHOLESTEROL EO data found TSH.............No TSH (2YR) EO data found LITHIUM.........____ VALPROIC ACID...____ DIAGNOSIS BEING TREATED THIS VISIT: PARKINSONISM, ANXIETY NOS ANY COMPLAINTS/PROBLEMS.......Yes CAME WITH HIS ON TIME AND HE IS WALKING ON HIS OWN. i AM DOING WELL AND YOUR MEDICINE ISHELPING . HE IS OFF MNIRTAZAPINES. HE IS FEELING LOT BETTER AND CONFIRMS THAT. HE WENT TO VISIT HIS FAMILY AND I DID GOOD .HE FEELS LESS ANXIOUS AND MORE INTERACTION WITHOTHERS HE DENIES MARCELINO OR PSYCHOSIS. HE DENIES GEMA THOUGHTS. NO ACUTE RISK OF HARM TO SELF OR OTHERS AT THIS TIME. HE LIKES BUSPAR INCREASED SICNE MORE ANXIETYIN THE EVENINGS REPORTED. HE WILL TAKE 5MG TID INSTEAD OF BID.HE IS GETTING 5 TO 6 HOURS OF SLEEP. PTSD SYMPTOMS: Patient is not currently having active PTSD symptoms SMOKES...No DRINKS...No DRUGS....No MOOD: DOING MUCH BETTER . ACTIVITIES: TAKE WALKS [place],. WATCH TV, TAKE NAPS CONTACT: Mendy Finn GOAL: STABILISE MOOD ANY MEDICATION SIDE EFFECT....No APPETITE......................Go od SLEEP.........................Fa ir This provider engaged the [place] in shared decision-making/treatment planning. MENTAL STATUS: MOOD/AFFECT.................Norm al DOING MUCH BETTER . DELUSIONS/HALLUCINATIONS....Abse nt DENIES SUICIDAL/AGGRESSIVE.........Abse nt DENIES ALERT & ORIENTED X3 WITH GOOD CONCENTRATION........Yes COMMENTS: None NELATY DRESSED WELL GROOMED POLITE CO-OP AND FRIENDLY WHITE MALE WITH MOUSTACHE AND POSITIVE DISPOSITION MEDICATION CHANGE.............No WILL TAKE BUSPAR 5MG TID AND HE IS OFF MIRTAZPINES. SUPPORTIVE PSYCHOTHERAPY......Yes THEY LIKE FOLLOW UP AFTER XMAS IN 6 MONTHS.HAD GOOD SESSION. BOTH SATIFIED AND APPRECIATIVE. TIME PSENT 20 MINUTES. GAF:No previous GAF entered. Current [...] Gee Soria M.D. Staff Physician, Psychiatry [facility] Signed: 05/26/2024 08:26 [facility]
--- OUTSIDE RECORDS SUMMARY | 2025-03-09 11:56 | XMS_ITS | Continuity of Care Document ---
Author Organization [facility] Address [address] [place] [address] [place] [address] Phone Care Team Providers Care Job Developer Name Role Phone Mckeon OD, Sean Unavailable Unavailable Procedures Procedure Date Office/outpatient Visit, Est Office/outpatient Visit, Est Office/outpatient Visit, Est Office/outpatient Visit, Est Office/outpatient Visit, Est Advance Directives Directive Yes / No Effective Date File Name No Information Encounters Encounter Description Practice Location Reason(s) For Visit Diagnoses Date Provider Providers Copied on Encounter [place] [facility] [place] [address] [place] [address] [address], [place], [place], [id number], tel:[phone] [facility] No Information Sep-2 8-201 0 Mckeon OD Sean. [address] , [address], [place], [place], [facility], . tel:[phone] [place] [facility] [place] [address] [place] [address] [address], [place], [place], [id number], tel:[phone] [facility] No Information Sep-2 2-201 0 Mckeon OD Sean. [address] [address] [facility] , [address], [place], [place], [facility], . tel:[phone] [place]pat [place] [facility] [place] [address] [place] [address] [address], [place], [place], [id number], tel:[phone] [facility] No Information Sep-2 0-201 0 Doisy Edward. [facility] , [address], [place], [place], [facility], . tel:[phone] Office/outpat ient Visit, [facility], [address], [place], [place], [id number], [place] tel:[phone] [facility] No Information Miugel-1 7-200 8 Mckeon OD Sean. [facility] , [address], [place], [address], [place]. tel:[phone] Office/outpat ient Visit, [facility] [place] [address], [place], [place], [id number], [place] tel:[phone] [facility] No Information Apr-0 8-200 8 Mckeon OD Sean. [facility] , [address], [place], [address], [place]. tel:[phone] Family History Family Member Type Diagnosis Age At Onset No Information Payers Payer name Insurance type Covered republican ID Authoriza tion(s) No Information Social History Type Description Quantity Date Captured Comments Sex Male Smoking Status No Information Chief Complaint And Reason For Visit No Information Reason For Referral Reason For Referral No Information History Of Present Illness Encounter Date Complaint History Of Prese nt Illness No Information Functional Status Date Functional Assessmen t No Information Instructions Date Instruction Additional Infor mation No Information Assessments Type Assessment Date No Information Patient Care Teams Name Effective Dates (start - stop) Status Members No Information
--- OUTSIDE RECORDS SUMMARY | 2025-03-09 11:56 | XMS_ITS | CONTINUITY OF CARE DOCUMENT ---
Author Name cristhian morrow Address Unknown Organization [facility] Address [address] [place] [address] [address] [place] [address] Phone [phone] Care Team Providers Care Dye House Helper Name Role Phone cristhian morrow Unavailable Unavailable
== END 2025-03-09 10:31 | disposition home or self-care (01) ==
PROVIDERS: PCP Family Medicine; Visit Provider Urology
DX: N20.0 Calculus of kidney (principal)
CPT/HCPCS: 74018

== ENCOUNTER 2025-03-22 09:00 | Outpatient (RCR) | payer MEDICARE, SELFPAY ==
--- NOTE | 2025-03-02 11:00 | OPREHPOC ---
Outpatient Therapy Plan of Care This is a Multidisciplinary Plan of Care that may contain components documented by all disciplines (PT, OT, and ST.) PT Problem 1 PT Problem #1 Knowledge Deficit PT Goal 1 Goal / Goal Update *independent with HEP Target Visit 10 PT Problem 2 PT Problem #2 Pain PT Goal 1 Goal / Goal Update * pt report pain at worst of R hip and back 04/25 Target Visit 10 PT Problem 3 PT Problem #3 Impaired Flexibility PT Goal 1 Goal / Goal Update improve flexibility of R & L hip, to decrease pull on lumbar spine: hamstring length with supine SLR 1* R 45' 2* L 45' 3* R hip flexion 100' in supine piriformis length with supine cross leg stretch, knee to mid line of body 4* R 5* L Target Visit 10 PT Problem 4 PT Problem #4 Impaired Strength PT Goal 1 Goal / Goal Update * increase strength of trunk and hips, to improve stability and support to spine: 1* pt static stand without trunk flexion/ upright trunk 2* gross strength of R and L hips 4+/5 single leg standing x 10 seconds 3* R 4* L Target Visit 10
--- NOTE | 2025-03-02 11:00 | PTOPEVAL1 ---
Assessment and note entered by Shania Rivas, PT Evaluation Information Assessment Status Evaluation ICD-10 Condition Codes (PT) Pain in right hip M25.551 Onset Dec 2024 Subjective Information more pain in R hip, limping more; have not had any falls have ache and pain in both knees also; slight pain in L hip at times xray of hip: mild OA of hip, lumbar spondylosis activity: do not use cane or walker; out in community; live in one story home with basement laundry independent with bathing, dressing, home tasks; does not do any leg exercises; have stationary bicycle at home-- not use it Reported Pain Level Pain Score 4: Self Report Additional Pain Score Comments range of the past week 1-9/10; posterior hip- aching, sharp at times; sometimes radiate to medial thigh and posterior calf increase pain: in morning with first getting out of bed decrease pain: sit in recliner, muscle cream, over the counter meds, heat pad Assessment PT Clinical Summary Mamadou has the diagnosis of R hip pain. Also has Low back pain, radicular to R calf. Reports chronic issues with back and hip pain. xray reports mild OA of R hip and lumbar spondylosis. LE function scale rating of 65% limitation in activity level. He is independent with self care and home tasks, with difficulty with putting on shoes and socks. With the evaluation: he has tightness over R hip flexion & IR motions, with pain increase; hamstring tightness with supine SLR of 35'; poor standing position of trunk and hips- with forward rotation of R shoulder, trunk and hip; weakness over hips. Skilled PT services are indicated for modalities to decrease pain of R hip and back; therapeutic exercises to increase flexibility of trunk and hips, with education for HEP and posture/body mechanics. Plan of Care Interventions Electrical Stimulation,Hot Pack/Cold Pack,Manual Therapy,Neuro Re-education,Patient/Caregiver Education,Therapeutic Activities,Therapeutic Exercise,Ultrasound,Other Other Interventions taping PT Services Indicated Yes Treatment Frequency and 1-2x/wk for 10 visits Duration These treatments will address the objective and functional deficits as defined above. The patient will be advanced safely and appropriately in order for the patient to progress towards his/her prior level of function. Additional exercises will be introduced and as well as a comprehensive home exercise program upon discharge, if needed, ?to ensure carryover of functional gains achieved in the clinic. This treatment plan has been reviewed and agreement upon by the patient.
--- NOTE | 2025-03-22 15:52 | OPREHPOC ---
Outpatient Therapy Plan of Care This is a Multidisciplinary Plan of Care that may contain components documented by all disciplines (PT, OT, and ST.) PT Problem 1 PT Problem #1 Knowledge Deficit PT Goal 1 Goal / Goal Update *independent with HEP 03-22-25 d/c goals were not addressed discharge due to pt having surgery. Target Visit 10 PT Problem 2 PT Problem #2 Pain PT Goal 1 Goal / Goal Update * pt report pain at worst of R hip and back 04/25 03-22-25 d/c goals were not addressed discharge due to pt having surgery. Target Visit 10 PT Problem 3 PT Problem #3 Impaired Flexibility PT Goal 1 Goal / Goal Update improve flexibility of R & L hip, to decrease pull on lumbar spine: hamstring length with supine SLR 1* R 45' 2* L 45' 3* R hip flexion 100' in supine piriformis length with supine cross leg stretch, knee to mid line of body 4* R 5* L 25 d/c goals were not addressed discharge due to pt having surgery. Target Visit 10 PT Problem 4 PT Problem #4 Impaired Strength PT Goal 1 Goal / Goal Update * increase strength of trunk and hips, to improve stability and support to spine: 1* pt static stand without trunk flexion/ upright trunk 2* gross strength of R and L hips 4+/5 single leg standing x 10 seconds 3* R 4* L 03-22-25 d/c goals were not addressed discharge due to pt having surgery. Target Visit 10
--- NOTE | 2025-03-22 15:52 | PTOPDC ---
Assessment and note entered by Shania Rivas, PT Assessment Status Discharge - Pt Not Present ICD-10 Condition Codes (PT) Pain in right hip M25.551 Onset Dec 2024 Subjective Information pt is having surgery for kidney stones. Reported Pain Level Pain Score Assessment PT Clinical Summary Nando has had 4 PT sessions. He will be having surgery for kidney stones. Discharge PT at this time. He will obtain a new order for additional therapy if needed after he is released from his surgery. Plan of Care PT Services Indicated No
== END 2025-03-23 09:45 | disposition home or self-care (01) ==
LOC: ANHPT 09:00
PROVIDERS: PCP Family Medicine; Visit Provider Family Medicine
DX: M25.551 Pain in right hip (principal)
CPT/HCPCS: 97110; 97140; 97161; 97530

== ENCOUNTER 2025-03-23 08:02 | Emergency (ER) | payer MEDICARE, SELFPAY ==
--- NOTE | ~2025-03-23 | XR_ITS ---
EXAMINATION: [id number] DATE: 03/23/2025 08:36 INDICATION: Anterolateral right lower rib pain TECHNIQUE: A frontal inspiratory view of the chest and 3 views of the right ribs were obtained. COMPARISON: None FINDINGS: Minimally displaced fracture of the anterior right seventh rib which is new since CT dated 01/16/2025. No other rib fractures identified. Lungs are clear with no focal airspace opacities, pulmonary edema, pleural effusion or pneumothorax. Heart size is normal. Postoperative change of prior median sternot tad and coronary artery bypass grafting as well as mitral valve repair. IMPRESSION: 1. Recent-appearing minimally displaced anterior right seventh rib fracture. 2. No acute cardiopulmonary disease. Reviewed, dictated and finalized at location A.
--- NOTE | 2025-03-23 08:04 | ED_ITS ---
HPI - General Adult General Chief complaint: Unspecified Stated complaint: right side rib pain Time Seen by Provider: 03/23/25 08:20 Source: patient, RN notes reviewed and old records reviewed Mode of arrival: ambulatory Limitations: no limitations History of Present Illness HPI narrative: 74 yo male presents to the [facility] with C/O right anterior lateral rib pain since Thursday night Thursday. States that he rolled over in bed, got tangled in his blankets as he was trying it get out of the tingle blankets he rolled over on his fist. [place] a pop and a crack. Has been taking Aleve and Tylenol. Denies any chest pain, shortness of breath. No erythema, ecchymosis noted. Treatments prior to arrival: other ( Tylenol, Aleve) Related Data Home Medications ?Medication ?Instructions ?Recorded ?Confirmed ?Last Taken ?Type carbidopa 25 mg-levodopa 100 mg 3 tablet PO TID 04/09/20 03/23/25 Unknown History tablet losartan 100 mg tablet 100 mg PO DAILY 04/09/20 03/23/25 Unknown History propranolol 60 mg tablet 60 mg PO DAILY 04/09/20 03/23/25 Unknown History rosuvastatin 40 mg tablet 40 mg PO DAILY 04/09/20 03/23/25 Unknown History omega-3 fatty acids-fish oil 360 1 cap PO DAILY 10/23/22 03/23/25 Unknown History mg-1,200 mg capsule (Fish Oil) tamsulosin 0.4 mg capsule 0.4 mg PO DAILY 10/23/22 03/23/25 Unknown History mirtazapine 7.5 mg tablet 3.75 mg PO HS 12/19/22 03/23/25 Unknown History mirabegron 25 mg tablet,extended 25 mg PO DAILY 05/27/23 03/23/25 Unknown History release 24 hr (Myrbetriq) aspirin 81 mg tablet,delayed 81 mg PO DAILY 02/13/25 03/23/25 Unknown History release buspirone 5 mg tablet 5 mg PO TID 02/13/25 03/23/25 Unknown History ezetimibe 10 mg tablet 10 mg PO DAILY 02/13/25 03/23/25 Unknown History hydrochlorothiazide 25 mg tablet 25 mg PO DAILY 02/13/25 03/23/25 Unknown History isosorbide dinitrate 30 mg tablet 30 mg PO ONCE 02/13/25 03/23/25 Unknown History Allergies Allergy/AdvReac Type Severity Reaction Status Date / Time No Known Allergies Allergy Verified 03/23/25 08:59 Review of Systems 2 Review of Systems: All systems reviewed & are unremarkable except as noted in HPI and below Constitutional: Constitutional: Reports no additional constitutional complaints ENT: Reports system reviewed and no additional complaints, except as documented Cardiovascular: Cardiovascular: Reports no additional cardiovascular complaints, Denies chest pain and Denies dyspnea Respiratory: Respiratory: Reports no additional respiratory complaints, Denies chest congestion, Denies cough and Denies dyspnea Musculoskeletal: Musculoskeletal: Reports as per HPI Integumentary/Breasts: Skin/Breast: Reports system reviewed and no additional complaints, except [facility]u [facility] Past Medical History Medical History Anxiety PVD (peripheral vascular disease) Malignant neoplasm of prostate (2020) 2020 Parkinson's disease 12/04 CAD (coronary artery disease) Mitral valve disease Surgical History Surgical History History of coronary artery stent placement (2004) H/O mitral valve repair (2016) S/P CABG x 2 (2016) Family History Family History Father Heart disease Mother Heart disease Social History Social History Smoking packs per day: 1.5 Smoking cigarettes per day: 30.0 Years smoked: 31 Smoking pack-years: 46.50 Smoking status: Former smoker Tobacco type: cigarettes Second hand tobacco smoke exposure: No Smoking end date: 11/16/92 Alcohol intake: never Substance use: never Substance use type: does not use Do You Feel Safe in your Home?: Yes Lack of Transportation: No Lack of Food: Never True Current Housing: I Have Housing Concerned About Future Housing: No Difficulty Paying Gas/Electric Bills: No Difficulty Paying for Meds: No Currently Unemployed: No Education: Trade/Vocational Certificate Difficulty w/ Childcare or Family Care: No Living arrangements: with family Spiritual care concerns: No Comments At the time of my signature, I reviewed and agree with the nursing past medical, surgical, social, and family history. There is no relevant family history pertinent to the patient complaint. Exam 2 Const: General: cooperative, comfortable, no acute distress, well developed, alert, ill appearing chronically and well nourished Nutritional Appearance: w ell nourished Orientation/consciousness: patient oriented x3 Limitations: no limitations HENMT: Head: normal to inspection Eyes: General: appearance normal, both eyes and all related structures A lignment and Position: alignment normal Neck: Neck: normal visual inspection, full ROM, no lymphadenopathy and no meningeal signs Chest: Chest palpation & inspection: normal inspection of the chest Chest/axillae images: 1. Tenderness to palpation without erythema, ecchymosis or swelling. Resp: Effort & Inspection: normal respiratory effort and able to speak in complete sentences Auscultation: clear to auscultation bilaterally, no crackles, no rales, no rhonchi and no wheezes Cardio: Rate: regular rate Skin: General skin exam: normal color and no rashes or lesions noted Neuro: General: patient oriented x3, gait normal, moves all extremities and no meningeal signs Cognition (Neuro): normal cognition Speech: normal speech Gait exam (Neuro): Normal gait present Extrem: General: normal to inspection, full ROM, capillary refill normal and normal gait Psych: Appearance: grossly normal and well kempt Mental Status: mental status grossly normal Speech and movement: Normal speech and movement present and Clear speech present Affect: normal affect Attitude: cooperative Course Course Level of Care: Express Care Visit Vital Signs Vital signs: Vital Signs Temperature 97.4 F L 03/23/25 08:18 Pulse Rate 86 03/23/25 08:18 Respiratory Rate 16 03/23/25 08:18 Blood Pressure 135/78 03/23/25 08:18 Pulse Oximetry 98 03/23/25 08:18 Oxygen Delivery Room Air 03/23/25 08:18 Temperature 97.4 F L 03/23/25 08:18 Pulse Rate 86 03/23/25 08:18 Respiratory Rate 16 03/23/25 08:18 Blood Pressure 135/78 03/23/25 08:18 Pulse Oximetry 98 03/23/25 08:18 Oxygen Delivery Room Air 03/23/25 08:18 Reviewed Medical Decision Making MDM Narrative Medical decision making narrative: Patient sitting in exam room. Patient is nontoxic, vitals stable. Patient presents with concerns for rib fracture, x-ray shows 7th rib fracture. Discussed treatment plan. Patient is appropriate for outpatient treatment with close follow-up, discussed signs and symptoms to proceed to the emergency room. Discharge instructions reviewed with patient, as well as provided in writing per nursing staff. The instructions also include specific and strict return/GO TO THE ER as well as f/u information. All questions have been answered, and the patient deny any further questions with discharge and discharge plan. Some parts of this dictation were generated by voice recognition software and may contain typographical and/or grammatical inaccuracies. Differential Diagnosis Differential Diagnosis: Rib contusion, strain muscle, rib fracture Medical Records Medical records reviewed: Yes I reviewed the external patient's medical records. Vital Signs Vital Signs: Vital Signs Temperature 97.4 F L 03/23/25 08:18 Pulse Rate 86 03/23/25 08:18 Respiratory Rate 16 03/23/25 08:18 Blood Pressure 135/78 03/23/25 08:18 Pulse Oximetry 98 03/23/25 08:18 Oxygen Delivery Room Air 03/23/25 08:18 Temperature 97.4 F L 03/23/25 08:18 Pulse Rate 86 03/23/25 08:18 Respiratory Rate 16 03/23/25 08:18 Blood Pressure 135/78 03/23/25 08:18 Pulse Oximetry 98 03/23/25 08:18 Oxygen Delivery Room Air 03/23/25 08:18 Reviewed Lab Data Lab results reviewed: Yes I reviewed the patient's lab results. Labs: Reviewed Critical Care Time Critical Care Time Critical Care Time: No Discharge Plan Discharge Clinical Impression: Fracture of rib, single, closed Patient Disposition: Home Condition: Stable Instructions: Antibiotic Form, How to Use an Incentive Spirometer (ED), Rib Fracture (ED) Additional Instructions: use your incentive spirometer, take deep breaths 10 times per hour while awake. do not wrap your ribs. This will increase her chances of developing pneumonia. Apply Lidoderm patch to the sore area for 12 hours on, 12 hours off continue to alternate Aleve and Tylenol per package instructions follow-up with primary care provider as needed for new or worsening symptoms please go directly to the nearest emergency room Patient Language: Frisian Prescriptions: New lidocaine [Lidoderm] 5 % adhesive patch,medicated 1 patch topical DAILY Qty: 30 0RF Rx Instructions: leave on most painful area for up to 12 hrs No Action aspirin 81 mg tablet,delayed release (DR/EC) 81 mg PO DAILY ezetimibe 10 mg tablet 10 mg PO DAILY buspirone 5 mg tablet 5 mg PO TID hydrochlorothiazide 25 mg tablet 25 mg PO DAILY isosorbide dinitrate 30 mg tablet 30 mg PO ONCE Rx Instructions: allow nitrate-free interval of 12-14 hrs per 24-hr period tamsulosin 0.4 mg capsule 0.4 mg PO DAILY omega-3 fatty acids-fish oil [Fish Oil] 360-1,200 mg capsule 1 cap PO DAILY propranolol 60 mg tablet 60 mg PO DAILY carbidopa-levodopa 25-100 mg tablet 3 tablet PO TID losartan 100 mg tablet 100 mg PO DAILY rosuvastatin 40 mg tablet 40 mg PO DAILY mirtazapine 7.5 mg tablet 3.75 mg PO HS mirabegron [Myrbetriq] 25 mg Tablet Extended Release 24 Hr 25 mg PO DAILY Follow-up/Referrals: Tyree Pettit DO [Primary Care Provider] - 2 Weeks ([facility] care follow up Right 7th rib fracture) Time of Disposition: 09:07
[2025-03-23 08:18] VITALS: BP 135/78; PULSE 86; RESP 16; TEMP 36.3; O2SAT 98
== END 2025-03-23 09:20 | disposition home or self-care (01) ==
PROVIDERS: Emergency Provider Nurse Practitioner; PCP Family Medicine
DX: S22.31XA Fracture of one rib, right side, initial encounter for closed fracture (principal); X58.XXXA Exposure to other specified factors, initial encounter; I73.9 Peripheral vascular disease, unspecified; I25.10 Atherosclerotic heart disease of native coronary artery without angina pectoris; F41.9 Anxiety disorder, unspecified; Z79.82 Long term (current) use of aspirin; Z85.46 Personal history of malignant neoplasm of prostate; Z95.5 Presence of coronary angioplasty implant and graft; Z95.1 Presence of aortocoronary bypass graft; Z87.891 Personal history of nicotine dependence
CPT/HCPCS: 71101; 99213; G0463